=== PATIENT | male | born 1995 | race Two or more races ===

== ENCOUNTER 2021-12-17 07:56 | Inpatient (IN) | payer OTHER, SELFPAY ==
[2021-12-17] VITALS (9 sets, daily range): BP systolic 93–124; BP diastolic 50–70; PULSE 79–95; RESP 14–18; TEMP 35.9–37.2; O2SAT 94–99; BMI 35.4
--- NOTE | ~2021-12-17 | US_ITS ---
EXAMINATION: US ABDOMEN COMPLETE CLINICAL INFORMATION: Nausea and vomiting. Transaminitis.. COMPARISON: None TECHNIQUE: Real-time imaging of the abdominal viscera. FINDINGS: PANCREAS: Not well visualized due to bowel gas ABDOMINAL AORTA: The proximal, mid, and distal segments are normal in caliber. INFERIOR VENA CAVA: Visualized portions are normal. LIVER: Liver echotexture is increased probably representing fatty infiltration. The liver is upper normal in size. The liver is normal in contour. No focal hepatic lesion. There is no intrahepatic biliary duct dilatation seen. GALLBLADDER: Normal. The gallbladder is physiologically distended without evidence of stones, sludge, polyps, wall thickening or pericholecystic fluid. COMMON BILE DUCT: Normal in caliber measuring 0.2 cm in diameter. RIGHT KIDNEY: Normal. No hydronephrosis. No renal calculi or focal parenchymal lesions. The kidney measures 12.5 cm in maximum dimension. LEFT KIDNEY: There is a 5 mm stone in the midpole. No hydronephrosis. No focal parenchymal lesions. The kidney measures 12.6 cm in maximum dimension. SPLEEN: The spleen is enlarged. The spleen measures 14 cm in maximum dimension. There is a 2 x 3 cm splenule. FREE FLUID: None. US/US abdomen complete IMPRESSION: Echogenic liver probably representing fatty infiltration. Upper normal-size liver and slightly enlarged spleen. Left renal stone. Nonvisualization of the pancreas.
--- NOTE | 2021-12-17 08:39 | ED_ITS ---
HPI - Nausea/Vomiting/Diarrhea General Chief complaint: Nausea/Vomiting/Diarrhea Stated complaint: nausea Time Seen by Provider: 12/17/21 08:31 Source: patient Mode of arrival: ambulatory History of Present Illness HPI Narrative: 26-year-old male with no significant past medical history presenting to the ED complaining of fever T-max 102 degrees x 3-4 days, nausea, vomiting/dry heaving, and inability to tolerate p.o. x5 days. Denies fever today or taking antipyretics. Admits tested negative for COVID-19 on Thursday and Thursday. Den ies ear pain, sore throat, cough, SOB/CP, abdominal pain, dysuria/hematuria, recent travel, suspicious food intake, sick contacts MD elicited complaint: nausea and vomiting Onset (ago): day(s) Related Data Allergies Allergy/AdvReac Type Severity Reaction Status Date / Time No Known Allergies Allergy Verified 12/17/21 08:17 Review of Systems Review of Systems: Constitutional: + Fever, No Chills,No Fatigue, No Malaise, +anorexia ENT/Mouth: No Ear Pain, No Nasal Congestion, No Sinus Pain, No Hoarseness, No sore throat, No Rhinorrhea, No Swallowing Difficulty Eyes: No Eye Pain, No Swelling, No Redness, No Foreign Body, No Discharge, No Vision Changes Cardiovascular: No Chest Pain, No SOB, No Dyspnea on Exertion, No Palpitations Respiratory: No Cough, No Sputum, No Dyspnea Gastrointestinal: + Nausea, + Vomiting, No Diarrhea, No Constipation, No Abdominal pain Genitourinary: No Dysuria, No Urinary Frequency, No Hematuria, No Urinary Incontinence/retention, No Flank Pain Musculoskeletal: No joint pain, No Myalgias, No Joint Swelling Skin: No Skin Lesions, No rash Neuro: No Weakness, No Dizziness, No Headache Yes all other systems are reviewed and are negative [facility] Past Medical History Attestation statement: The following information was validated with the patient. Social History Social History Advance Directives: No Advance Directives Information Provided: No Physical Exam Vital Signs: Vital Signs: Last Vital Signs Temp 98.3 F 12/17/21 12:15 Pulse 90 12/17/21 12:15 Resp 18 12/17/21 12:15 BP 114/65 12/17/21 12:15 Pulse Ox 98 12/17/21 12:15 BMI result Body Mass Index 35.4 Const: General: cooperative, healthy appearing, no acute distress, alert and awake Orientation/consciousness: patient oriented x3 Limitations: no limitations HEENT: Head: Yes normal to inspection and Yes atraumatic Ears: hearing grossly normal bilaterally General nose exam: Normal external nose present Face and sinus: Yes normal facial exam Mouth: moist mucous membranes abnormal (Dry mucous membranes) Throat: Yes posterior oropharynx normal, Yes uvula midline and No peritonsillar mass Eyes: General: appearance normal, both eyes and all related structures EOM: EOMs intact bilaterally Neck: Neck: Yes normal visual inspection and Yes no meningeal signs Resp: Effort & Inspection: normal respiratory effort and no respiratory distress Auscultation: clear to auscultation bilaterally, no rales, no rhonchi and no wheezes Cardio: Rate: regular rate Heart sounds: S1 normal heart sound present and S2 normal heart sound present GI: Inspection: Yes normal to inspection Palpation (GI): Soft to palpation, nontender, no guarding and not rigid : General: Yes no CVA tenderness Back/Spine/Pelvis: Back: no CVA tenderness Skin: Rashes: no rashes Wounds: no wounds Neuro: General: patient oriented x3, tone normal and no meningeal signs Gait exam (Neuro): Normal gait present Extrem: General: Yes normal to inspection Course Course Course Narrative: -no leukocytosis. BUN elevated to 40 > likely from dehydration. -Magnesium elevated, bilirubins elevated and +transaminitis >> acetaminophen, hepatitis panel, and abdominal ultrasound ordered >>denies EtOH use -1040--CPK elevated to 2770 > third L of IVF ordered -1221--US abdomen complete IMPRESSION: Echogenic liver probably representing fatty infiltration. Upper normal-size liver and slightly enlarged spleen. Left renal stone. Nonvisualization of the pancreas. >> will consult GI -Dr. Paez recommended additional labs which were ordered. He will evaluate patient in determine the need for MRI. Patient admitted to hospitalist for further management MDM - Nausea/Vomiting/Diarrhea MDM Narrative Medical decision making narrative: 26-year-old male with no significant past medical history presenting to the ED complaining of fever T-max 102 degrees x 3-4 days, nausea, vomiting/dry heaving, and inability to tolerate p.o. x5 days. On exam vital signs stable, NAD/nontoxic appearing, dry mucous membranes noted, abdomen soft/nontender, lungs CTA. Concern for viral illness including COVID-19/influenza vs gastroent eritis vs dehydration and metabolic abnormalities. Rule out infectious etiology. Low concern for severe sepsis. No concern for appendicitis/diverticulitis or pancreatitis at this time Plan: Labs, UA, IVF, symptomatic treatment, COVID 19/influenza testing, p.o. challenge, re-evaluate Differential Diagnosis Differential diagnosis: Likely traveler's diarrhea, food poisoning, gastroenteritis and dehydration Medical Records Attestation: I reviewed the patient's medical records. Lab Data Attestation: I reviewed the patient's lab results. Result diagrams: 12/17/21 09:10 12/17/21 09:10 Labs: Lab Results 12/17/21 12/17/21 12/17/21 Range/Units 09:10 09:10 09:10 WBC 5.1 (4.8-10.8) X10*3/uL RBC 5.94 H (4.60-5.80) X10*6/uL Hgb 16.4 (14.0-18.0) g/dl Hct 47.7 (42.0-52.0) % MCV 80.3 (80.0-98.0) fL MCH 27.6 (27.0-33.0) pg MCHC 34.4 (31.0-36.0) g/dl RDW 13.4 (11.0-16.0) % Plt Count 186 (160-400) X10*3/uL MPV 12.1 (9.4-12.4) fL Immature Gran % (Auto) Cancelled Neut % (Auto) Cancelled Lymph % (Auto) Cancelled [place] % (Auto) Cancelled Eos % (Auto) Cancelled Baso % (Auto) Cancelled Lymph # (Auto) Cancelled [place] # (Auto) Cancelled Eos # (Auto) Cancelled Baso # (Auto) Cancelled Abs Immat Gran (auto) Cancelled Absolute Neuts (auto) Cancelled Absolute Nucleated RBC 0.000 (0.0-0.012) X10*3/uL Nucleated RBC % (auto) 0.0 (0.0-0.2) /100WBC Neutrophils % (Manual) 63 (45-73) % Band Neutrophils % 0 L (3-5) % Lymphocytes % (Manual) 26 (20-40) % Atypical Lymphs % (Man) 6 (0-6) % Monocytes % (Manual) 5 (2-11) % Abs Neuts (Manual) 3.2 (2.0-8.3) X10*3/uL Lymphocytes # (Manual) 1.3 (1.2-4.9) X10*3/uL Atyp Lymphs # (Manual) 0.3 x10*3/uL Monocytes # (Manual) 0.3 (0.1-1.2) X10*3/uL Platelet Estimate NORMAL (NORMAL) Plt Morphology Comment NORMAL RBC Morphology NORMAL Sodium 146 H (135-145) mmol/L Potassium 4.5 (3.3-5.1) mmol/L Chloride 109 H (96-108) mmol/L Carbon Dioxide 23 (22-29) mmol/L Anion Gap 19 (12-20) BUN 40 H (9-16) mg/dL Creatinine 1.36 (0.5-1.4) mg/dL Estim Creat Clear Calc 96.2 Estimated GFR > 60 Random Glucose 153 H (60-115) mg/dL Calcium 9.4 (8.4-10.2) mg/dL Magnesium 3.3 H (1.6-2.6) mg/dL Total Bilirubin 4.0 H (0.0-1.0) mg/dL Direct Bilirubin 2.5 H (0.0-0.5) mg/dL AST 186 H (5-37) U/L ALT 153 H (0-40) U/L Alkaline Phosphatase 104 (39-117) U/L Total Creatine Kinase 2770 H (38-174) U/L Total Protein 8.3 H (6.5-8.0) g/dL Albumin 4.2 (3.5-5.0) g/dL Lipase 90 H (8-78) U/L Acetaminophen < 1 (<30) mcg/mL COVID-19 (ZAC) Negative (Negative) COVID-19 Clin Com See Note Hep Bs Antigen (Negative) Hep Bs Antibody (Nonreactive) Hep B Core Total Ab (Nonreactive) Hepatitis C Ab (EIA) (Nonreactive) Influenza Type A (PHIL) (Negative) Influenza Type B (PHIL) (Negative) Influenza A & B Note 12/17/21 12/17/21 Range/Units 09:10 09:10 WBC (4.8-10.8) X10*3/uL RBC (4.60-5.80) X10*6/uL Hgb (14.0-18.0) g/dl Hct (42.0-52.0) % MCV (80.0-98.0) fL MCH (27.0-33.0) pg MCHC (31.0-36.0) g/dl RDW (11.0-16.0) % Plt Count (160-400) X10*3/uL MPV (9.4-12.4) fL Immature Gran % (Auto) Neut % (Auto) Lymph % (Auto) [place] % (Auto) Eos % (Auto) Baso % (Auto) Lymph # (Auto) [place] # (Auto) Eos # (Auto) Baso # (Auto) Abs Immat Gran (auto) Absolute Neuts (auto) Absolute Nucleated RBC (0.0-0.012) X10*3/uL Nucleated RBC % (auto) (0.0-0.2) /100WBC Neutrophils % (Manual) (45-73) % Band Neutrophils % (3-5) % Lymphocytes % (Manual) (20-40) % Atypical Lymphs % (Man) (0-6) % Monocytes % (Manual) (2-11) % Abs Neuts (Manual) (2.0-8.3) X10*3/uL Lymphocytes # (Manual) (1.2-4.9) X10*3/uL Atyp Lymphs # (Manual) x10*3/uL Monocytes # (Manual) (0.1-1.2) X10*3/uL Platelet Estimate (NORMAL) Plt Morphology Comment RBC Morphology Sodium (135-145) mmol/L Potassium (3.3-5.1) mmol/L Chloride (96-108) mmol/L Carbon Dioxide (22-29) mmol/L Anion Gap (12-20) BUN (9-16) mg/dL Creatinine (0.5-1.4) mg/dL Estim Creat Clear Calc Estimated GFR Random Glucose (60-115) mg/dL Calcium (8.4-10.2) mg/dL Magnesium (1.6-2.6) mg/dL Total Bilirubin (0.0-1.0) mg/dL Direct Bilirubin (0.0-0.5) mg/dL AST (5-37) U/L ALT (0-40) U/L Alkaline Phosphatase (39-117) U/L Total Creatine Kinase (38-174) U/L Total Protein (6.5-8.0) g/dL Albumin (3.5-5.0) g/dL Lipase (8-78) U/L Acetaminophen (<30) mcg/mL COVID-19 (ZAC) (Negative) COVID-19 Clin Com Hep Bs Antigen Negative (Negative) Hep Bs Antibody NONREACTIVE (Nonreactive) Hep B Core Total Ab Nonreactive (Nonreactive) Hepatitis C Ab (EIA) Nonreactive (Nonreactive) Influenza Type A (PHIL) Negative (Negative) Influenza Type B (PHIL) Negative (Negative) Influenza A & B Note See Note Discharge Plan Discharge Clinical Impression: Transaminitis, Elevated BUN, Rhabdomyolysis Patient Disposition: Admitted As Inpatient
[2021-12-17] MEDS: Magnesium Hydrox/Alum Hydrox 30 ML ORAL.SUSP PO (09:11)
[2021-12-17] MEDS: 0.9 % Sodium Chloride 1,000 ML 999 ML IV ×3 (09:11→12:18)
[2021-12-17] MEDS: Famotidine/PF 20 MG/2 ML VIAL IVPUSH (09:11)
[2021-12-17] MEDS: ondansetron HCL 4 MG/2 ML VIAL IVPUSH (09:11)
[2021-12-17 09:23] LABS: Hematocrit 47.7 % (42.0-52.0); Hemoglobin 16.4 g/dl (14.0-18.0); Mean Corpuscular HGB Conc 34.4 g/dl (31.0-36.0); Mean Corpuscular Hemoglobin 27.6 pg (27.0-33.0); Mean Corpuscular Volume 80.3 fL (80.0-98.0); Mean Platelet Volume 12.1 fL (9.4-12.4); Platelet Count 186 X10*3/uL (160-400); Red Blood Count 5.94 X10*6/uL (4.60-5.80); Red Cell Distribution Width 13.4 % (11.0-16.0); White Blood Count 5.1 X10*3/uL (4.8-10.8)
[2021-12-17 09:40] LABS: COVID-19 Test Negative (Negative); IDNOW Serial# 55D5AD1C; IDNOW Serial# 9DB6401D; Influenza A Negative (Negative); Influenza B2 Negative (Negative)
[2021-12-17 09:43] LABS: Alanine Aminotransferase 153 U/L (0-40); Albumin Level 4.2 g/dL (3.5-5.0); Alkaline Phosphatase 104 U/L (39-117); Anion Gap 19 (12-20); Aspartate Amino Transferase 186 U/L (5-37); Bilirubin Direct 2.5 mg/dL (0.0-0.5); Blood Urea Nitrogen 40 mg/dL (9-16); Calcium 9.4 mg/dL (8.4-10.2); Carbon Dioxide 23 mmol/L (22-29); Chloride 109 mmol/L (96-108); Creatinine Clr Calc Pharmacy 96.2; Estimated Glomerular Filt Rate > 60; Glucose Random 153 mg/dL (60-115); Lipase 90 U/L (8-78); Magnesium 3.3 mg/dL (1.6-2.6); Potassium 4.5 mmol/L (3.3-5.1); Sodium 146 mmol/L (135-145); Total Protein 8.3 g/dL (6.5-8.0)
[2021-12-17 09:58] LABS: Atypical Lymph Absolute Manual 0.3 x10*3/uL; Atypical Lymphs Percent Manual 6 % (0-6); Band Neutrophils Percent 0 % (3-5); Lymphocytes Absolute Manual 1.3 X10*3/uL (1.2-4.9); Lymphocytes Percent Manual 26 % (20-40); Monocytes Absolute Manual 0.3 X10*3/uL (0.1-1.2); Monocytes Percent Manual 5 % (2-11); Neutrophils Absolute Manual 3.2 X10*3/uL (2.0-8.3); Neutrophils Percent Manual 63 % (45-73)
[2021-12-17 10:00] LABS: Platelet Estimate NORMAL (NORMAL); Platelet Morphology Comment NORMAL; RBC Morphology NORMAL
[2021-12-17 10:34] LABS: Acetaminophen LAB < 1 mcg/mL (<30)
[2021-12-17 10:58] LABS: HBS Num1 3.92 mIU/mL (0-7.99); Hepatitis B Core Antibody Nonreactive (Nonreactive); Hepatitis B Surface Antigen Negative (Negative); ~HepC Num1 0.14 S/CO (0.00-0.79); ~Hepatitis B Surface Antibody NONREACTIVE (Nonreactive); ~Hepatitis C Antibody Nonreactive (Nonreactive)
--- NOTE | 2021-12-17 11:50 | PHA.MEDREC ---
Pharmacy Consult ? Medication Reconciliation Pharmacy has completed the medication reconciliation. Patient reports no medications at home. Constance Hsu, RafiD
--- NOTE | 2021-12-17 13:21 | PM.GICN ---
History of Present Illness Data of Consult Service Date: 12/17/21 Requesting physician: Idris Frazier Primary Care Provider: None Physician HPI Reason for consult: abn LFT 26 yr old m previously healthy, who I am seeing for abn LFT Patient was feverish with poor appetite for last 4 days with dry heaves but no emesis. He denies abdominal pain, no diarrhea or constipation and no melena or rectal bleeding. He also noted non itchy rash on arms. No sore throat. No headches or meningism. He denies foreign travel, no sick contacts, and no use of OTC. No IVDA, denies alcohol use. On coming to ED labs with raised BUN, high CK, AST< ALT and Bili 4. WCC neg. US with fatty liver and mild splenomegaly. Review of Systems Review of Systems: Constitutional: + Fever, No Chills,No Fatigue, No Malaise, +anorexia ENT/Mouth: No Ear Pain, No Nasal Congestion, No Sinus Pain, No Hoarseness, No sore throat, No Rhinorrhea, No Swallowing Difficulty Eyes: No Eye Pain, No Swelling, No Redness, No Foreign Body, No Discharge, No Vision Changes Cardiovascular: No Chest Pain, No SOB, No Dyspnea on Exertion, No Palpitations Respiratory: No Cough, No Sputum, No Dyspnea Gastrointestinal: + Nausea, -vomiting, No Diarrhea, No Constipation, No Abdominal pain Genitourinary: No Dysuria, No Urinary Frequency, No Hematuria, No Urinary Incontinence/retention, No Flank Pain Musculoskeletal: No joint pain, No Myalgias, No Joint Swelling Skin: No Skin Lesions, No rash Neuro: No Weakness, No Dizziness, No Headache PMFSH Past Medical History Cognitive capacity: none Functional capacity: independent ambulation Family History Pertinent family history: No FH of liver disease Social History Social History Alcohol intake: current Alcohol intake frequency: holidays/special occasions only Patient Tobacco Use Status: Never used Tobacco Use of substances other than those prescribed or required for medical reasons: No Advance Directives: No Advance Directives Information Provided: No Travel History History of recent travel: No Meds Allergies Allergy/AdvReac Type Severity Reaction Status Date / Time No Known Allergies Allergy Verified 12/17/21 08:17 Active Medications: Current Medications Pharmacy Consult (Consult Rx Perform Med Rec) 1 each MISCELLANE ONCE PRN PRN Reason: Consult order Physical Exam Vital Signs: Vital Signs: Last Vital Signs Temp 98.3 F 12/17/21 12:15 Pulse 90 12/17/21 12:15 Resp 18 12/17/21 12:15 BP 114/65 12/17/21 12:15 Pulse Ox 98 12/17/21 12:15 BMI result Body Mass Index 35.4 EXAM: GENERAL: The patient is obese, relaxed VITAL SIGNS:see workflow HEENT: Mildly icteric sclerae, PERRLA, EOMI. Oropharynx clear. Moist mucous membranes. Conjunctivae appear well perfused. No thyroid mass. Enlarged and inflammed tonsils without exudate. CHEST: Chest wall is nontender. HEART: Regular rate and rhythm without murmurs. LUNGS: Clear to auscultation bilaterally. ABDOMEN: Soft, positive bowel sounds, nontender, no organomegaly.no flank tenderness SKIN: dry skin, macular rash on arm, NEUROLOGIC: Cranial nerves II-XII intact without motor/sensory deficit. MS; normal Const: General: cooperative, healthy appearing, no acute distress, alert and awake Orientation/consciousness: patient oriented x3 Limitations: no limitations HEENT: Head: Yes normal to inspection and Yes atraumatic Ears: hearing grossly normal bilaterally General nose exam: Normal external nose present Face and sinus: Yes normal facial exam Mouth: moist mucous membranes abnormal (Dry mucous membranes) Throat: Yes posterior oropharynx normal, Yes uvula midline and No peritonsillar mass Eyes: General: appearance normal, both eyes and all related structures EOM: EOMs intact bilaterally Neck: Neck: Yes normal visual inspection and Yes no meningeal signs Resp: Effort & Inspection: normal respiratory effort and no respiratory distress Auscultation: clear to auscultation bilaterally, no rales, no rhonchi and no wheezes Cardio: Rate: regular rate Heart sounds: S1 normal heart sound present and S2 normal heart sound present GI: Inspection: Yes normal to inspection Palpation (GI): Soft to palpation, nontender, no guarding and not rigid : General: Yes no CVA tenderness Back/Spine/Pelvis: Back: no CVA tenderness Skin: Rashes: no rashes Wounds: no wounds Neuro: General: patient oriented x3, tone normal and no meningeal signs Gait exam (Neuro): Normal gait present Extrem: General: Yes normal to inspection Psych: Appearance: grossly normal Results Labs CBC & Chem 7: 12/17/21 09:10 12/17/21 09:10 Labs: Short CBC 12/17/21 Range/Units 09:10 WBC 5.1 (4.8-10.8) X10*3/uL Hgb 16.4 (14.0-18.0) g/dl Hct 47.7 (42.0-52.0) % Plt Count 186 (160-400) X10*3/uL BMP 12/17/21 09:10 Sodium 146 H Potassium 4.5 Chloride 109 H Carbon Dioxide 23 BUN 40 H Creatinine 1.36 Calcium 9.4 Cardiac Enzymes 12/17/21 Range/Units 09:10 Total Creatine Kinase 2770 H (38-174) U/L Liver Function 12/17/21 Range/Units 09:10 Total Bilirubin 4.0 H (0.0-1.0) mg/dL Direct Bilirubin 2.5 H (0.0-0.5) mg/dL AST 186 H (5-37) U/L ALT 153 H (0-40) U/L Alkaline Phosphatase 104 (39-117) U/L Albumin 4.2 (3.5-5.0) g/dL Assessment and Plan (1) Mononucleosis, infectious, with hepatitis: Status: Acute Plan 1/ Fever, malaise with abn LFT, and splenomegaly with pos monospot test. Most consistent with infectious mononucleosis. ddx; acute autoimmune hepatitis, wilsons disease, budd chiari, other acute infectious hepatitis, toxins PLAN: 1/ Supportive care, with fluids, and analgesics if needed 2/ Trend LFT, avoid hepatotoxins, check EBV antbodies 3/ Awaiting other tests incl viral hep serologies, acetaminophen level, ceruloplasmin, and strep test. Procedures Date of Service Date of Service: 12/17/21
[2021-12-17 14:13] LABS: INTERNATIONAL NORM RATIO 1.1 (0.9-1.1); Prothrombin Time 12.1 SEC (9.9-13.0)
--- NOTE | 2021-12-17 14:14 | PM.IMHP ---
History of Present Illness Date of Service: 12/17/21 Chief Complaint: Fever 26-year-old man presenting to the ER with complaints of fever, fatigue, nausea, pruritic rash and poor appetite. He reports this has been ongoing for about 3-4 days. He denied chest pain, shortness breath, diarrhea, recent travel, recent illness. Apparently he was tested for COVID-19 which was negative because he thought he may have had this. [place] screen in the ER was positive, total bilirubin 4.0, AST 186, ALT 153, total creatinine kinase 2770, lipase 90. Hepatitis screen negative, acetaminophen level less than 1. Hemodynamically stable. He received 2 L of IV fluids in the ER as well as Zofran, Pepcid and Maalox. Will be admitted for further management and treatment of acute mononucleosis. Review of Systems Review of Systems: Denies any recent fever chills or decrease in appetite respiratory denies any shortness of breath coverage production cardiovascular Denies chest pain gastrointestinal see HPI genitourinary denies any dysuria frequency or hematuria musculoskeletal denies any joint pain or swelling neuropsych denies any weakness or seizures all other systems reviewed are negative [facility] Social History Alcohol intake: current Alcohol intake frequency: holidays/special occasions only Patient Tobacco Use Status: Never used Tobacco Use of substances other than those prescribed or required for medical reasons: No Advance Directives: No Advance Directives Information Provided: No Meds Allergies Allergy/AdvReac Type Severity Reaction Status Date / Time No Known Allergies Allergy Verified 12/17/21 08:17 Active Medications: Current Medications Pharmacy Consult (Consult Rx Perform Med Rec) 1 each MISCELLANE ONCE PRN PRN Reason: Consult order Physical Exam Vital Signs and Narrative: Vital Signs: Last Vital Signs Temp 98.3 F 12/17/21 12:15 Pulse 90 12/17/21 12:15 Resp 18 12/17/21 12:15 BP 114/65 12/17/21 12:15 Pulse Ox 98 12/17/21 12:15 BMI result Body Mass Index 35.4 Appearing in no acute distress head is normocephalic atraumatic eyes pupils are PERRLA sclera is anicteric mouth throat mucous membranes are intact and moist neck is supple, noted lymphadenopathy lung sounds are clear to auscultation heart regular rate rhythm, clear S1, S2 positive bowel sounds, abdomen is soft, nontender neuro patient is alert x3, no focal deficits No visible rash Results Labs CBC and Chem 7: 12/17/21 09:10 12/17/21 09:10 Labs: Laboratory Results - last 24 hr 12/17/21 12/17/21 12/17/21 09:10 09:10 09:10 MCV 80.3 MCH 27.6 MCHC 34.4 RDW 13.4 Plt Count 186 MPV 12.1 Immature Gran % (Auto) Cancelled Neut % (Auto) Cancelled Lymph % (Auto) Cancelled [place] % (Auto) Cancelled Eos % (Auto) Cancelled Baso % (Auto) Cancelled Lymph # (Auto) Cancelled [place] # (Auto) Cancelled Eos # (Auto) Cancelled Baso # (Auto) Cancelled Abs Immat Gran (auto) Cancelled Absolute Neuts (auto) Cancelled Absolute Nucleated RBC 0.000 Nucleated RBC % (auto) 0.0 Neutrophils % (Manual) 63 Band Neutrophils % 0 L Lymphocytes % (Manual) 26 Atypical Lymphs % (Man) 6 Monocytes % (Manual) 5 Abs Neuts (Manual) 3.2 Lymphocytes # (Manual) 1.3 Atyp Lymphs # (Manual) 0.3 Monocytes # (Manual) 0.3 Platelet Estimate NORMAL Plt Morphology Comment NORMAL RBC Morphology NORMAL PT INR Anion Gap 19 Estim Creat Clear Calc 96.2 Estimated GFR > 60 Random Glucose 153 H Calcium 9.4 Magnesium 3.3 H Total Bilirubin 4.0 H Direct Bilirubin 2.5 H AST 186 H ALT 153 H Alkaline Phosphatase 104 Total Creatine Kinase 2770 H Total Protein 8.3 H Albumin 4.2 Lipase 90 H Acetaminophen < 1 COVID-19 (ZAC) Negative COVID-19 Clin Com See Note Hep Bs Antigen Hep Bs Antibody Hep B Core Total Ab Hepatitis C Ab (EIA) Influenza Type A (PHIL) Influenza Type B (PHIL) Influenza A & B Note 12/17/21 12/17/21 12/17/21 09:10 09:10 13:59 MCV MCH MCHC RDW Plt Count MPV Immature Gran % (Auto) Neut % (Auto) Lymph % (Auto) [place] % (Auto) Eos % (Auto) Baso % (Auto) Lymph # (Auto) [place] # (Auto) Eos # (Auto) Baso # (Auto) Abs Immat Gran (auto) Absolute Neuts (auto) Absolute Nucleated RBC Nucleated RBC % (auto) Neutrophils % (Manual) Band Neutrophils % Lymphocytes % (Manual) Atypical Lymphs % (Man) Monocytes % (Manual) Abs Neuts (Manual) Lymphocytes # (Manual) Atyp Lymphs # (Manual) Monocytes # (Manual) Platelet Estimate Plt Morphology Comment RBC Morphology PT 12.1 INR 1.1 Anion Gap Estim Creat Clear Calc Estimated GFR Random Glucose Calcium Magnesium Total Bilirubin Direct Bilirubin AST ALT Alkaline Phosphatase Total Creatine Kinase Total Protein Albumin Lipase Acetaminophen COVID-19 (ZAC) COVID-19 Clin Com Hep Bs Antigen Negative Hep Bs Antibody NONREACTIVE Hep B Core Total Ab Nonreactive Hepatitis C Ab (EIA) Nonreactive Influenza Type A (PHIL) Negative Influenza Type B (PHIL) Negative Influenza A & B Note See Note Imaging Radiologist's Impressions: Impressions Abdomen Ultrasound 12/17/21 11:30 IMPRESSION: Echogenic liver probably representing fatty infiltration. Upper normal-size liver and slightly enlarged spleen. Left renal stone. Nonvisualization of the pancreas. Assessment and Plan (1) Mononucleosis, infectious, with hepatitis: Status: Acute Plan 26 year old man admitted with likely Mononucleosis with symptoms of fever, lymphadenopathy, splenomegaly Mononucleosis classic symptoms fever, rash, splenomegaly mono screen positive/EBV pending GI following More supportive care at this point including treating the fever and any nausea or vomiting Follow LFTs IV fluids Hypernatremia, mild Likely related to dehydration from nausea and vomiting Mild rhabdomyolysis Continue IV fluids DVT prophylaxis with early ambulation Attending Dr. cMgrath Full code Quality Stroke Does the patient have a stroke diagnosis?: No VTE Prior VTE?: No VTE Risk Level:: Medical - moderate - high VTE Device Contraindication: Treatment Not Indicated VTE Drug Contraindication: Treatment Not Indicated
[2021-12-17 15:46] LABS: Monotest Positive (Negative)
[2021-12-17 17:19] LABS: Strep A Nucleic Acid Negative (Negative)
[2021-12-17] MEDS: 0.9 % Sodium Chloride 1,000 ML 150 ML IVCONT (17:46)
[2021-12-17 18:36] LABS: Appearance Urine CLEAR; Color Urine YELLOW; Glucose Urine UA NEG (NEG); Leukocyte Esterase Urine NEG (NEG); Nitrite Urine NEG (NEG); UACC Culture Trigger NO; Urine Blood NEG (NEG); Urine Ketones 40 MG/DL (NEG); Urine Protein 1+ MG/DL (NEG-TRACE)
[2021-12-17 18:52] LABS: Amphetamine Screen Urine Not Detected (Not Detect); Barbiturates, Urine Not Detected (Not Detect); Benzodiazepines Screen Urine Not Detected (Not Detect); Cannabinoid Screen Urine Not Detected (Not Detect); Cocaine Screen Urine Not Detected (Not Detect); Fentanyl, urine Not Detected (Not Detect); Opiate Screen Urine Not Detected (Not Detect); Phencyclidine Screen Urine Not Detected (Not Detect)
[2021-12-17 19:55] LABS: Bacteria Urine TRACE /LPF; Squamous Epithelial Cell Urine TRACE /LPF
--- NOTE | 2021-12-17 20:56 | MHC.CM.PN ---
CM met with admitted with bed assignment 372. Acute Mononucleosis. A&Ox4. No PCP. Declines HCP. 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 Lives with parents and siblings. No DMR/services. Vax/boosted/[employer].(12/15/20, 01/05/21 & 08/16/21). D/C plan is home without services. Family to provide transportation. CM to follow for d/c needs.
[2021-12-18] MEDS: 0.9 % Sodium Chloride 1,000 ML 150 ML IVCONT ×3 (06:29→21:37)
[2021-12-18 07:46] VITALS: BP 110/65; PULSE 80; RESP 17; TEMP 37.3; O2SAT 100
[2021-12-18 08:02] LABS: Hepatitis A Antibody IgM 0.13 Index (0-0.79); ~Hepatitis A Antibody IgM Nonreactive (Nonreactive)
--- NOTE | 2021-12-18 09:16 | HO.PM.IMPN ---
Subjective Subjective Date of Service: 12/18/21 Review of Systems Follow up [place] feeling better no nausea or vomiting Physical Exam Vital Signs: Vital Signs: Last Vital Signs Temp 99.1 F 12/18/21 07:46 Pulse 80 12/18/21 07:46 Resp 17 12/18/21 07:46 BP 110/65 12/18/21 07:46 Pulse Ox 100 12/18/21 07:46 BMI result Body Mass Index 35.4 Appearing in no acute distress lung sounds are clear to auscultation heart regular rate rhythm, clear S1, S2 positive bowel sounds, abdomen is soft, nontender neuro patient is alert x3, no focal deficits Objective Data Active Medications Acetaminophen (Acetaminophen 325 Mg Tablet) 650 mg PO Q6H PRN PRN Reason: Pain, Mild (Pain Scale 1-3) Sodium Chloride (Ns) 1,000 mls @ 150 mls/hr IVCONT .[id number] [facility] Last Admin: 12/18/21 06:29 Dose: 150 mls/hr Documented by: CARA Ondansetron HCl (Ondansetron Hcl 4 Mg/2 Ml Vial) 4 mg IVPUSH Q8H PRN PRN Reason: Nausea and Vomiting Pharmacy Consult (Consult Rx Perform Med Rec) 1 each MISCELLANE ONCE PRN PRN Reason: Consult order Sodium Chloride (0.9 % Sodium Chloride Flush 3 Ml Syringe) 3 ml IVFLUSH QSHIFT [facility] Last Admin: 12/18/21 07:50 Dose: Not Given Documented by: ISA Non-Admin Reason: IV Running Labs CBC & Chem 7: 12/18/21 11:26 12/18/21 11:26 Labs: Laboratory Results - last 24 hr 12/17/21 12/17/21 12/17/21 09:10 09:10 09:10 MCV 80.3 MCH 27.6 MCHC 34.4 RDW 13.4 Plt Count 186 MPV 12.1 Immature Gran % (Auto) Cancelled Neut % (Auto) Cancelled Lymph % (Auto) Cancelled [place] % (Auto) Cancelled Eos % (Auto) Cancelled Baso % (Auto) Cancelled Lymph # (Auto) Cancelled [place] # (Auto) Cancelled Eos # (Auto) Cancelled Baso # (Auto) Cancelled Abs Immat Gran (auto) Cancelled Absolute Neuts (auto) Cancelled Absolute Nucleated RBC 0.000 Nucleated RBC % (auto) 0.0 Neutrophils % (Manual) 63 Band Neutrophils % 0 L Lymphocytes % (Manual) 26 Atypical Lymphs % (Man) 6 Monocytes % (Manual) 5 Abs Neuts (Manual) 3.2 Lymphocytes # (Manual) 1.3 Atyp Lymphs # (Manual) 0.3 Monocytes # (Manual) 0.3 Platelet Estimate NORMAL Plt Morphology Comment NORMAL RBC Morphology NORMAL PT INR Anion Gap 19 Estim Creat Clear Calc 96.2 Estimated GFR > 60 Random Glucose 153 H Calcium 9.4 Magnesium 3.3 H Total Bilirubin 4.0 H Direct Bilirubin 2.5 H AST 186 H ALT 153 H Alkaline Phosphatase 104 Total Creatine Kinase 2770 H Total Protein 8.3 H Albumin 4.2 Lipase 90 H Urine Color Urine Appearance Urine pH Ur Specific [place] Urine Protein Urine Glucose (UA) Urine Ketones Urine Blood Urine Nitrite Ur Leukocyte Esterase Urine RBC Urine WBC Ur Squamous Epith Cells Urine Bacteria Urine Opiates Screen Urine Fentanyl Screen Acetaminophen < 1 Ur Barbiturates Screen Ur Phencyclidine Scrn Ur Amphetamines Screen U Benzodiazepines Scrn Urine Cocaine Screen U Marijuana (THC) Screen COVID-19 (ZAC) Negative COVID-19 Clin Com See Note Hepatitis A IgM Ab Hep Bs Antigen Hep Bs Antibody Hep B Core Total Ab Hepatitis C Ab (EIA) Monoscreen Influenza Type A (PHIL) Influenza Type B (PHIL) Influenza A & B Note S. pyogenes GrpA PHIL 12/17/21 12/17/21 12/17/21 09:10 09:10 13:59 MCV MCH MCHC RDW Plt Count MPV Immature Gran % (Auto) Neut % (Auto) Lymph % (Auto) [place] % (Auto) Eos % (Auto) Baso % (Auto) Lymph # (Auto) [place] # (Auto) Eos # (Auto) Baso # (Auto) Abs Immat Gran (auto) Absolute Neuts (auto) Absolute Nucleated RBC Nucleated RBC % (auto) Neutrophils % (Manual) Band Neutrophils % Lymphocytes % (Manual) Atypical Lymphs % (Man) Monocytes % (Manual) Abs Neuts (Manual) Lymphocytes # (Manual) Atyp Lymphs # (Manual) Monocytes # (Manual) Platelet Estimate Plt Morphology Comment RBC Morphology PT 12.1 INR 1.1 Anion Gap Estim Creat Clear Calc Estimated GFR Random Glucose Calcium Magnesium Total Bilirubin Direct Bilirubin AST ALT Alkaline Phosphatase Total Creatine Kinase Total Protein Albumin Lipase Urine Color Urine Appearance Urine pH Ur Specific [place] Urine Protein Urine Glucose (UA) Urine Ketones Urine Blood Urine Nitrite Ur Leukocyte Esterase Urine RBC Urine WBC Ur Squamous Epith Cells Urine Bacteria Urine Opiates Screen Urine Fentanyl Screen Acetaminophen Ur Barbiturates Screen Ur Phencyclidine Scrn Ur Amphetamines Screen U Benzodiazepines Scrn Urine Cocaine Screen U Marijuana (THC) Screen COVID-19 (ZAC) COVID-19 Clin Com Hepatitis A IgM Ab Nonreactive Hep Bs Antigen Negative Hep Bs Antibody NONREACTIVE Hep B Core Total Ab Nonreactive Hepatitis C Ab (EIA) Nonreactive Monoscreen Influenza Type A (PHIL) Negative Influenza Type B (PHIL) Negative Influenza A & B Note See Note S. pyogenes GrpA PHIL 12/17/21 12/17/21 12/17/21 13:59 13:59 16:58 MCV MCH MCHC RDW Plt Count MPV Immature Gran % (Auto) Neut % (Auto) Lymph % (Auto) [place] % (Auto) Eos % (Auto) Baso % (Auto) Lymph # (Auto) [place] # (Auto) Eos # (Auto) Baso # (Auto) Abs Immat Gran (auto) Absolute Neuts (auto) Absolute Nucleated RBC Nucleated RBC % (auto) Neutrophils % (Manual) Band Neutrophils % Lymphocytes % (Manual) Atypical Lymphs % (Man) Monocytes % (Manual) Abs Neuts (Manual) Lymphocytes # (Manual) Atyp Lymphs # (Manual) Monocytes # (Manual) Platelet Estimate Plt Morphology Comment RBC Morphology PT INR Anion Gap Estim Creat Clear Calc Estimated GFR Random Glucose Calcium Magnesium Total Bilirubin Direct Bilirubin AST ALT Alkaline Phosphatase Total Creatine Kinase Total Protein Albumin Lipase Urine Color Urine Appearance Urine pH Ur Specific [place] Urine Protein Urine Glucose (UA) Urine Ketones Urine Blood Urine Nitrite Ur Leukocyte Esterase Urine RBC Urine WBC Ur Squamous Epith Cells Urine Bacteria Urine Opiates Screen Urine Fentanyl Screen Acetaminophen Ur Barbiturates Screen Ur Phencyclidine Scrn Ur Amphetamines Screen U Benzodiazepines Scrn Urine Cocaine Screen U Marijuana (THC) Screen COVID-19 (ZAC) COVID-19 Clin Com Hepatitis A IgM Ab Hep Bs Antigen Hep Bs Antibody Hep B Core Total Ab Hepatitis C Ab (EIA) Monoscreen Cancelled Positive A Influenza Type A (PHIL) Influenza Type B (PHIL) Influenza A & B Note S. pyogenes GrpA PHIL Negative 12/17/21 12/17/21 18:21 18:21 MCV MCH MCHC RDW Plt Count MPV Immature Gran % (Auto) Neut % (Auto) Lymph % (Auto) [place] % (Auto) Eos % (Auto) Baso % (Auto) Lymph # (Auto) [place] # (Auto) Eos # (Auto) Baso # (Auto) Abs Immat Gran (auto) Absolute Neuts (auto) Absolute Nucleated RBC Nucleated RBC % (auto) Neutrophils % (Manual) Band Neutrophils % Lymphocytes % (Manual) Atypical Lymphs % (Man) Monocytes % (Manual) Abs Neuts (Manual) Lymphocytes # (Manual) Atyp Lymphs # (Manual) Monocytes # (Manual) Platelet Estimate Plt Morphology Comment RBC Morphology PT INR Anion Gap Estim Creat Clear Calc Estimated GFR Random Glucose Calcium Magnesium Total Bilirubin Direct Bilirubin AST ALT Alkaline Phosphatase Total Creatine Kinase Total Protein Albumin Lipase Urine Color YELLOW Urine Appearance CLEAR Urine pH 6.0 Ur Specific [place] 1.020 Urine Protein 1+ H Urine Glucose (UA) NEG Urine Ketones 40 Urine Blood NEG Urine Nitrite NEG Ur Leukocyte Esterase NEG Urine RBC 1-4 Urine WBC 1-4 Ur Squamous Epith Cells TRACE Urine Bacteria TRACE Urine Opiates Screen Not Detected Urine Fentanyl Screen Not Detected Acetaminophen Ur Barbiturates Screen Not Detected Ur Phencyclidine Scrn Not Detected Ur Amphetamines Screen Not Detected U Benzodiazepines Scrn Not Detected Urine Cocaine Screen Not Detected U Marijuana (THC) Screen Not Detected COVID-19 (ZAC) COVID-19 Clin Com Hepatitis A IgM Ab Hep Bs Antigen Hep Bs Antibody Hep B Core Total Ab Hepatitis C Ab (EIA) Monoscreen Influenza Type A (PHIL) Influenza Type B (PHIL) Influenza A & B Note S. pyogenes GrpA PHIL Assessment and Plan (1) Mononucleosis, infectious, with hepatitis: Status: Acute Plan 26 year old man admitted with likely Mononucleosis with symptoms of fever,? lymphadenopathy, splenomegaly Mononucleosis classic symptoms fever, rash, splenomegaly mono screen positive/EBV pending More supportive care at this point including treating the fever and any nausea or vomiting LFTS trending down IV fluids Hypernatremia. Resolved Likely related to dehydration from nausea and vomiting Mild rhabdomyolysis trending down Continue IV fluids DVT prophylaxis with early ambulation Attending Dr. French Full code Quality Stroke Does the patient have a stroke diagnosis?: No VTE Prior VTE?: No VTE Risk Level:: Medical - moderate - high VTE Device Contraindication: Treatment Not Indicated VTE Drug Contraindication: Treatment Not Indicated
[2021-12-18 11:36] LABS: Basophils Percent Auto 0.3 % (0-2); Eosinophils Absolute Auto 0.1 X10*3/uL (0.0-0.4); Eosinophils Percent Auto 3.1 % (0-4); Hemoglobin 11.9 g/dl (14.0-18.0); Imm Gran Abs Auto 0.01 X10*3/uL (0.00-0.03); Imm Gran Pct Auto 0.3 % (0.0-0.4); Lymphocytes Absolute Auto 1.6 X10*3/uL (1.2-4.9); Lymphocytes Percent Auto 40.9 % (20-40); MANUAL DIFF FLAG SCAN; Mean Corpuscular Hemoglobin 27.8 pg (27.0-33.0); Mean Corpuscular Volume 81.8 fL (80.0-98.0); Mean Platelet Volume 11.9 fL (9.4-12.4); Monocytes Absolute Auto 0.4 X10*3/uL (0.1-1.2); Monocytes Percent Auto 10.5 % (2-11); Neutrophils Absolute Auto 1.8 x10*3/uL (2.0-8.3); Neutrophils Percent Auto 44.9 % (45-73); Platelet Count 154 X10*3/uL (160-400); Red Blood Count 4.28 X10*6/uL (4.60-5.80); Red Cell Distribution Width 13.6 % (11.0-16.0); SCAN SMEAR FLAG 1; White Blood Count 3.9 X10*3/uL (4.8-10.8)
[2021-12-18 11:54] LABS: SLIDE REVIEW VERIFIED
[2021-12-18 12:04] LABS: Alanine Aminotransferase 126 U/L (0-40); Albumin Level 3.2 g/dL (3.5-5.0); Alkaline Phosphatase 84 U/L (39-117); Anion Gap 8 (12-20); Aspartate Amino Transferase 117 U/L (5-37); Bilirubin Total 1.7 mg/dL (0.0-1.0); Blood Urea Nitrogen 15 mg/dL (9-16); Carbon Dioxide 24 mmol/L (22-29); Chloride 114 mmol/L (96-108); Creatinine Clr Calc Pharmacy 157.7; Estimated Glomerular Filt Rate > 60; Glucose Random 111 mg/dL (60-115); Magnesium 2.6 mg/dL (1.6-2.6); Potassium 4.2 mmol/L (3.3-5.1); Sodium 142 mmol/L (135-145); Total Protein 5.8 g/dL (6.5-8.0)
[2021-12-18 15:33] VITALS: BP 118/61; PULSE 87; RESP 18; TEMP 36.9; O2SAT 97
[2021-12-18 23:25] VITALS: BP 99/46; PULSE 90; RESP 18; TEMP 37.3; O2SAT 98
[2021-12-19] MEDS: 0.9 % Sodium Chloride 1,000 ML 150 ML IVCONT (03:22)
[2021-12-19 07:50] VITALS: BP 110/59; PULSE 94; RESP 17; TEMP 37.2; O2SAT 97
[2021-12-19 08:52] LABS: Hematocrit 32.1 % (42.0-52.0); Hemoglobin 10.8 g/dl (14.0-18.0); Mean Corpuscular HGB Conc 33.6 g/dl (31.0-36.0); Mean Corpuscular Hemoglobin 27.8 pg (27.0-33.0); Mean Corpuscular Volume 82.5 fL (80.0-98.0); Platelet Count 176 X10*3/uL (160-400); Red Blood Count 3.89 X10*6/uL (4.60-5.80); Red Cell Distribution Width 13.6 % (11.0-16.0); White Blood Count 4.1 X10*3/uL (4.8-10.8)
[2021-12-19 09:16] LABS: Anion Gap 7 (12-20); Blood Urea Nitrogen 8 mg/dL (9-16); Calcium 8.2 mg/dL (8.4-10.2); Carbon Dioxide 25 mmol/L (22-29); Chloride 113 mmol/L (96-108); Creatinine Clr Calc Pharmacy 176.8; Estimated Glomerular Filt Rate > 60; Glucose Random 87 mg/dL (60-115); Potassium 3.9 mmol/L (3.3-5.1); Sodium 141 mmol/L (135-145)
--- NOTE | 2021-12-19 10:02 | P.DS_ITS ---
DS: Providers Provider Date of Service: 12/19/21 Date of admission: 12/17/21 16:45 Date of discharge: 12/19/21 Primary care physician: None Physician Consults: 12/18/21 15:33 Consult to Gastroenterology Routine Consulting Provider: Suzy Paez Reason for consultation: mono. transaminitis Has provider been notified: No Attending physician on discharge: Carlos French Discharging clinician: Karen Romero DS: Diagnosis Discharge Diagnosis (1) Mononucleosis, infectious, with hepatitis: Status: Acute (2) Transaminitis: Status: Acute (3) Rhabdomyolysis: Status: Acute (4) ARELI (acute kidney injury): Status: Acute DS: Summary Hospital Course Hospital Course: From H&P on day of admission ?26-year-old man presenting to the ER with complaints of fever, fatigue, nausea, pruritic rash and poor appetite.? He reports this has been ongoing for about 3-4 days.? He denied chest pain, shortness breath, diarrhea, recent travel, recent illness.? Apparently he was tested for COVID-19 which was negative because he thought he may have had this.? [place] screen in the ER was positive, total bilirubin 4.0, AST 186, ALT 153, total creatinine kinase 2770, lipase 90.? Hepatitis screen negative, acetaminophen level less than 1.? Hemodynamically stable.? He received 2 L of IV fluids in the ER as well as Zofran, Pepcid and Maalox.? Will be admitted for further management and treatment of acute mononucleosis. Discharge diagnoses: Infectious mononucleosis ARELI Rhabdomyolysis Transaminitis Anemia Hospital course by problem: Infectious Mononucleosis. classic symptoms fever, rash, splenomegaly. mono screen positive/EBV Ab pending at the time of discharge. Treated symptomatically. Transaminitis: Likely secondary to mononucleosis. Abdominal ultrasound revealed echogenic liver probably representing fatty infiltration. Hepatitis screen for Hepatitis A, B and C were obtained and were negative. The patient was seen in consultation by Gastroenterology who found that the transaminitis was likely secondary to mono. Recommend outpatient follow-up with PCP, repeat liver function profile in 1 week. RAELI. Likely prerenal secondary to dehydration from vomiting. Treated with IV fluids and renal function improved. Creatinine improved from 1.36 on the day of admission .74 on the day of discharge. Mild rhabdomyolysis. Initial CPK was 2770, was treated with IVF and trended down to 1060. Anemia: H/H trended down from admission, likely in part related to hemoconcentration from dehydration on admission. No evidence of overt bleeding. Would recommend outpatient follow-up and repeat CBC in 1 week. Patient has new pcp arranged by CM, DR. Perez. Will be seen in office January. Will CC CBC/LFT results to office. Time Spent with Patient Time attestation: Total time spent providing and/or coordinating discharge services: Discharge coordination time: Greater than 30 minutes Quality: Safe Use of Opioids Does Pt have an Active Cancer Diagnosis on the Problem List?: No Quality: Stroke Does the patient have a stroke diagnosis?: No Physical Exam Vital Signs: Vital Signs: Last Vital Signs Temp 99.0 F 12/19/21 07:50 Pulse 94 12/19/21 07:50 Resp 17 12/19/21 07:50 BP 110/59 L 12/19/21 07:50 Pulse Ox 97 12/19/21 07:50 BMI result Body Mass Index 35.4 Const: General: cooperative, comfortable, no acute distress, alert and awake Nutritional Appearance: overweight Orientation/consciousness: patient oriented x3 Eyes: Pupils: Equal, round and reactive pupils present EOM: EOMs intact bilaterally Resp: Effort & Inspection: normal respiratory effort and able to speak in complete sentences Cardio: Rate: regular rate Heart sounds: S1 normal heart sound present and S2 normal heart sound present Neuro: General: patient oriented x3 Cranial nerves: Yes Equal, round and reactive pupils present Extrem: General: Yes no pedal edema DS: Data Data Completed and Pending Labs on day of discharge: Laboratory Results - last 24 hr 12/18/21 12/18/21 12/18/21 11:26 11:26 11:26 WBC 3.9 L RBC 4.28 L D Hgb 11.9 L D Hct 35.0 L D MCV 81.8 MCH 27.8 MCHC 34.0 RDW 13.6 Plt Count 154 L MPV 11.9 Immature Gran % (Auto) 0.3 Neut % (Auto) 44.9 L Lymph % (Auto) 40.9 H [place] % (Auto) 10.5 Eos % (Auto) 3.1 Baso % (Auto) 0.3 Lymph # (Auto) 1.6 [place] # (Auto) 0.4 Eos # (Auto) 0.1 Baso # (Auto) 0.0 Abs Immat Gran (auto) 0.01 Absolute Neuts (auto) 1.8 L Absolute Nucleated RBC 0.000 Nucleated RBC % (auto) 0.0 Smear Tech's Comments VERIFIED Sodium 142 Potassium 4.2 Chloride 114 H Carbon Dioxide 24 Anion Gap 8 L BUN 15 D Creatinine 0.83 Estim Creat Clear Calc 157.7 Estimated GFR > 60 Random Glucose 111 Calcium 8.0 L D Magnesium 2.6 Total Bilirubin 1.7 H Direct Bilirubin 1.0 H AST 117 H ALT 126 H Alkaline Phosphatase 84 Total Creatine Kinase 1060 H D Total Protein 5.8 L D Albumin 3.2 L D 12/19/21 12/19/21 08:31 08:31 WBC 4.1 L RBC 3.89 L Hgb 10.8 L Hct 32.1 L MCV 82.5 MCH 27.8 MCHC 33.6 RDW 13.6 Plt Count 176 MPV 12.0 Immature Gran % (Auto) Neut % (Auto) Lymph % (Auto) [place] % (Auto) Eos % (Auto) Baso % (Auto) Lymph # (Auto) [place] # (Auto) Eos # (Auto) Baso # (Auto) Abs Immat Gran (auto) Absolute Neuts (auto) Absolute Nucleated RBC 0.000 Nucleated RBC % (auto) 0.0 Smear Tech's Comments Sodium 141 Potassium 3.9 Chloride 113 H Carbon Dioxide 25 Anion Gap 7 L BUN 8 L Creatinine 0.74 Estim Creat Clear Calc 176.8 Estimated GFR > 60 Random Glucose 87 Calcium 8.2 L Magnesium Total Bilirubin Direct Bilirubin AST ALT Alkaline Phosphatase Total Creatine Kinase Total Protein Albumin Discharge Plan Discharge Patient Disposition: Home, Self-Care Discharge Diagnosis: Mononucleosis ARELI rhabdo transaminitis Anemia Referrals: Alex Perez MD [Physician] - 1 Week Discharge Orders: Discharge Order (Routine); Ordered 12/19/21 Ordered By: Karen Romero Activity on Discharge: As tolerated Stand Alone Forms: Patient Portal Discharge page Other Ambulatory Orders: Complete Blood Count no Diff (Routine) Timeframe: 1 Week Facility: [facility] - Location: Laboratory Ordered By: Karen Romero Liver Panel (Routine) Timeframe: 1 Week Facility: [facility] - Location: Laboratory Ordered By: Karen Romero Care Plan Goals: see below Health Concerns: Infectious mononucleosis Acute kidney injury Mild rhabdomyolysis Transaminitis Anemia Plan of Treatment: Call to schedule follow-up appointment with your primary care provider Repeat liver profile and CBC in 1 week Do not share food or drinks. The virus may be in your saliva for several months after you feel better. Wash your hands often with soap and water. Avoid contact sports for the next 3-4 weeks or sooner if cleared by PCP. Assessment: See discharge summary Patient Instructions: Mononucleosis (GEN)
--- NOTE | 2021-12-19 12:21 | MHC.CM.PN ---
PATIENT IS DC TODAY HE HAS A FOLLOW UP VISIT WITH NEW PROVIDER DR VALADEZ ON January @ 1430 HE WILL SEE CLARISSA Jameson PATIENT IS AWARE TO HAVE LABS DRAWN HERE ON CAMPUS IN ONE WEEK. PATIENT'S MOTHER WILL BE HERE AT 1400 TODAY TO PROVIDE TRANSPORT HOME. RN AWARE
[2021-12-20 01:06] LABS: EBV-NA IgG Index >600.00 U/mL; EBV-VCA IgM Ab <36.00 U/mL
[2021-12-20 21:17] LABS: Ceruloplasmin 38 mg/dL (18-36)
[2021-12-20 23:47] LABS: EBV Source Whole Blood
== END 2021-12-19 14:00 | disposition home or self-care (01) | DRG 723 ==
LOC: HO.ED 13:11 → HO.EDOVER 18:03 → HO.S3 20:37
PROVIDERS: Internal Medicine; Internal Medicine Gastroenterology; Physician Assistant; Admitting Provider Nurse Practitioner Acute Care; Emergency Provider Emergency Medicine; Visit Provider Physician Assistant Medical
DX: B27.89 Other infectious mononucleosis with other complication (principal); E87.0 Hyperosmolality and hypernatremia; N17.9 Acute kidney failure, unspecified; M62.82 Rhabdomyolysis; K77 Liver disorders in diseases classified elsewhere; E86.0 Dehydration; D64.9 Anemia, unspecified; Z20.822 Contact with and (suspected) exposure to COVID-19
CPT/HCPCS: 36415; 76700; 80048; 80076; 80143; 80307; 81001; 82390; 82550; 83690; 83735; 85007; 85025; 85027; 85610; 86308; 86664; 86665; 86704; 86706; 86709; 86803; 87340; 87502; 87635; 87651; 87798; 96361; 96374; 99285; J2405

== ENCOUNTER 2021-12-26 09:37 | Outpatient (REF) | payer OTHER, SELFPAY ==
[2021-12-26 10:18] LABS: Hematocrit 33.9 % (42.0-52.0); Hemoglobin 11.3 g/dl (14.0-18.0); Mean Corpuscular HGB Conc 33.3 g/dl (31.0-36.0); Mean Corpuscular Hemoglobin 27.6 pg (27.0-33.0); Mean Corpuscular Volume 82.9 fL (80.0-98.0); Mean Platelet Volume 10.7 fL (9.4-12.4); Platelet Count 209 X10*3/uL (160-400); Red Blood Count 4.09 X10*6/uL (4.60-5.80); Red Cell Distribution Width 13.6 % (11.0-16.0); White Blood Count 5.7 X10*3/uL (4.8-10.8)
[2021-12-26 10:44] LABS: Alanine Aminotransferase 46 U/L (0-40); Albumin Level 3.4 g/dL (3.5-5.0); Alkaline Phosphatase 119 U/L (39-117); Aspartate Amino Transferase 37 U/L (5-37); Bilirubin Direct 0.5 mg/dL (0.0-0.5); Bilirubin Total 0.8 mg/dL (0.0-1.0); Total Protein 7.1 g/dL (6.5-8.0)
== END 2021-12-26 09:38 | disposition home or self-care (01) ==
LOC: HO.LAB 09:37
PROVIDERS: Visit Provider Physician Assistant Medical
DX: D64.9 Anemia, unspecified (principal); B17.8 Other specified acute viral hepatitis; B27.99 Infectious mononucleosis, unspecified with other complication
CPT/HCPCS: 36415; 80076; 85027

== ENCOUNTER 2022-02-11 08:58 | Outpatient (REF) | payer OTHER, SELFPAY ==
[2022-02-11 09:13] LABS: MANUAL DIFF FLAG NO
[2022-02-11 09:32] LABS: Basophils Percent Auto 0.3 % (0-2); Eosinophils Absolute Auto 0.1 X10*3/uL (0.0-0.4); Eosinophils Percent Auto 1.5 % (0-4); Hematocrit 42.3 % (42.0-52.0); Hemoglobin 14.1 g/dl (14.0-18.0); Imm Gran Abs Auto 0.01 X10*3/uL (0.00-0.03); Imm Gran Pct Auto 0.2 % (0.0-0.4); Lymphocytes Absolute Auto 3.3 X10*3/uL (1.2-4.9); Lymphocytes Percent Auto 56.2 % (20-40); Mean Corpuscular HGB Conc 33.3 g/dl (31.0-36.0); Mean Corpuscular Hemoglobin 26.6 pg (27.0-33.0); Mean Corpuscular Volume 79.7 fL (80.0-98.0); Mean Platelet Volume 9.6 fL (9.4-12.4); Monocytes Absolute Auto 0.4 X10*3/uL (0.1-1.2); Monocytes Percent Auto 7.4 % (2-11); Neutrophils Percent Auto 34.4 % (45-73); Platelet Count 259 X10*3/uL (160-400); Red Blood Count 5.31 X10*6/uL (4.60-5.80); Red Cell Distribution Width 13.5 % (11.0-16.0); White Blood Count 5.9 X10*3/uL (4.8-10.8)
[2022-02-11 10:08] LABS: Alanine Aminotransferase 27 U/L (0-40); Albumin Level 4.2 g/dL (3.5-5.0); Alkaline Phosphatase 133 U/L (39-117); Anion Gap 12 (12-20); Aspartate Amino Transferase 19 U/L (5-37); Bilirubin Total 0.8 mg/dL (0.0-1.0); Blood Urea Nitrogen 11 mg/dL (9-16); Calcium 9.2 mg/dL (8.4-10.2); Carbon Dioxide 27 mmol/L (22-29); Chloride 106 mmol/L (96-108); Estimated Glomerular Filt Rate > 60; Glucose Random 104 mg/dL (60-115); Lipase 27 U/L (8-78); Potassium 4.7 mmol/L (3.3-5.1); Sodium 140 mmol/L (135-145); Total Protein 7.6 g/dL (6.5-8.0)
[2022-02-11 10:16] LABS: TSH reflex Free T4 1.02 uIU/mL (0.32-4.0); Vitamin D 25-OH Total 14.4 ng/mL (>30)
[2022-02-11 10:40] LABS: Folate 8.4 ng/mL (> or = 4.0); Vitamin B12 302 pg/mL (200-900)
== END 2022-02-11 08:59 | disposition home or self-care (01) ==
LOC: HO.LAB 08:58
PROVIDERS: PCP Nurse Practitioner Family; Visit Provider Nurse Practitioner Family
DX: M62.82 Rhabdomyolysis (principal); R74.01 Elevation of levels of liver transaminase levels; N17.9 Acute kidney failure, unspecified; Z13.29 Encounter for screening for other suspected endocrine disorder; Z76.89 Persons encountering health services in other specified circumstances
CPT/HCPCS: 36415; 80053; 82306; 82550; 82607; 82746; 83690; 84443; 85025

== ENCOUNTER 2022-04-01 10:29 | Outpatient (REF) | payer OTHER, SELFPAY ==
--- NOTE | ~2022-04-01 | US_ITS ---
EXAMINATION: US SOFT TISSUE NECK CLINICAL INFORMATION: Posterior right neck lump. COMPARISON: None TECHNIQUE: Ultrasound of the neck soft tissues is performed with high- frequency shearer-scale imaging and color Doppler. FINDINGS: Targeted ultrasound images were obtained by the retail parts pro of the area of concern as indicated by the patient in the posterior right neck and demonstrated reniform masses characteristic of lymph nodes measuring 1.2 x 0.7 x 1.4 cm, 1.4 x 0.8 x 1.2 cm, and 1.1 x 0.6 x 0.9 cm. Radiologist was not in attendance. Images were later provided for interpretation. US/US soft tiss head and/or neck IMPRESSION: Three (3) lymph nodes in the area of concern as indicated by the patient in the right posterior lateral neck. Decisions regarding further management and follow-up should be based on the clinical assessment.
== END 2022-04-01 10:30 | disposition home or self-care (01) ==
LOC: HO.HMGCX 10:29
PROVIDERS: Visit Provider Nurse Practitioner Family
DX: R22.1 Localized swelling, mass and lump, neck (principal)
CPT/HCPCS: 76536

== ENCOUNTER 2023-09-21 22:49 | Emergency (ER) | payer BC, SELFPAY ==
[2023-09-21 23:24] VITALS: BP 140/80; PULSE 84; RESP 14; TEMP 36.5; O2SAT 96; BMI 35.0
--- NOTE | 2023-09-22 01:40 | ED.SKABFB ---
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 No fever, no chills, no discharge. Related Data Previous Rx's Medication Instructions Recorded amoxicillin 500 mg-potassium 1 tab PO BID 7 days #14 tabs 10/29/22 clavulanate 125 mg tablet fluticasone propionate 50 1 spray intranasal BID #16 grams 10/29/22 mcg/actuation nasal spray,suspension doxycycline hyclate 100 mg capsule 100 mg PO BID #14 caps 09/22/23 prednisone 10 mg tablet 10 mg PO BID #10 tabs 09/22/23 Allergies Allergy/AdvReac Type Severity Reaction Status Date / Time No Known Allergies Allergy Verified 09/21/23 23:24 Review of Systems Review of Systems: All other systems are reviewed and are negative Constitutional: Reports as per HPI and Reports no additional constitutional complaints Eyes: Reports as per HPI and Reports no additional eye complaints Reports system reviewed and no additional complaints, except as documented Cardiovascular: Reports as per HPI and Reports no additional cardiovascular complaints Respiratory: Reports as per HPI and Reports no additional respiratory complaints Gastrointestinal: Reports as per HPI and Reports no additional gastrointestinal complaints Genitourinary: Reports no additional female genitourinary complaints Musculoskeletal: Reports no additional musculoskeletal complaints Skin/Breast: Reports system reviewed and no additional complaints, except as docu Psychiatric: Reports no additional psychiatric complaints Endocrine: Reports no additional endocrine complaints Hematologic/Lymphatic: Reports no additional hematologic/lymphatic complaints Allergic/Immunologic: Reports no additional allergic/immunologic complaints Reports system reviewed and no additional complaints, except as documented and Reports Abnormal speech present PMFSH Past Medical History Medical History Encounter to establish care Surgical History No pertinent past surgical history Family History Family History Father No problems noted. Mother No problems noted. Social History Social History Household Members: Family Housing: House Do you presently have visiting nurse or other home services: No Alcohol intake: current Alcohol intake frequency: holidays/special occasions only Patient Tobacco Use Status: Never used Tobacco e-Cigarette/Vaping Use: Never Used Second Hand Smoke Exposure: No Advance Directives: No Advance Directives Information Provided: Yes service: No Current occupational status: employed Current occupational exposures/hazards: No Cognitive needs: No Hearing needs: No Vision needs: No Physical Exam Vital Signs: Vital Signs: Last Vital Signs Temp 98.4 F 09/22/23 01:52 Pulse 87 09/22/23 01:52 Resp 18 09/22/23 01:52 BP 120/67 09/22/23 01:52 Pulse Ox 99 09/22/23 01:52 O2 Del Method Room Air 09/22/23 01:52 BMI result Body Mass Index 35.0 Vital signs have been reviewed and appear to be correct. Blood pressure elevated. Heart rate normal. Respiratory rate normal. Temperature normal. Oxygen saturation normal. Appearance: Alert. Oriented X3. No acute distress. Head: Normal external exam. Normocephalic. Atraumatic. No Gonzalez signs noted. No raccoon eyes noted Eyes: PERRLA. EOMI. Conjunctiva and sclera normal. Eyelids normal. ENT: TM's Normal. Pharynx normal. Uvula midline. Moist mucous membranes. No trismus noted. No drooling noted. No muffled voice noted. Neck: Normal inspection. Neck supple. FROM. No adenopathy. Thyroid Normal. No meningeal signs. No neck mass noted. CVS: Normal heart rate and rhythm. Heart sound normal. No murmurs noted. Pulses normal throughout. Respiratory: No respiratory distress. Painless inspiration. Breath sounds normal. No wheezes/rales/rhonchi noted. Chest nontender. No accessory muscle usage noted or decreased air movement noted. Abdomen: Soft and nontender. Bowel sounds normal in all 4 quadrants. No distention noted. No organomegaly noted. No visible injury noted. Back: No CVA tenderness. Full range of motion noted. Skin: Area of dry skin to both palms of the hands with cracks on the skin, area of inactive eczema on the right side at the base of the neck. No vesicular lesions, no fluctuation, no discharge. Extremities: No lower extremity edema. Extremities exhibit normal range of motion. Extremities nontender. Neuro: Oriented X 3. Cranial nerve exam: II-XII are grossly intact No motor deficit. No sensory deficit. Reflexes normal. Course Reevaluation(s) Reevaluation #1: Eczema with infection will cover with doxycycline and short course of prednisone and patient to follow-up with a wiener packer as an outpatient. Time: 02:07 Medical Decision Making Differential Diagnosis Differential Diagnoses: The differential diagnosis associated with the presentation includes (Eczema, atopic dermatitis, superimposed infection.) Admission/Observation Consideration of admission/observation: Escalation of care including admission/observation considered Discharge Plan Discharge Clinical Impression: Eczema Patient Disposition: Home, Self-Care Instructions: Eczema (ED) Prescriptions: New prednisone 10 mg tablet 10 mg PO BID Qty: 10 0RF doxycycline hyclate 100 mg capsule 100 mg PO BID Qty: 14 0RF No Action fluticasone propionate 50 mcg/actuation spray,suspension 1 spray intranasal BID Qty: 16 0RF Rx Instructions: administer into each nostril amoxicillin-pot clavulanate 500-125 mg tablet 1 tab PO BID 7 Days Qty: 14 0RF Referrals: [facility] [Primary Care Provider] -
[2023-09-22 01:52] VITALS: BP 120/67; PULSE 87; RESP 18; TEMP 36.9; O2SAT 99
== END 2023-09-22 02:15 | disposition home or self-care (01) ==
PROVIDERS: Emergency Provider Emergency Medicine
DX: L30.9 Dermatitis, unspecified (principal)
CPT/HCPCS: 99283; 99284

== ENCOUNTER 2024-04-16 22:57 | Emergency (ER) | payer BC, SELFPAY ==
--- NOTE | ~2024-04-16 | XR_ITS ---
EXAMINATION: XR CHEST CLINICAL INFORMATION: Cough, pneumonia COMPARISON: None available. TECHNIQUE: 2 views of the chest were obtained. FINDINGS: Lung volumes are symmetric. No focal consolidation is seen. No evidence of pneumothorax, pleural effusion, or pulmonary edema. Central peribronchial thickening is noted. The cardiomediastinal contour is unremarkable. No acute osseous findings are seen. XR/XR chest 2V IMPRESSION: No focal consolidation. Central peribronchial thickening suggesting airways disease/viral pneumonia. Electronically signed by: Spencer Waldrop MD 04/17/2024 04:09 AM EDT RP
[2024-04-16 23:09] VITALS: BP 100/65; PULSE 103; RESP 16; TEMP 37.3; O2SAT 98; BMI 29.3
[2024-04-17 00:45] LABS: IDNOW Serial# 08D9AD1C; Influenza A Negative (Negative); Influenza B2 Negative (Negative)
[2024-04-17 00:46] LABS: COVID-19 Test Negative (Negative); IDNOW Serial# 152EDE1D
--- NOTE | 2024-04-17 01:34 | ED.URI ---
HPI - URI/Sore Throat General Chief Complaint: Fever Stated Complaint: cough,fatigue Time Seen by Provider: 04/17/24 01:06 Source: patient Mode of arrival: ambulatory Limitations: no limitations History of Present Illness ED Provider: toni DONNELLY Narrative: Patient otherwise healthy been having cough for last 2 weeks was seen at urgent care last week and prescribed amoxicillin for otitis media comes here as patient still having low-grade fever with cough with mucopurulent phlegm no wheezing no other family member sick Related Data Previous Rx's ?Medication ?Instructions ?Recorded amoxicillin 500 mg-potassium 1 tab PO BID 7 days #14 tabs 10/29/22 clavulanate 125 mg tablet fluticasone propionate 50 1 spray intranasal BID #16 grams 10/29/22 mcg/actuation nasal spray,suspension doxycycline hyclate 100 mg capsule 100 mg PO BID #14 caps 09/22/23 prednisone 10 mg tablet 10 mg PO BID #10 tabs 09/22/23 benzonatate 200 mg capsule 200 mg PO TID PRN cough #20 caps 04/17/24 cefuroxime axetil 500 mg tablet 500 mg PO BID 7 days #14 tabs 04/17/24 Allergies Allergy/AdvReac Type Severity Reaction Status Date / Time No Known Allergies Allergy Verified 04/16/24 23:12 Review of Systems Review of Systems: Yes all other systems are reviewed and are negative PMFSH Past Medical History Medical History Encounter to establish care Surgical History No pertinent past surgical history Family History Family History Father No problems noted. Mother No problems noted. Social History Social History Household Members: Family Housing: House Do you presently have visiting nurse or other home services: No Alcohol intake: current Alcohol intake frequency: holidays/special occasions only Patient Tobacco Use Status: Never used Tobacco e-Cigarette/Vaping Use: Never Used Second Hand Smoke Exposure: No Advance Directives: No Advance Directives Information Provided: No Do you have a plan to hurt others: No Plan service: No Current occupational status: employed Current occupational exposures/hazards: No Cognitive needs: No Hearing needs: No Vision needs: No Physical Exam Vital Signs: Vital Signs: Last Vital Signs Temp 98.6 F 04/17/24 03:54 Pulse 83 04/17/24 03:54 Resp 16 04/17/24 03:54 BP 111/63 04/17/24 03:54 Pulse Ox 98 04/17/24 03:54 O2 Del Method Room Air 04/17/24 03:54 BMI result Body Mass Index 29.3 Appearance: Alert. Oriented X3. No acute distress. ENT: Pharynx normal. Oral Mucosa moist tympanic membrane intact no erythema Neck: Normal inspection. Neck supple. CVS: Normal heart rate and rhythm. Pulses normal. Respiratory: No respiratory distress. Equal air entry bilateral, no wheezing/rales/rhonchi Abdomen: Soft and nontender. Bowel sounds are present, no mass palpable, no CVA tenderness Skin: Skin warm and dry. Normal skin color. Normal skin turgor. Extremities: No lower extremity edema. Neuro: Oriented X 3. Medications Administered Discontinued Medications Generic Name Dose Route Start Last Admin Trade Name Freq PRN Reason Stop Dose Admin Cefuroxime Axetil 500 mg 04/17/24 03:40 04/17/24 03:51 Cefuroxime Axetil 500 Mg Tablet PO 04/17/24 03:41 500 mg ONCE ONE Administration Medical Decision Making Medical Decision Making [facility] Narrative: Chest x-ray without any significant infiltrate patient with chronic anemia advised to follow with PCP Differential Diagnosis Differential Diagnoses: The differential diagnosis associated with the presentation includes Pneumonia/bronchitis Lab Data [facility] Lab Attestation statement: I reviewed the patient's lab results. 04/17/24 02:19 04/17/24 02:19 Labs: Lab Results 04/16/24 04/17/24 Range/Units 23:42 02:19 WBC 3.3 L (4.8-10.8) X10*3/uL RBC 3.96 L D (4.60-5.80) X10*6/uL Hgb 10.9 L D (14.0-18.0) g/dl Hct 31.1 L D (42.0-52.0) % MCV 78.5 L (80.0-98.0) fL MCH 27.5 (27.0-33.0) pg MCHC 35.0 (31.0-36.0) g/dl RDW 13.1 (11.0-16.0) % Plt Count 263 (160-400) X10*3/uL MPV 11.0 (9.4-12.4) fL Immature Gran % (Auto) 0.6 H (0.0-0.4) % Neut % (Auto) 62.1 (45-73) % Lymph % (Auto) 24.7 (20-40) % [place] % (Auto) 10.2 (2-11) % Eos % (Auto) 2.4 (0-4) % Baso % (Auto) 0.0 (0-2) % Lymph # (Auto) 0.8 L (1.2-4.9) X10*3/uL [place] # (Auto) 0.3 (0.1-1.2) X10*3/uL Eos # (Auto) 0.1 (0.0-0.4) X10*3/uL Baso # (Auto) 0.0 (0.0-0.2) X10*3/uL Abs Immat Gran (auto) 0.02 (0.00-0.03) X10*3/uL Absolute Neuts (auto) 2.1 (2.0-8.3) x10*3/uL Absolute Nucleated RBC 0.000 (0.0-0.012) X10*3/uL Nucleated RBC % (auto) 0.0 (0.0-0.2) /100WBC Sodium 143 (135-145) mmol/L Potassium 3.8 (3.3-5.1) mmol/L Chloride 110 H (96-108) mmol/L Carbon Dioxide 22 (22-29) mmol/L Anion Gap 15 (12-20) BUN 18 H (9-16) mg/dL Creatinine 0.97 (0.5-1.4) mg/dL Estim Creat Clear Calc 120.7 Estimated GFR > 60 Random Glucose 87 (60-115) mg/dL Calcium 9.2 (8.4-10.2) mg/dL Total Bilirubin 0.9 (0.0-1.0) mg/dL AST 22 (5-37) U/L ALT 11 (0-40) U/L Alkaline Phosphatase 78 (39-117) U/L Total Protein 8.6 H (6.5-8.0) g/dL Albumin 3.9 (3.5-5.0) g/dL COVID-19 (ZAC) Negative (Negative) COVID-19 Clin Com See Note Influenza Type A (PHIL) Negative (Negative) Influenza Type B (PHIL) Negative (Negative) Influenza A & B Note See Note Independent Interpretation I performed an independent interpretation of an: Plain X-Ray Radiology Impression Discussion of test interpretation with radiology: I have reviewed the radiologist's reading. Radiologist Impression: [address] [address] XRay Report Signed Patient: Dylan Hill MR#: [id number] : 1995 Acct:[id number] Age/Sex: 28 / M ADM Date: 04/17/24 Loc: .ED Attending Dr: Ordering Physician: Derek Hope MD Date of Service: 04/17/24 Procedure(s): XR chest 2V Accession Number(s): [id number] cc: [facility]; Derek Hope MD~ EXAMINATION: XR CHEST CLINICAL INFORMATION: Cough, pneumonia COMPARISON: None available. TECHNIQUE: 2 views of the chest were obtained. FINDINGS: Lung volumes are symmetric. No focal consolidation is seen. No evidence of pneumothorax, pleural effusion, or pulmonary edema. Central peribronchial thickening is noted. The cardiomediastinal contour is unremarkable. No acute osseous findings are seen. XR/XR chest 2V IMPRESSION: No focal consolidation. Central peribronchial thickening suggesting airways disease/viral pneumonia. Electronically signed by: Spencer Waldrop MD 04/17/2024 04:09 AM EDT Discharge Plan Discharge Clinical Impression: Acute bronchitis due to infection Patient Disposition: Home, Self-Care Instructions: Acute Bronchitis (ED) Additional Instructions: Take antibiotic as prescribed Cough drops as prescribed Follow up with your PCP Prescriptions: New benzonatate 200 mg capsule 200 mg PO TID PRN (Reason: cough) Qty: 20 0RF cefuroxime axetil 500 mg tablet 500 mg PO BID 7 Days Qty: 14 0RF No Action prednisone 10 mg tablet 10 mg PO BID Qty: 10 0RF doxycycline hyclate 100 mg capsule 100 mg PO BID Qty: 14 0RF fluticasone propionate 50 mcg/actuation spray,suspension 1 spray intranasal BID Qty: 16 0RF Rx Instructions: administer into each nostril amoxicillin-pot clavulanate 500-125 mg tablet 1 tab PO BID 7 Days Qty: 14 0RF Interventions: ED Discharge Assessment Last Done: 04/17/24 03:54 Discharge Date/Time: 04/17/24 03:54 Print Language: Welsh
[2024-04-17 02:08] VITALS: BP 99/58; PULSE 88; RESP 18; TEMP 37; O2SAT 97
[2024-04-17 02:23] LABS: MANUAL DIFF FLAG NO
[2024-04-17 02:24] LABS: Eosinophils Absolute Auto 0.1 X10*3/uL (0.0-0.4); Eosinophils Percent Auto 2.4 % (0-4); Hematocrit 31.1 % (42.0-52.0); Hemoglobin 10.9 g/dl (14.0-18.0); Imm Gran Abs Auto 0.02 X10*3/uL (0.00-0.03); Imm Gran Pct Auto 0.6 % (0.0-0.4); Lymphocytes Absolute Auto 0.8 X10*3/uL (1.2-4.9); Lymphocytes Percent Auto 24.7 % (20-40); Mean Corpuscular Hemoglobin 27.5 pg (27.0-33.0); Mean Corpuscular Volume 78.5 fL (80.0-98.0); Monocytes Absolute Auto 0.3 X10*3/uL (0.1-1.2); Monocytes Percent Auto 10.2 % (2-11); Neutrophils Absolute Auto 2.1 x10*3/uL (2.0-8.3); Neutrophils Percent Auto 62.1 % (45-73); Platelet Count 263 X10*3/uL (160-400); Red Blood Count 3.96 X10*6/uL (4.60-5.80); Red Cell Distribution Width 13.1 % (11.0-16.0); White Blood Count 3.3 X10*3/uL (4.8-10.8)
[2024-04-17 02:43] LABS: Alanine Aminotransferase 11 U/L (0-40); Albumin Level 3.9 g/dL (3.5-5.0); Alkaline Phosphatase 78 U/L (39-117); Anion Gap 15 (12-20); Aspartate Amino Transferase 22 U/L (5-37); Bilirubin Total 0.9 mg/dL (0.0-1.0); Blood Urea Nitrogen 18 mg/dL (9-16); Calcium 9.2 mg/dL (8.4-10.2); Carbon Dioxide 22 mmol/L (22-29); Chloride 110 mmol/L (96-108); Creatinine Clr Calc Pharmacy 120.7; Estimated Glomerular Filt Rate > 60; Glucose Random 87 mg/dL (60-115); Potassium 3.8 mmol/L (3.3-5.1); Sodium 143 mmol/L (135-145); Total Protein 8.6 g/dL (6.5-8.0)
[2024-04-17] MEDS: cefuroxime axetiL 500 MG TABLET PO (03:51)
[2024-04-17 03:53] VITALS: BP 111/63; PULSE 83; RESP 16; TEMP 37; O2SAT 97
[2024-04-17 03:54] VITALS: BP 111/63; PULSE 83; RESP 16; TEMP 37; O2SAT 98
== END 2024-04-17 03:54 | disposition home or self-care (01) ==
PROVIDERS: Emergency Provider Internal Medicine
DX: J20.8 Acute bronchitis due to other specified organisms (principal); R50.9 Fever, unspecified; R05.9 Cough, unspecified; R53.83 Other fatigue; Z11.52 Encounter for screening for COVID-19; Z79.899 Other long term (current) drug therapy
CPT/HCPCS: 36415; 71046; 80053; 85025; 87502; 87635; 99283

== ENCOUNTER 2024-04-26 13:50 | Outpatient (AMB) | payer BC, SELFPAY ==
--- NOTE | 2024-04-26 13:51 | MHC.PC.OV ---
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 He was admitted at [facility] on 04/17/24 for Bronchitis and was discharged home the same day on Antibiotics. Today reports feeling much better and continues to take Abx as prescribed. Denies fevers, chills, nausea or vomiting. Reports good appetite and hydrates well with plenty of fluids. [facility] Medical History Encounter to establish care Surgical History No pertinent past surgical history Family History Father No problems noted. Mother No problems noted. Social History Household Members: Family Housing: House Do you presently have visiting nurse or other home services: No Alcohol intake: current Alcohol intake frequency: holidays/special occasions only Patient Tobacco Use Status: Never used Tobacco e-Cigarette/Vaping Use: Never Used Second Hand Smoke Exposure: No service: No Current occupational status: employed Current occupational exposures/hazards: No Cognitive needs: No Hearing needs: No Vision needs: No Questionnaire PHQ-9 Over the last 2 weeks, how often have you been bothered by any of the following problems? 1. Little interest or pleasure in doing things: not at all 2. Feeling down, depressed, or hopeless: not at all 3. Trouble falling or staying asleep, or sleeping too much: not at all 4. Feeling tired or having little energy: not at all 5. Poor appetite or overeating: not at all 6. Feeling bad about yourself - or that you are a failure or have let yourself or your family down: not at all 7. Trouble concentrating on things, such as reading the newspaper or watching television: not at all 8. Moving or speaking so slowly that other people could have noticed. Or the opposite - being so fidgety or restless that you have been moving around a lot more than usual: not at all 9. Thoughts that you would be better off or of hurting yourself in some way: not at all Total score: 0 Depression Screening Interpretation: Negative Depression Screening Done: Yes Source: Developed by Drs. Otis Reddy, Ny Saldaña, Fernando Hoover and colleagues, with an educational estefany from [employer]. Thrive Questionnaire Date Thrive assessed: 04/26/24 I am a: Patient What is your living situation today?: I have a steady place to live Within the past 12 months, did the food you bought not last and you didn't have the money to get more?: Never true Within the past 12 months, did you worry whether your food would run out before you got money to buy more?: Never true Do you have trouble paying for medicines?: No Do you have trouble getting transportation to medical appointments?: No Do you have trouble paying your heating and electricity bill?: No Do you have trouble taking care of your child, family member or friend?: No Do you have trouble with day-to-day activities such as bathing, preparing meals, shopping, managing finances, etc.?: No Are you currently unemployed and looking for a job?: No Are you interested in more education?: No Currently or been in a relationship where the following occur: No concerns reported THRIVE Score: 0 AUDIT C Alcohol Use Questionnaire (AUDIT-C) 1. How often do you have a drink containing alcohol?: Never Total Score: 0 PRAFUL-7 AMB Questionnaire PRAFUL-7 Date PRAFUL - 7 assessed: 04/26/24 Feeling nervous, anxious, or on edge: 0 = Not at all Not being able to stop or control worryin = Not at all Worrying too much about different things: 0 = Not at all Trouble relaxin = Not at all Being so restless that it is hard to sit still: 0 = Not at all Becoming easily annoyed or irritable: 0 = Not at all Feeling afraid as if something awful might happen: 0 = Not at all Total PRAFUL-7 score (0-4 normal; 5-9 mild; 10-14 moderate; 15-21 severe): 0 Source: Developed by Drs. Otis Reddy, Ny Saldaña, Fernando Hoover and colleagues, with an educational estefany from [employer]. Review of Systems Const All systems reviewed & are unremarkable except as noted in HPI and below Physical exam (Primary Care) Vital Signs: Last Vital Signs Pulse 81 04/26/24 13:52 BP 136/62 04/26/24 13:52 Pulse Ox 97 04/26/24 13:52 Oxygen Delivery Method Room Air 04/26/24 13:52 BMI result Body Mass Index 29.4 Tobacco/Smoking Status: Tobacco use Status Tobacco use date assessed 04/26/24 04/26/24 14:00 Patient Tobacco Use Status Never used Tobacco 04/26/24 14:00 e-Cigarette/Vaping Use Never Used 04/26/24 14:00 PHQ-9: PHQ-9 Score PHQ-9: Total score 0 04/26/24 14:00 Depression Screening Interpretation: Negative Thrive Assessment: Date of Thrive Assessment Date Thrive assessed 04/26/24 04/26/24 14:00 Currently or been in a relationship where the following occur: No concerns reported Const General: cooperative and no acute distress Nutritional Appearance: obese Orientation/consciousness: patient oriented x3 HENMT Head: Yes normocephalic Ears: external ears normal and TM's normal bilaterally Face and sinus: Yes sinuses nontender Mouth: moist mucous membranes Throat: Yes posterior oropharynx normal Eyes Pupils: Equal, round and reactive pupils present Neck Neck: Yes no lymphadenopathy Resp Effort & Inspection: normal respiratory effort and able to speak in complete sentences Auscultation: clear to auscultation bilaterally, no crackles, no rales, no rhonchi and no wheezes Cardio Heart sounds: S1 normal heart sound present and S2 normal heart sound present Neuro General: patient oriented x3 Cranial nerves: Yes Equal, round and reactive pupils present Assessment and Plan Assessment & Plan (1) Bronchitis: Code(s): J40 - Bronchitis, not specified as acute or chronic Plan: Stable, continue taking Abx as prescribed. Rest and hydrate well. RTC if not better. Coding Level of Care Code Est Pt Level 4 (02923) Diagnoses Bronchitis J40 Time Spent (min) 20 Comment Spent reviewing hospital notes and patient education.
[2024-04-26 13:52] VITALS: BP 136/62; PULSE 81; O2SAT 97; BMI 29.4
== END 2024-04-26 14:15 | disposition home or self-care (01) ==
PROVIDERS: Visit Provider Nurse Practitioner Family
DX: J40 Bronchitis, not specified as acute or chronic (principal)

== ENCOUNTER → 2024-04-26 13:50 | Outpatient (BNVA) | payer BC, SELFPAY | PROVIDERS: Visit Provider Nurse Practitioner Family | DX: J40 Bronchitis, not specified as acute or chronic (principal) | CPT/HCPCS: 96127 ==

== ENCOUNTER 2024-04-28 20:32 | Inpatient (IN) | payer BC, SELFPAY ==
[2024-04-28] VITALS (14 sets, daily range): BP systolic 73–115; BP diastolic 32–69; PULSE 107–130; RESP 15–24; TEMP 37.4–39.2; O2SAT 97–100; BMI 28.8
--- NOTE | ~2024-04-28 | CT_ITS ---
EXAMINATION: CT CHEST, ABDOMEN AND PELVIS WITH CONTRAST CLINICAL INFORMATION: Cough. Recurrent fevers. COMPARISON: None available. TECHNIQUE: Multidetector volumetric CT imaging of the chest, abdomen and pelvis was obtained after the administration of 80 mL of Omnipaque 350 intravenous contrast without immediate adverse reactions. Axial MIP volume rendering provided. Sagittal and coronal reformatted images were obtained. This CT examination was performed using dose optimization techniques as appropriate, variously including the following: *Automated exposure control *Adjustment of mA and/or kV according to patient size (this includes techniques or standardized protocols for targeted exams where dose is matched to indication/reason for exam; i.e. extremities or head) *Use of iterative reconstruction technique DLP: 1007 mGy-cm FINDINGS: HEALTH CARE SANITARY TECHNICIAN: Unremarkable. LUNGS: There are small areas of nodular infiltrative change right upper lobe as well as bilateral superior segment lower lobes. The lungs are otherwise clear. MEDIASTINUM: The heart is normal in size. There are multiple nonspecific mediastinal and hilar lymph nodes measuring up to 1.3 cm. PLEURA: There is no pleural effusion. No pleural mass or thickening. AXILLA: There are enlarged axillary lymph nodes measuring up to 2.8 cm on the left. LIVER, GALLBLADDER, AND BILIARY TREE: The liver is normal in size, shape, and attenuation. No focal hepatic lesion or biliary ductal dilatation is present. The gallbladder is unremarkable with no evidence of radiopaque gallstones, gallbladder wall thickening, or obvious pericholecystic inflammatory changes. PANCREAS: Unremarkable SPLEEN: Unremarkable ADRENAL GLANDS: Unremarkable KIDNEYS AND URETERS: The kidneys are normal in size, shape, and attenuation. No hydronephrosis, hydroureter, or calculi seen. No perinephric stranding. BLADDER: Unremarkable GASTROINTESTINAL TRACT: There are prominent fluid-filled small bowel segments and scattered large bowel. The appendix is borderline in size measuring up to 7 mm. There is no significant periappendiceal infiltration. ABDOMINAL WALL: There are enlarged groin lymph nodes measuring up to 3.4 cm. LYMPH NODES: There is nonspecific retroperitoneal lymph nodes measuring up to 2.2 cm. VASCULAR: Unremarkable PELVIC VISCERA: Unremarkable. OSSEOUS STRUCTURES: Unremarkable CT/CT abdomen pelvis w IV con IMPRESSION: 1. Small areas of nodular infiltrative change in the right upper lobe as well as bilateral superior segment lower lobes. This could be postinfectious versus early infectious. Correlation needed. 2. Nonspecific mediastinal, hilar, axillary, retroperitoneal, and groin lymphadenopathy. 3. Prominent fluid-filled segments of small bowel and scattered large bowel. 4. The appendix is borderline in size measuring up to 7 mm. There is no significant periappendiceal infiltration. Fleischner guidelines were followed. Electronically signed by: Michel Dawkins MD 04/29/2024 12:32 AM EDT
--- NOTE | ~2024-04-28 | CT_ITS ---
EXAMINATION: CT CHEST, ABDOMEN AND PELVIS WITH CONTRAST CLINICAL INFORMATION: Cough. Recurrent fevers. COMPARISON: None available. TECHNIQUE: Multidetector volumetric CT imaging of the chest, abdomen and pelvis was obtained after the administration of 80 mL of Omnipaque 350 intravenous contrast without immediate adverse reactions. Axial MIP volume rendering provided. Sagittal and coronal reformatted images were obtained. This CT examination was performed using dose optimization techniques as appropriate, variously including the following: *Automated exposure control *Adjustment of mA and/or kV according to patient size (this includes techniques or standardized protocols for targeted exams where dose is matched to indication/reason for exam; i.e. extremities or head) *Use of iterative reconstruction technique DLP: 1007 mGy-cm FINDINGS: RAIL TRACK MAINTAINER: Unremarkable. LUNGS: There are small areas of nodular infiltrative change right upper lobe as well as bilateral superior segment lower lobes. The lungs are otherwise clear. MEDIASTINUM: The heart is normal in size. There are multiple nonspecific mediastinal and hilar lymph nodes measuring up to 1.3 cm. PLEURA: There is no pleural effusion. No pleural mass or thickening. AXILLA: There are enlarged axillary lymph nodes measuring up to 2.8 cm on the left. LIVER, GALLBLADDER, AND BILIARY TREE: The liver is normal in size, shape, and attenuation. No focal hepatic lesion or biliary ductal dilatation is present. The gallbladder is unremarkable with no evidence of radiopaque gallstones, gallbladder wall thickening, or obvious pericholecystic inflammatory changes. PANCREAS: Unremarkable SPLEEN: Unremarkable ADRENAL GLANDS: Unremarkable KIDNEYS AND URETERS: The kidneys are normal in size, shape, and attenuation. No hydronephrosis, hydroureter, or calculi seen. No perinephric stranding. BLADDER: Unremarkable GASTROINTESTINAL TRACT: There are prominent fluid-filled small bowel segments and scattered large bowel. The appendix is borderline in size measuring up to 7 mm. There is no significant periappendiceal infiltration. ABDOMINAL WALL: There are enlarged groin lymph nodes measuring up to 3.4 cm. LYMPH NODES: There is nonspecific retroperitoneal lymph nodes measuring up to 2.2 cm. VASCULAR: Unremarkable PELVIC VISCERA: Unremarkable. OSSEOUS STRUCTURES: Unremarkable CT/CT chest w IV con IMPRESSION: 1. Small areas of nodular infiltrative change in the right upper lobe as well as bilateral superior segment lower lobes. This could be postinfectious versus early infectious. Correlation needed. 2. Nonspecific mediastinal, hilar, axillary, retroperitoneal, and groin lymphadenopathy. 3. Prominent fluid-filled segments of small bowel and scattered large bowel. 4. The appendix is borderline in size measuring up to 7 mm. There is no significant periappendiceal infiltration. Fleischner guidelines were followed. Electronically signed by: Michel Dawkins MD 04/29/2024 12:32 AM EDT
--- NOTE | ~2024-04-28 | XR_ITS ---
EXAMINATION: XR CHEST CLINICAL INFORMATION: Cough. COMPARISON: None available. TECHNIQUE: Frontal view of the chest was obtained. FINDINGS: No significant abnormality is noted involving the heart, lungs, mediastinum, bony thorax or soft tissues. XR/XR chest 1V IMPRESSION: Unremarkable examination. Electronically signed by: Michel Dawkins MD 04/28/2024 11:34 PM EDT RP
--- NOTE | 2024-04-28 20:38 | ED_ITS ---
HPI - General Adult General Chief complaint: Fever Stated complaint: flu like symptoms/feels like he has mono Time Seen by Provider: 04/28/24 20:58 Source: patient, family and old records reviewed Mode of arrival: ambulatory Limitations: no limitations History of Present Illness ED Provider: NISHANT DONNELLY narrative: 28 yo male with PMH of eczema who has 1 month of intermittent fatigue fevers has been on amoxicillin and now is on ceftin as of 04/17 for bronchitis but he is not feeling much better. He denies any hx of known immunocompromised but he does have sex with men. He uses condoms has never had HIV test before. He has no indwelling hardware and does not have IVDA. He denies night sweats but has lost weight. He notes he just isn't feeling better. He isn't drinking much fluids, has loose stools, he has body aches and a cough that will not go away. He came back as he still feels terrible. No known tick bites, denies issues or rectal pain/discomfort. Denies lesions anywhere or rash other than typical eczema. MD complaint: fevers, fatigue Onset (ago): month(s) (1) Radiation: non-radiation Severity: moderate Quality: aching Pain Consistency: constant Relieving factors: none Exacerbating factors: movement Associated symptoms: cough, fever/chills, headaches, loss of appetite, malaise, nausea/vomiting and weakness Treatments prior to arrival: other (tylenol) Related Data Previous Rx's ?Medication ?Instructions ?Recorded cefuroxime axetil 500 mg tablet 500 mg PO BID 7 days #14 tabs 04/17/24 Allergies Allergy/AdvReac Type Severity Reaction Status Date / Time No Known Allergies Allergy Verified 04/28/24 20:38 Review of Systems 2 Review of Systems: Constitutional : pos Fever, pos Chills, pos Fatigue ENT/Mouth : No sore throat, No Rhinorrhea Eyes: No Eye Pain, No Swelling, No Redness Cardiovascular : No Chest Pain, No SOB, No Dyspnea on Exertion Respiratory : pos Cough, No Sputum Gastrointestinal : pos Nausea, No Vomiting, pos Diarrhea, No abdominal Pain Genitourinary : No Dysuria, No Urinary Frequency, No Hematuria, Musculoskeletal : No joint pain, pos Myalgias, No Joint Swelling Skin : No Skin Lesions, No rash Neuro : pos Weakness, No Numbness, No Dizziness, positive Headache Psych : No Anxiety/Panic, No Depression All other systems reviewed and are negative [facility] Past Medical History Attestation statement: The following information was validated with the patient. Source: old records reviewed Medical History Encounter to establish care Surgical History No pertinent past surgical history Family History Family History Father No problems noted. Mother No problems noted. Social History Social History Household Members: Family Household Members Other:: Mother, brother Housing: House Do you presently have visiting nurse or other home services: No Alcohol intake: never Patient Tobacco Use Status: Never used Tobacco Smoked in Last 30 Days: No e-Cigarette/Vaping Use: Never Used Second Hand Smoke Exposure: No Use of substances other than those prescribed or required for medical reasons: No Currently Displaying Signs/Symptoms of Drug Intoxication Withdrawal: No Have you been hit, kicked, punched, or otherwise hurt by someone within the past year? If so, by whom?: No Do you feel safe in your current relationship?: No Current Relationship Is there a partner from a previous relationship who is making you feel unsafe now?: No Are you made to feel afraid or neglected: No [facility] Practices: None per pt Advance Directives: No Advance Directives Information Provided: No Do you have a plan to hurt others: No Plan Recently lost weight without trying: Yes How much weight loss: Unsure Eating poorly because of decreased appetite: Yes Nutrition screen score: 5 Nutrition Risks: Poor intake 0-25% >4 days Poor oral hygiene: No service: No Current occupational status: employed Current occupational exposures/hazards: No Cognitive needs: No Hearing needs: No Vision needs: No Physical Exam ED Vital Signs: Vital Signs - 24 hr 04/28/24 20:35 04/28/24 20:45 04/28/24 21:04 Temperature 100.9 F H 99.3 F Pulse Rate 130 H 111 H Pulse Rate [Monitor] 110 H Respiratory Rate 24 H 15 Blood Pressure 85/57 L 100/58 L Pulse Oximetry 97 98 Oxygen Delivery Method Room Air Room Air 04/28/24 21:32 04/28/24 21:35 04/28/24 21:48 Temperature Pulse Rate 110 H 107 H 110 H Pulse Rate [Monitor] Respiratory Rate 15 16 Blood Pressure 110/62 115/56 L 109/62 Pulse Oximetry 100 100 Oxygen Delivery Method Room Air Room Air 04/28/24 22:15 04/28/24 22:19 04/28/24 22:57 Temperature 102.2 F H Pulse Rate 115 H 111 H Pulse Rate [Monitor] Respiratory Rate 16 Blood Pressure 108/69 73/34 L Pulse Oximetry 100 98 Oxygen Delivery Method Room Air Room Air 04/28/24 23:03 04/28/24 23:10 04/28/24 23:18 Temperature 102 F H Pulse Rate 114 H 115 H 111 H Pulse Rate [Monitor] Respiratory Rate 18 19 18 Blood Pressure 108/57 L 100/54 L 89/53 L Pulse Oximetry 100 99 100 Oxygen Delivery Method Room Air Room Air Room Air 04/28/24 23:19 04/28/24 23:51 04/29/24 00:00 Temperature 102.5 F H Pulse Rate 111 H 114 H Pulse Rate [Monitor] Respiratory Rate 18 18 Blood Pressure 94/50 L 81/32 L 87/30 L Pulse Oximetry 100 100 Oxygen Delivery Method Room Air Room Air 04/29/24 00:00 04/29/24 00:02 04/29/24 00:13 Temperature Pulse Rate 109 H Pulse Rate [Monitor] Respiratory Rate 16 Blood Pressure 87/30 L 89/37 L 84/36 L Pulse Oximetry Oxygen Delivery Method 04/29/24 00:17 04/29/24 00:22 04/29/24 00:27 Temperature Pulse Rate 113 H 114 H 119 H Pulse Rate [Monitor] Respiratory Rate 20 19 19 Blood Pressure 89/43 L 89/44 L 94/42 L Pulse Oximetry Oxygen Delivery Method 04/29/24 00:32 04/29/24 00:37 04/29/24 00:37 Temperature Pulse Rate 110 H 107 H 109 H Pulse Rate [Monitor] Respiratory Rate 20 19 Blood Pressure 83/40 L 88/42 L 89/35 L Pulse Oximetry Oxygen Delivery Method 04/29/24 00:38 04/29/24 00:42 04/29/24 00:42 Temperature Pulse Rate 108 H 102 H 104 H Pulse Rate [Monitor] Respiratory Rate 20 20 Blood Pressure 88/42 L 95/39 L 95/39 L Pulse Oximetry Oxygen Delivery Method 04/29/24 00:47 04/29/24 00:52 04/29/24 00:57 Temperature Pulse Rate 101 H 101 H 106 H Pulse Rate [Monitor] Respiratory Rate 24 H 22 H Blood Pressure 107/53 L 102/48 L 111/53 L Pulse Oximetry Oxygen Delivery Method 04/29/24 01:02 04/29/24 01:07 Temperature Pulse Rate 135 H 102 H Pulse Rate [Monitor] Respiratory Rate 20 18 Blood Pressure 126/66 108/46 L Pulse Oximetry 96 96 Oxygen Delivery Method Room Air Room Air BMI result Body Mass Index 28.8 Appearance: Alert. Oriented X3. Mild acute distress. Eyes: Pupils equal, round and reactive to light. ENT: Pharynx dry MM , dry lips Neck: Normal inspection. Neck supple. CVS: Normal heart rate and rhythm. Pulses normal. Respiratory: No respiratory distress. Breath sounds normal. Abdomen: Soft and nontender. Skin: Skin warm and dry. pale skin color. poor skin turgor. has diffuse dry scaling rash Extremities: No lower extremity edema. No calf ttp Neuro: Oriented X 3. No motor deficit. No sensory deficit. Course Course Course Narrative: RME: DOne by SINDY Ricks. 28 yold male presents to the ED for URI SYmptoms with cough, fever, chills, and bodyaches. lungs clear. SARS, Strep, and chest xray ordered. Patient is febrile tachycardic and hypotensive. Patient to be brought to the ED for sepsis protocol Reevaluation(s) Reevaluation #1: no response to IVF x 3.5 L at this time albumin ordered will start on peripheral pressors at this time EJ 18g through neck Medications Administered Generic Name Dose Route Start Last Admin Trade Name Freq PRN Reason Stop Dose Admin Heparin Sodium (Porcine) 5,000 unit 04/29/24 01:15 04/29/24 08:36 Heparin Sodium,Porcine 5,000 Unit/Ml Vial SUBCUT 5,000 unit Q8H NATHALIA Administration Norepinephrine Bitartrate 8 mg in 250 mls @ 0 mls/hr 04/29/24 00:15 04/29/24 09:49 Levophed IVCONT 0 mcg/kg/min .Q0M NATHALIA 0 mls/hr Titration Protocol Per Protocol Cefepime HCl 1 gm/ Sodium 50 mls @ 100 mls/hr 04/29/24 05:00 04/29/24 05:07 Chloride IV Infused Q8H NATHALIA Infusion Trimethoprim/Sulfamethoxazole 1 tab 04/29/24 09:00 04/29/24 10:24 Sulfamethox/Trimeth 800/160 Tablet PO 1 tab DAILY NATHALIA Administration Discontinued Medications Generic Name Dose Route Start Last Admin Trade Name Claudio PRN Reason Stop Dose Admin Acetaminophen 975 mg 04/28/24 20:37 04/28/24 21:20 Acetaminophen 325 Mg Tablet PO 04/28/24 20:38 Not Given ONCE ONE Acetaminophen 650 mg 04/28/24 23:52 04/29/24 00:01 Acetaminophen 325 Mg Tablet PO 04/28/24 23:53 650 mg ONCE ONE Administration Lactated Ringer's 2,574 mls @ 2,574 mls/hr 04/28/24 21:00 04/28/24 23:00 Lr 30 ml/kg infuse over 1 hr (2574 ml) 04/28/24 21:59 Infused IV Infusion .Q1H ONE Ceftriaxone Sodium 1 gm/ 50 mls @ 100 mls/hr 04/28/24 21:00 04/28/24 21:55 Sodium Chloride IV 04/28/24 21:29 Infused ONCE ONE Infusion Vancomycin HCl 2,000 mg in 500 mls @ 250 mls/hr 04/28/24 22:01 04/29/24 00:50 Vancomycin/Ns IV 04/29/24 00:00 Infused ONCE ONE Infusion Lactated Ringer's 1,000 mls @ 100 mls/hr 04/28/24 23:00 04/29/24 04:39 Lr IVCONT Infused .Q10H NATHALIA Infusion Lactated Ringer's 1,000 mls @ 999 mls/hr 04/28/24 23:21 04/29/24 00:30 Lr IV 04/29/24 00:21 Infused .Q1H1M ONE Infusion Albumin Human 100 mls @ 133.333 mls/hr 04/28/24 23:45 04/29/24 03:25 Kedbumin 25 % IV 04/29/24 01:29 Infused Q1H NATHALIA Infusion Levofloxacin 750 mg in 150 mls @ 100 mls/hr 04/29/24 00:10 04/29/24 02:32 Levaquin IV 04/29/24 01:39 Infused ONCE ONE Infusion Vancomycin HCl 1,000 mg/ 270 mls @ 270 mls/hr 04/29/24 10:00 04/29/24 09:38 Sodium Chloride IV 04/29/24 10:01 Infused Q12H NATHALIA Infusion Calcium Gluconate 1 gm in 50 mls @ 50 mls/hr 04/29/24 07:48 04/29/24 09:38 Calcium Gluconate IV 04/29/24 08:47 Infused ONCE ONE Infusion Ibuprofen 600 mg 04/28/24 22:19 04/28/24 22:42 Ibuprofen 600 Mg Tablet PO 04/28/24 22:20 600 mg ONCE ONE Administration Iohexol 100 ml 04/28/24 22:52 04/28/24 22:52 Iohexol 350 Mg/Ml 100 Ml Infus..Btl IV 04/28/24 22:53 100 ml ONCE ONE Administration Procedures EJ/Peripheral Line Neck L: Time Out Performed: Yes Skin Cleansed in Sterile Fashion: Yes Size (gauge): 18 IV Secured and Dressing Applied: Yes Patient Tolerated Procedure: well and no complications Medical Decision Making Medical Decision Making MDM Narrative: 28 yo male with no sig PMH here with 1 month of worsening symptoms of fatigue, fevers, weakness, poor PO intake and cough at this time will obtain labs, cultures, lactic acid, HIV testing, tick borne and start on empiric antibiotics as well as jones CT scan given 1 month duration. He will get admitted given his bandemia. Very concerning story for underlying immunosuppression now with secondary infection. On arrival to his room sepsis alert was called. Differential Diagnosis Differential Diagnoses: The differential diagnosis associated with the presentation includes viral syndrome, HIV, bacterial infection, lymphoma Admission/Observation Consideration of admission/observation: Escalation of care including admission/observation considered admit given bandemia, hypotension, no response to IVF 3.5L needs pressors will start peripheral for now as he is mentating well and I am hoping it will be short lived Consult Healthcare Provider Management of the patient was discussed with: Tobacco Sample Puller spoke to both Dr. Mixon and Jose J CHAMPION aware of work up and agree to take to ICU Lab Data [facility] Lab Attestation statement: I reviewed the patient's lab results. 04/29/24 05:51 04/29/24 05:51 Labs: Lab Results 04/28/24 04/28/24 04/29/24 Range/Units 20:58 21:17 01:06 WBC 4.7 L (4.8-10.8) X10*3/uL RBC 4.30 L (4.60-5.80) X10*6/uL Hgb 11.6 L (14.0-18.0) g/dl Hct 33.3 L (42.0-52.0) % MCV 77.4 L (80.0-98.0) fL MCH 27.0 (27.0-33.0) pg MCHC 34.8 (31.0-36.0) g/dl RDW 13.8 (11.0-16.0) % Plt Count 165 D (160-400) X10*3/uL MPV 11.8 (9.4-12.4) fL Immature Gran % (Auto) Cancelled Neut % (Auto) Cancelled Lymph % (Auto) Cancelled [place]yer % (Auto) Cancelled Eos % (Auto) Cancelled Baso % (Auto) Cancelled Lymph # (Auto) Cancelled [place]yer # (Auto) Cancelled Eos # (Auto) Cancelled Baso # (Auto) Cancelled Abs Immat Gran (auto) Cancelled Absolute Neuts (auto) Cancelled Absolute Nucleated RBC 0.000 (0.0-0.012) X10*3/uL Nucleated RBC % (auto) 0.0 (0.0-0.2) /100WBC Neutrophils % (Manual) 73 (45-73) % Band Neutrophils % 20 H (3-5) % Lymphocytes % (Manual) 5 L (20-40) % Monocytes % (Manual) 1 L (2-11) % Eosinophils % (Manual) 1 (0-4) % Abs Neuts (Manual) 4.4 (2.0-8.3) X10*3/uL Lymphocytes # (Manual) 0.2 L (1.2-4.9) X10*3/uL Platelet Estimate NORMAL (NORMAL) Plt Morphology Comment NORMAL RBC Morphology NORMAL Smear Tech's Comments VERIFIED Sodium 140 (135-145) mmol/L Potassium 4.0 (3.3-5.1) mmol/L Chloride 108 (96-108) mmol/L Carbon Dioxide 22 (22-29) mmol/L Anion Gap 14 (12-20) BUN 16 (9-16) mg/dL Creatinine 1.15 (0.5-1.4) mg/dL Estim Creat Clear Calc 101.0 Estimated GFR > 60 Random Glucose 119 H (60-115) mg/dL Lactic Acid 1.8 (0.5-2.0) mmol/L Calcium 9.3 (8.4-10.2) mg/dL Total Bilirubin 1.3 H (0.0-1.0) mg/dL AST 54 H (5-37) U/L ALT 25 (0-40) U/L Alkaline Phosphatase 83 (39-117) U/L Lactate Dehydrogenase 480 H (118-273) U/L Total Creatine Kinase 72 (38-174) U/L Total Protein 8.6 H (6.5-8.0) g/dL Albumin 4.0 (3.5-5.0) g/dL Procalcitonin 4.93 ng/mL Urine Color Yellow Urine Appearance Clear Urine pH 8.0 (5.0-9.0) Ur Specific [place] >= 1.030 H (1.005-1.025) Urine Protein Negative (Neg-Trace) mg/dL Urine Glucose (UA) Negative (Negative) mg/dL Urine Ketones Negative (Negative) mg/dL Urine Blood Negative (Negative) Urine Nitrite Negative (Negative) Ur Leukocyte Esterase Negative (Negative) Urine Opiates Screen Not Detected (Not Detect) Ur Buprenorphine Scrn Not Detected (Not Detect) ng/mL Ur Oxycodone Screen Not Detected (Not Detect) ng/mL Urine Methadone Screen Not Detected (Not Detect) ng/mL Urine Fentanyl Screen Not Detected (Not Detect) Ur Barbiturates Screen Not Detected (Not Detect) Ur Phencyclidine Scrn Not Detected (Not Detect) Ur Amphetamines Screen Not Detected (Not Detect) U Benzodiazepines Scrn Not Detected (Not Detect) Urine Cocaine Screen Not Detected (Not Detect) U Marijuana (THC) Screen Not Detected (Not Detect) Chlam trachomat DNA PCR NOT DETECTED (Not Detect.) Hepatitis A IgM Ab Nonreactive (Nonreactive) Hep Bs Antigen Negative (Negative) Hep Bs Antibody NONREACTIVE (Nonreactive) Hep B Core Total Ab Nonreactive (Nonreactive) Hepatitis C Ab (EIA) Nonreactive (Nonreactive) Monoscreen Negative (Negative) HIV 1&2 Ab/P24 Ag 4thGn Reactive H (Nonreactive) Influenza Type A (PCR) NEGATIVE (Negative) Influenza Type B (PCR) NEGATIVE (Negative) N.gonorrhoeae DNA (PCR) NOT DETECTED (Not Detect.) RSV RNA Qual (PCR) NEGATIVE (Negative) SARS-CoV-2 RNA (RT-PCR) NEGATIVE (Negative) S. pyogenes GrpA PHIL Negative (Negative) Independent Interpretation I performed an independent interpretation of an: EKG, Plain X-Ray (no pneumonia) and CT Scan (nodules in lungs, lymphadenopathy) Interpretation: Rate: 102 Rhythm: sinus tachycardia [place]: left Normal P waves. Normal STEPHEN. Normal QRS complex. ST T wave : normal no KENRICK qTC: 437 prior studies: no acute ischemia The study has been interpreted contemporaneously by me. . Radiology Impression Discussion of test interpretation with radiology: I have reviewed the radiologist's reading. Independent Historian Clinical information obtained from an independent historian. History obtained from or confirmed by: Parent External Record Review External record reviewed: Inpatient record Critical Care Time Critical Care Time Critical Care Time: Yes Total Critical Care Time: 60 Attestation: IVF x 3L, review of records, practice management consultant, admission I attest to this time spent taking care of the patient Discharge Plan Discharge Clinical Impression: Bandemia, Malaise, Acute hypotension Fever Qualifiers: Fever type: unspecified Qualified Code(s): R50.9 - Fever, unspecified Patient Disposition: Admitted As Inpatient Interventions: Admission Worksheet (ED) Last Done: 04/29/24 04:19 Discharge Date/Time: 04/29/24 04:20
[2024-04-28] MEDS: LACTATED RINGERS 2574 ML IV (21:03)
[2024-04-28 21:06] LABS: Hematocrit 33.3 % (42.0-52.0); Hemoglobin 11.6 g/dl (14.0-18.0); Mean Corpuscular HGB Conc 34.8 g/dl (31.0-36.0); Mean Corpuscular Volume 77.4 fL (80.0-98.0); Mean Platelet Volume 11.8 fL (9.4-12.4); Platelet Count 165 X10*3/uL (160-400); Red Cell Distribution Width 13.8 % (11.0-16.0); White Blood Count 4.7 X10*3/uL (4.8-10.8)
[2024-04-28] MEDS: cefTRIAXone sodium 1 GM in 0.9 % Sodium Chloride 50 ML IV (21:20)
[2024-04-28 21:22] LABS: Lactic Acid 1.8 mmol/L (0.5-2.0)
[2024-04-28 21:34] LABS: SLIDE REVIEW VERIFIED
[2024-04-28 21:45] LABS: Neutrophils Percent Manual 73 % (45-73)
[2024-04-28 21:46] LABS: Band Neutrophils Percent 20 % (3-5); Eosinophils Percent Manual 1 % (0-4); Lymphocytes Absolute Manual 0.2 X10*3/uL (1.2-4.9); Lymphocytes Percent Manual 5 % (20-40); Monocytes Percent Manual 1 % (2-11); Neutrophils Absolute Manual 4.4 X10*3/uL (2.0-8.3)
[2024-04-28 21:49] LABS: RBC Morphology NORMAL
[2024-04-28 21:51] LABS: Influenza A PCR NEGATIVE (Negative); Influenza B PCR NEGATIVE (Negative); Monotest Negative (Negative); Resp Syncy Virus RNA Qual PCR NEGATIVE (Negative); SARS COV2 PCR INHOUSE NEGATIVE (Negative)
[2024-04-28 21:53] LABS: Platelet Estimate NORMAL (NORMAL); Platelet Morphology Comment NORMAL
[2024-04-28 21:59] LABS: IDNOW Serial# 6674DD1D; Strep A Nucleic Acid Negative (Negative)
[2024-04-28 22:02] LABS: Procalcitonin 4.93 ng/mL
[2024-04-28 22:12] LABS: Alanine Aminotransferase 25 U/L (0-40); Alkaline Phosphatase 83 U/L (39-117); Anion Gap 14 (12-20); Aspartate Amino Transferase 54 U/L (5-37); Bilirubin Total 1.3 mg/dL (0.0-1.0); Blood Urea Nitrogen 16 mg/dL (9-16); Calcium 9.3 mg/dL (8.4-10.2); Carbon Dioxide 22 mmol/L (22-29); Chloride 108 mmol/L (96-108); Estimated Glomerular Filt Rate > 60; Glucose Random 119 mg/dL (60-115); Sodium 140 mmol/L (135-145); Total Protein 8.6 g/dL (6.5-8.0)
[2024-04-28] MEDS: vancomycin/NS 2,000 MG/500 ML PLAST..BAG 250 MG IV (22:14)
--- NOTE | 2024-04-28 22:18 | PC.NURSE ---
edgard reported to
--- NOTE | 2024-04-28 22:19 | PC.NURSE ---
aware of temp
[2024-04-28] MEDS: Ibuprofen 600 MG TABLET PO (22:42)
[2024-04-28] MEDS: iohexoL 350 MG/ML 100 ML INFUS..BTL IV (22:52)
[2024-04-28] MEDS: Lactated Ringers 1,000 ML 100 ML IVCONT (23:23)
[2024-04-28] MEDS: Lactated Ringers 1,000 ML 999 ML IV (23:27)
--- NOTE | 2024-04-28 23:44 | PC.NURSE ---
LATE ENTRY ambulatory with steady gait from wr to ed19 with meeting sepsis criteria. iv established and labs drawn. ivf hung per mar. 2nd iv established as documented as abx incompatible with ivf. iv abx hung per oct. pt reports had taken tylenol correctional captain, tylenol held at this time. pt is axox4 speaking full clear sentences, denies cp/sob/n/v/d, some episodes of feeling dizzy. pt changed into hospital attire and placed on continuous cardiac, o2 and bp monitoring. lung sounds cta. at time of MD assessment pt reports risks for hiv. labs drawn per MD order. approx 0 R. forearm iv infiltrated. new iv established to R. AC.
--- NOTE | 2024-04-28 23:51 | PC.NURSE ---
MD made aware of BP as pt received approx 500mL of LR bolus. new order for albumin per MD.
[2024-04-29] VITALS (42 sets, daily range): BP systolic 83–131; BP diastolic 30–97; PULSE 72–135; RESP 13–27; TEMP 36.2–38.8; O2SAT 95–100; BMI 29.8
[2024-04-29] MEDS: Acetaminophen 325 MG TABLET 650 MG PO (00:01)
[2024-04-29] MEDS: Albumin Human 25 % 100 ML 133.33 ML IV ×2 (00:09→01:40)
--- NOTE | 2024-04-29 00:17 | PC.NURSE ---
at bedside to obtain new IV via u/s.
[2024-04-29] MEDS: Norepinephrine Bitartrate/D5W 8 MG/250 ML PLAST..BAG 8.04 MG IVCONT (00:37)
--- NOTE | 2024-04-29 00:46 | ECG_ITS ---
Test Reason : TACHY Blood Pressure : / mmHG Vent. Rate : 102 BPM Atrial Rate : 102 BPM P-R Int : 172 ms QRS Dur : 092 ms QT Int : 336 ms P-R-T Axes : 049 003 017 degrees QTc Int : 437 ms Sinus tachycardia Otherwise normal ECG No previous ECGs available Referred By: Sofy Pitts Electronically Signed By:KASIE GUZMAN
[2024-04-29] MEDS: levoFLOXacin/D5W 750 MG/150 ML PIGGYBACK 100 MG IV (00:54)
[2024-04-29 01:16] LABS: Appearance Urine Clear; Color Urine Yellow; Glucose Urine UA Negative (Negative); Leukocyte Esterase Urine Negative (Negative); Nitrite Urine Negative (Negative); Specific Gravity - Urine >= 1.030 (1.005-1.025); Urine Blood Negative (Negative); Urine Ketones Negative (Negative); Urine Protein Negative (Neg-Trace)
--- NOTE | 2024-04-29 01:26 | PC.NURSE ---
0030 - EJ placed by MD durham L. neck. pt tolerated well.
--- NOTE | 2024-04-29 01:29 | PC.NURSE ---
0037 - Levophed started per oct via L. neck EJ.
--- NOTE | 2024-04-29 01:29 | PC.NURSE ---
pt had not voided urine since arrival. bladder scan showed 414mL urine. assisted pt to bedside to use urinal. able to urinate 520mL urine. urine sent to lab as ordered. pt denied dizziness upon standing.
[2024-04-29 01:30] LABS: Amphetamine Screen Urine Not Detected (Not Detect); Barbiturates, Urine Not Detected (Not Detect); Benzodiazepines Screen Urine Not Detected (Not Detect); Buprenorphine Scr Not Detected (Not Detect); Cannabinoid Screen Urine Not Detected (Not Detect); Cocaine Screen Urine Not Detected (Not Detect); Fentanyl, urine Not Detected (Not Detect); Methadone Screen, Urine Not Detected (Not Detect); Opiate Screen Urine Not Detected (Not Detect); Oxycodone Screen Urine Not Detected (Not Detect); Phencyclidine Screen Urine Not Detected (Not Detect)
--- NOTE | 2024-04-29 01:33 | PC.NURSE ---
ICU DATABASE DESIGN ANALYST aware of temp.
[2024-04-29] MEDS: Heparin Sodium,Porcine 5,000 UNIT/ML VIAL 5000 UNIT SUBCUT ×2 (02:33→08:36)
[2024-04-29 03:06] LABS: Lactate Dehydrogenase 480 U/L (118-273)
[2024-04-29 03:19] LABS: CT PCR NOT DETECTED (Not Detect.); NG PCR NOT DETECTED (Not Detect.)
--- NOTE | 2024-04-29 04:15 | P.HPCC_ITS ---
History of Present Illness Date of Service: 04/29/24 <Soledad Lux NP - Last Filed: 04/29/24 04:33> Attending physician on admission: Talia Mixon <Soledad Lux NP - Last Filed: 04/29/24 04:33> Chief Complaint: Fever <Soledad Lux NP - Last Filed: 04/29/24 04:33> Mr. Hill is a 28 yo male with PMH of eczema who presented to the emergency room with? cough, fever, chills, and body aches that began approximately 1 month ago. He was treated with? a course of amoxicillin and then Ceftin for both acute otitis media and acute bronchitis? with no change in condition. He denies any hx of known immunocompromise. He denies IVDA.? He reports having sex with men but uses condoms. He has never had an HIV test. He has no indwelling hardware. He denies night sweats but has lost weight. He reports decreased fluid intake and has had loose stools. No known tick bites, no issues or rectal pain/discomfort. He denies lesions anywhere or rash other than typical eczema.? His appetite is poor and he has lost a significant amount of weight without trying over the last 6 months, however he is not sure exactly how much. On arrival to the ER, his BP was 85/57, heart rate 130, respiratory rate 24, O2 sat 97% on room air.? He was febrile with temp 100.9 F. Laboratory data significant for WBC 4.7 with? 20% bands, platelet 165 (263 ten days ago) T bili 1.3, AST 54, total protein 8.6, lactic acid 1.8, procalcitonin 4.93, UA negative, influenza A&B, RSV, COVID, group a strep all negative. Monoscreen negative. Imaging: ? Chest x-ray unremarkable. CT showed small areas of nodular infiltrative changes in the right upper lobe as well as bilateral superior segment lower lobes. Nonspecific mediastinal, hilar, axillary, retroperitoneal, and groin lymphadenopathy.? Prominent fluid-filled segments? of small and large bowel.? Borderline appendix with no significant periappendiceal infiltration. ED course:? The patient received a total of 3574 mL crystalloids, 200 mL colloid, a total of 1625 mg? acetaminophen, ibuprofen 600 mg, ceftriaxone 1 g, vancomycin 2 g, levofloxacin 750 mg.? He became hypotensive and was started on a Norepinephrine drip. <Soledad Lux NP - Last Filed: 04/29/24 04:33> Review of Systems 2 Review of Systems: Yes all other systems are reviewed and are negative < AKIRA Sebastian Last Filed: 04/29/24 04:33> Constitutional: Constitutional: Reports body ache(s), Reports chills, Reports fatigue, Reports fever(s), Denies headache(s), Reports lethargy, Reports poor appetite and Reports weight loss <AKIRA Sebastian Last Filed: 04/29/24 04:33> Eyes: Eyes: Denies irritation and Denies eye pain <AKIRA Sebastian Last Filed: 04/29/24 04:33> ENT: Reports Normal hearing present, Denies dizziness, Denies headache(s) and Denies nasal congestion <AKIRA Sebastian Last Filed: 04/29/24 04:33> Cardiovascular: Cardiovascular: Denies chest pain, Denies epigastric discomfort and Denies dyspnea <AKIRA Sebastian Last Filed: 04/29/24 04:33> Respiratory: Respiratory: Reports cough (dry, non-productive), Denies dyspnea and Denies wheezing <AKIRA Sebastian Last Filed: 04/29/24 04:33> Gastrointestinal: Gastrointestinal: Denies abdominal pain, Reports diarrhea, Denies nausea and Denies vomiting <AKIRA Sebastian Last Filed: 04/29/24 04:33> Genitourinary: Genitourinary: Denies difficulty urinating, Denies urinary frequency and Denies urinary urgency <AKIRA Sebastian Last Filed: 04/29/24 04:33> Musculoskeletal: Musculoskeletal: Reports myalgias, Denies arthralgias, Denies joint swelling and Reports muscle weakness <AKIRA Sebastian Last Filed: 04/29/24 04:33> Integumentary/Breasts: Skin/Breast: Denies lesions, Denies rash, Denies sores and Denies jaundice <AKIRA Sebastian Last Filed: 04/29/24 04:33> Neurologic: Reports Normal hearing present, Denies dizziness and Denies headache(s) <Soledad Lux NP - Last Filed: 04/29/24 04:33> Psychiatric: Psychiatric: Reports change in appetite <Soledad Lux NP - Last Filed: 04/29/24 04:33> Endocrine: Endocrine: Reports no additional endocrine complaints and Reports fatigue <Soledad Lux NP - Last Filed: 04/29/24 04:33> Allergic/Immunologic: Allergic/Immunologic: Denies wheezing <Soledad Lux NP - Last Filed: 04/29/24 04:33> PMFSH Past Medical History Medical History: Medical History Encounter to establish care <Soledad Lux NP - Last Filed: 04/29/24 04:33> Family History Family History: Family History Father No problems noted. Mother No problems noted. <Soledad Lux NP - Last Filed: 04/29/24 04:33> Surgical History Surgical History: Surgical History No pertinent past surgical history <Soledad Lux NP - Last Filed: 04/29/24 04:33> Social History Social History: Social History Household Members: Family Household Members Other:: Mother, brother Housing: House Do you presently have visiting nurse or other home services: No Alcohol intake: never Patient Tobacco Use Status: Never used Tobacco Smoked in Last 30 Days: No e-Cigarette/Vaping Use: Never Used Second Hand Smoke Exposure: No Use of substances other than those prescribed or required for medical reasons: No Currently Displaying Signs/Symptoms of Drug Intoxication Withdrawal: No Have you been hit, kicked, punched, or otherwise hurt by someone within the past year? If so, by whom?: No Do you feel safe in your current relationship?: No Current Relationship Is there a partner from a previous relationship who is making you feel unsafe now?: No Are you made to feel afraid or neglected: No [employer] Healthcare Practices: None per pt Advance Directives: No Advance Directives Information Provided: No Do you have a plan to hurt others: No Plan Recently lost weight without trying: Yes How much weight loss: Unsure Eating poorly because of decreased appetite: Yes Nutrition screen score: 5 Nutrition Risks: Poor intake 0-25% >4 days Poor oral hygiene: No service: No Current occupational status: employed Current occupational exposures/hazards: No Cognitive needs: No Hearing needs: No Vision needs: No <Soledad Lux NP - Last Filed: 04/29/24 04:33> Meds Allergies/Adverse reactions: Allergies Allergy/AdvReac Type Severity Reaction Status Date / Time No Known Allergies Allergy Verified 04/28/24 20:38 <Soledad Lux NP - Last Filed: 04/29/24 04:33> Active Medications: Current Medications Heparin Sodium (Porcine) (Heparin Sodium,Porcine 5,000 Unit/Ml Vial) 5,000 unit SUBCUT Q8H [facility] Last Admin: 04/29/24 02:33 Dose: 5,000 unit Lactated Ringer's (Lr) 1,000 mls @ 100 mls/hr IVCONT .Q10H [facility] Last Admin: 04/28/24 23:23 Dose: 100 mls/hr Norepinephrine Bitartrate (Levophed) 8 mg in 250 mls @ 0 mls/hr IVCONT .Q0M [facility]; Protocol Last Titration: 04/29/24 00:47 Dose: 0.07 mcg/kg/min, 11.26 mls/hr Levofloxacin (Levaquin) 750 mg in 150 mls @ 100 mls/hr IV Q24H [facility] Cefepime HCl 1 gm/ Sodium (Chloride) 50 mls @ 100 mls/hr IV Q8H [facility] Pharmacy Consult (Consult Rx Vancomycin Dosing) 1 each MISCELLANE DAILY PRN PRN Reason: Consult order <Soledad Lux NP - Last Filed: 04/29/24 04:33> Physical Exam 2 Vital Signs: Vital Signs: Last Vital Signs Temp 98.1 F 04/29/24 04:00 Pulse 93 04/29/24 04:00 Resp 27 H 04/29/24 04:00 BP 119/70 04/29/24 04:00 Pulse Ox 99 04/29/24 04:00 O2 Del Method Room Air 04/29/24 04:00 BMI result Body Mass Index 28.8 <AKIRA Sebastian Last Filed: 04/29/24 04:33> Const: General: cooperative, no acute distress and alert <AKIRA Sebastian Last Filed: 04/29/24 04:33> Orientation/consciousness: patient oriented x3 <AKIRA Sebastian Last Filed: 04/29/24 04:33> Limitations: no limitations <AKIRA Sebastian Last Filed: 04/29/24 04:33> HEENT: Head: Yes normocephalic and Yes atraumatic <AKIRA Sebastian Last Filed: 04/29/24 04:33> General nose exam: Normal external nose present (Nares patent, septum midline, sinuses nontender bilaterally.) <AKIRA Sebastian Last Filed: 04/29/24 04:33> Mouth: mucous membranes dry (Dry mucous membranes, no thrush, tongue in midline) <AKIRA Sebastian Last Filed: 04/29/24 04:33> Teeth and gingiva: dentition normal <AKIRA Sebastian Last Filed: 04/29/24 04:33> Throat: Yes other (No erythema, no exudate.) <AKIRA Sebastian Last Filed: 04/29/24 04:33> Neck: Neck: Yes supple (no thyromegaly, trachea midline.) and No lymphadenopathy <AKIRA Sebastian Last Filed: 04/29/24 04:33> Carotids: normal carotid upstroke <AKIRA Sebastian Last Filed: 04/29/24 04:33> Resp: Effort & Inspection: normal respiratory effort, able to speak in complete sentences and no respiratory distress <AKIRA Sebastian Last Filed: 04/29/24 04:33> Auscultation: clear to auscultation bilaterally (normal work of breathing, no accessory muscle use) <AKIRA Sebastian Last Filed: 04/29/24 04:33> Cardio: Jugular venous distension: no JVD <AKIRA Sebastian Last Filed: 04/29/24 04:33> Rate: regular rate <AKIRA Sebastian Last Filed: 04/29/24 04:33> Rhythm: regular rhythm <AKIRA Sebastian Last Filed: 04/29/24 04:33> Heart sounds: no gallops, no murmurs and no rubs <AKIRA Sebastian Last Filed: 04/29/24 04:33> Peripheral pulses: Peripheral pulses 2+ throughout <Soledad Lux NP - Last Filed: 04/29/24 04:33> GI: Palpation (GI): Soft to palpation (nondistended.) and nontender < Soledad Lux NP - Last Filed: 04/29/24 04:33> Auscultation: normal bowel sounds <AKIRA Sebastian Last Filed: 04/29/24 04:33> Skin: General skin exam: dry skin and no jaundice <AKIRA Sebastian Last Filed: 04/29/24 04:33> Rashes: rashes noted (eczema) <AKIRA Sebastian Last Filed: 04/29/24 04:33> Trauma: no lacerations or abrasions <AKIRA Sebastian Last Filed: 04/29/24 04:33> Wounds: no wounds <AKIRA Sebastian Last Filed: 04/29/24 04:33> Neuro: General: patient oriented x3 <AKIRA Sebastian Last Filed: 04/29/24 04:33> Cranial nerves: Yes CN's II-XII intact bilaterally and Yes Normal hearing present <AKIRA Sebastian Last Filed: 04/29/24 04:33> Cognition (Neuro): normal cognition <AKIRA Sebastian Last Filed: 04/29/24 04:33> Extrem: General: Yes full ROM, Yes capillary refill normal and Yes no clubbing, cyanosis or edema <Soledad Lux NP - Last Filed: 04/29/24 04:33> Psych: Appearance: grossly normal and well kempt <AKIRA Sebastian Last Filed: 04/29/24 04:33> Speech and movement: Normal speech and movement present <AKIRA Sebastian Last Filed: 04/29/24 04:33> Affect: normal affect <Soledad Lux NP - Last Filed: 04/29/24 04:33> Attitude: cooperative <Soledad Lux COSTUME SHOP MANAGER - Last Filed: 04/29/24 04:33> Results Labs CBC and Chem 7: 04/29/24 05:51 04/29/24 05:51 <Soledad Lux [employer]STU[employer] SHOP MANAGER - Last Filed: 04/29/24 04:33> Labs: Laboratory Results - last 24 hr 04/28/24 04/28/24 04/29/24 20:58 21:17 01:06 MCV 77.4 L MCH 27.0 MCHC 34.8 RDW 13.8 Plt Count 165 D MPV 11.8 Immature Gran % (Auto) Cancelled Neut % (Auto) Cancelled Lymph % (Auto) Cancelled [place] % (Auto) Cancelled Eos % (Auto) Cancelled Baso % (Auto) Cancelled Lymph # (Auto) Cancelled [place] # (Auto) Cancelled Eos # (Auto) Cancelled Baso # (Auto) Cancelled Abs Immat Gran (auto) Cancelled Absolute Neuts (auto) Cancelled Absolute Nucleated RBC 0.000 Nucleated RBC % (auto) 0.0 Neutrophils % (Manual) 73 Band Neutrophils % 20 H Lymphocytes % (Manual) 5 L Monocytes % (Manual) 1 L Eosinophils % (Manual) 1 Abs Neuts (Manual) 4.4 Lymphocytes # (Manual) 0.2 L Platelet Estimate NORMAL Plt Morphology Comment NORMAL RBC Morphology NORMAL Smear Tech's Comments VERIFIED Anion Gap 14 Estim Creat Clear Calc 101.0 Estimated GFR > 60 Random Glucose 119 H Lactic Acid 1.8 Calcium 9.3 Total Bilirubin 1.3 H AST 54 H ALT 25 Alkaline Phosphatase 83 Lactate Dehydrogenase 480 H Total Creatine Kinase 72 Total Protein 8.6 H Albumin 4.0 Procalcitonin 4.93 Urine Color Yellow Urine Appearance Clear Urine pH 8.0 Ur Specific [place] >= 1.030 H Urine Protein Negative Urine Glucose (UA) Negative Urine Ketones Negative Urine Blood Negative Urine Nitrite Negative Ur Leukocyte Esterase Negative Urine Opiates Screen Not Detected Ur Buprenorphine Scrn Not Detected Ur Oxycodone Screen Not Detected Urine Methadone Screen Not Detected Urine Fentanyl Screen Not Detected Ur Barbiturates Screen Not Detected Ur Phencyclidine Scrn Not Detected Ur Amphetamines Screen Not Detected U Benzodiazepines Scrn Not Detected Urine Cocaine Screen Not Detected U Marijuana (THC) Screen Not Detected Chlam trachomat DNA PCR NOT DETECTED Monoscreen Negative Influenza Type A (PCR) NEGATIVE Influenza Type B (PCR) NEGATIVE N.gonorrhoeae DNA (PCR) NOT DETECTED RSV RNA Qual (PCR) NEGATIVE SARS-CoV-2 RNA (RT-PCR) NEGATIVE S. pyogenes GrpA PHIL Negative <Soledad Lux NP - Last Filed: 04/29/24 04:33> Imaging Radiologist's Impressions: Impressions Chest X-Ray 04/28/24 20:37 IMPRESSION: Unremarkable examination. Electronically signed by: Michel Dawkins MD 04/28/2024 11:34 PM EDT RP Abdomen/Pelvis CT 04/28/24 22:48 IMPRESSION: 1. Small areas of nodular infiltrative change in the right upper lobe as well as bilateral superior segment lower lobes. This could be postinfectious versus early infectious. Correlation needed. 2. Nonspecific mediastinal, hilar, axillary, retroperitoneal, and groin lymphadenopathy. 3. Prominent fluid-filled segments of small bowel and scattered large bowel. 4. The appendix is borderline in size measuring up to 7 mm. There is no significant periappendiceal infiltration. Fleischner guidelines were followed. Electronically signed by: Michel Dawkins MD 04/29/2024 12:32 AM EDT RP Chest CT 04/28/24 22:48 IMPRESSION: 1. Small areas of nodular infiltrative change in the right upper lobe as well as bilateral superior segment lower lobes. This could be postinfectious versus early infectious. Correlation needed. 2. Nonspecific mediastinal, hilar, axillary, retroperitoneal, and groin lymphadenopathy. 3. Prominent fluid-filled segments of small bowel and scattered large bowel. 4. The appendix is borderline in size measuring up to 7 mm. There is no significant periappendiceal infiltration. Fleischner guidelines were followed. Electronically signed by: Michel Dwakins MD 04/29/2024 12:32 AM EDT RP <Soledad Lux [employer] SHOP MANAGER - Last Filed: 04/29/24 04:33> Assessment and Plan (1) Acute hypotension: Status: Acute <Soledad Lux NP - Last Filed: 04/29/24 04:33> (2) Malaise: Status: Acute <Soledad Lux [employer] SH[employer] MANAGER - Last Filed: 04/29/24 04:33> (3) Fever: Qualifiers: Fever type: unspecified Qualified Code(s): R50.9 - Fever, unspecified <Soledad Lux, CO[employer] SHOP MANAGER - Last Filed: 04/29/24 04:33> Status: Acute <Soledad Lux [employer]STUME SHOP MANAGER - Last Filed: 04/29/24 04:33> (4) Bandemia: Status: Acute <Soledad Lux [employer] SHOP MANAGER - Last Filed: 04/29/24 04:33> (5) Anemia: Qualifiers: Anemia type: unspecified type Qualified Code(s): D64.9 - Anemia, unspecified <Soledad Lux [employer]UME SHOP MANAGER - Last Filed: 04/29/24 04:33> Status: Acute <Soledad Lux [employer]STUME SHOP MANAGER - Last Filed: 04/29/24 04:33> 28-year-old male with history of eczema, obesity, infectious mononucleosis with hepatitis? admitted to the ICU for management of distributive shock. Neuro: ? ? No acute issues Cardiac: ?Distributive shock, leukopenia with left shift, hypotension, no lactic acidosis. Fluid resuscitated with 3.5 L in ED. Norepinephrine.? Pulmonary: No acute issues.? Renal:? No acute issues.? Endo: ???No acute issues. GI: No acute issues. ID: Significant lymphadenopathy noted on imaging. History of infectious mononucleosis with hepatitis.? Received? ceftriaxone, vancomycin, levofloxacin. Blood cultures pending. Lyme panel, hepatitis panel, HIV, GC / chlamydia pending. Will add extended respiratory panel, sputum, QuantiFERON. Continue antibiotics. Heme/Onc: ?Microcytic anemia, leukopenia with left shift.? Trend CBC.? Await serology results.? Psych? No acute issues. Prophylaxis: Heparin Diet:? Regular Case discussed with attending Dr. Mixon. <Soledad uLx, CO[employer] SH[employer] MANAGER - Last Filed: 04/29/24 04:33> 28-year-old male with history of eczema, obesity, infectious mononucleosis with hepatitis? admitted to the ICU for management of distributive shock. Neuro: ? ? No acute issues Cardiac: ?Distributive shock, leukopenia with left shift, though no lactic acidosis. Fluid resuscitated with 3.5 L in ED. Norepinephrine.gtt; wean as tolerated Pulmonary: No acute issues.? Renal:? No acute issues.? Endo: ???No acute issues. GI: No acute issues. ID: Significant lymphadenopathy noted on imaging. History of infectious mononucleosis with hepatitis.? Received? ceftriaxone, vancomycin, levofloxacin. Blood cultures pending. Lyme panel, hepatitis panel, HIV, GC / chlamydia pending. Will add extended respiratory panel, sputum, QuantiFERON. Continue antibiotics. Heme/Onc: ?Microcytic anemia, leukopenia with left shift.? Trend CBC.? Await serology results.? Psych? No acute issues. Prophylaxis: Heparin Diet:? Regular Case discussed with attending Dr. Mixon. <Talia Mixon MD - Last Filed: 04/29/24 07:47>
--- NOTE | 2024-04-29 04:18 | PC.NURSE ---
pt transported to icu on cardiac/bp monitor. TREVER Reilly verbal report given. nad at time of transport afebrile vss. levophed drip and LR infusing per mar at time of transport.
[2024-04-29 04:20] LABS: HBS Num1 1.25 mIU/mL (0-7.99); HBc Num1 0.18 S/CO (0.00-0.79); HBsAGNum1 0.54 S/CO (0.00-0.99); Hepatitis B Core Antibody Nonreactive (Nonreactive); Hepatitis B Surface Antigen Negative (Negative); ~HepC Num1 0.29 S/CO (0.00-0.79); ~Hepatitis A Antibody IgM Nonreactive (Nonreactive); ~Hepatitis B Surface Antibody NONREACTIVE (Nonreactive); ~Hepatitis C Antibody Nonreactive (Nonreactive)
[2024-04-29] MEDS: cefEPime HCl 1 GM in 0.9 % Sodium Chloride 50 ML IV ×3 (04:37→21:27)
[2024-04-29 05:24] LABS: HIV AB/AG Reactive (Nonreactive); HIV Num 3 751.17 S/CO
--- NOTE | 2024-04-29 05:31 | ECG_ITS ---
Test Reason : rhythm check Blood Pressure : / mmHG Vent. Rate : 077 BPM Atrial Rate : 077 BPM P-R Int : 186 ms QRS Dur : 094 ms QT Int : 400 ms P-R-T Axes : 049 014 021 degrees QTc Int : 452 ms Sinus rhythm with marked sinus arrhythmia Otherwise normal ECG When compared with ECG of 29-APR-2024 00:43, Heart rate has decreased Referred By: Soledad Lux Electronically Signed By:KASIE GUZMAN
[2024-04-29 06:22] LABS: Anion Gap 13 (12-20); Blood Urea Nitrogen 15 mg/dL (9-16); Calcium 8.3 mg/dL (8.4-10.2); Carbon Dioxide 22 mmol/L (22-29); Chloride 110 mmol/L (96-108); Creatinine Clr Calc Pharmacy 137.2; Estimated Glomerular Filt Rate > 60; Glucose Random 117 mg/dL (60-115); Magnesium 1.7 mg/dL (1.6-2.6); Phosphorus 3.7 mg/dL (2.7-4.5); Potassium 3.7 mmol/L (3.3-5.1); Sodium 141 mmol/L (135-145)
[2024-04-29 06:26] LABS: Basophils Percent Auto 0.4 % (0-2); Eosinophils Absolute Auto 0.1 X10*3/uL (0.0-0.4); Eosinophils Percent Auto 2.5 % (0-4); Hematocrit 24.9 % (42.0-52.0); Hemoglobin 8.7 g/dl (14.0-18.0); Imm Gran Abs Auto 0.02 X10*3/uL (0.00-0.03); Imm Gran Pct Auto 0.8 % (0.0-0.4); Lymphocytes Absolute Auto 0.4 X10*3/uL (1.2-4.9); Lymphocytes Percent Auto 16.2 % (20-40); MANUAL DIFF FLAG SCAN; Mean Corpuscular HGB Conc 34.9 g/dl (31.0-36.0); Mean Corpuscular Hemoglobin 27.6 pg (27.0-33.0); Monocytes Absolute Auto 0.1 X10*3/uL (0.1-1.2); Monocytes Percent Auto 4.1 % (2-11); Neutrophils Absolute Auto 1.8 x10*3/uL (2.0-8.3); Platelet Count 119 X10*3/uL (160-400); Red Blood Count 3.15 X10*6/uL (4.60-5.80); Red Cell Distribution Width 13.8 % (11.0-16.0); SCAN SMEAR FLAG 1; White Blood Count 2.4 X10*3/uL (4.8-10.8)
[2024-04-29 06:31] LABS: SLIDE REVIEW VERIFIED
--- NOTE | 2024-04-29 08:13 | PHA.MEDREC ---
Pharmacy Consult ? Medication Reconciliation Pharmacy has completed the medication reconciliation. Spoke with patient at bedside. He confirmed he is not on any medications.
[2024-04-29] MEDS: Calcium Gluconate/NaCl,Iso-Osm 1 GM/50 ML PLAST..BAG IV (08:35)
[2024-04-29] MEDS: vancomycin HCL 1,000 MG in 0.9 % Sodium Chloride 250 ML 270 MG IV (08:35)
--- NOTE | 2024-04-29 09:08 | HE.PHANOTE ---
RE: vanco Patient's creatinine improved and 1000mg Q12H predicted a subtherapeutic AUC; 1000mg dose was given early (0835 vs 1000) so I changed the next 2200 dose to 1250mg Q12H with predicted AUC of 468mg/L and trough of 13.6mg/L. Level to be drawn remains the same 04/30 @0800
[2024-04-29 09:20] LABS: Adenovirus PCR Not Detected (Not Detect.); Bordetella parapertussis PCR Not Detected (Not Detect.); Bordetella pertussis PCR Not Detected (Not Detect.); Chlamydia pneumoniae PCR Not Detected (Not Detect.); Coronavirus 229E PCR Not Detected (Not Detect.); Coronavirus HKU1 PCR Not Detected (Not Detect.); Coronavirus NL63 PCR Not Detected (Not Detect.); Coronavirus OC43 PCR Not Detected (Not Detect.); Human metapneumovirus PCR Not Detected (Not Detect.); Influenza A PCR Not Detected (Not Detect.); Influenza B PCR Not Detected (Not Detect.); Mycoplasma pneumoniae PCR Not Detected (Not Detect.); Parainfluenza 1 PCR Not Detected (Not Detect.); Parainfluenza 2 PCR Not Detected (Not Detect.); Parainfluenza 3 PCR Not Detected (Not Detect.); Parainfluenza 4 PCR Not Detected (Not Detect.); RSV PCR Not Detected (Not Detect.); Rhino/Enterovirus PCR Not Detected (Not Detect.)
[2024-04-29 09:25] LABS: Cortisol Random 14.8 ug/dL
[2024-04-29 09:41] LABS: SARS-CoV-2 PCR Not Detected (Not Detect.)
--- NOTE | 2024-04-29 10:05 | MHC.CLN ---
PT WITH 15% SIGNIFICANT WT LOSS R/T ACUTE ILLNESS WITH CHRONIC POOR PO INTAKE PT WITH ACUTE ILLNESS X 1 MONTH OF UNKNOWN ORIGIN AND FAILED OUT PATIENT TX PT'S WT REMAINS OBESE FOR HT-NO S/S MALNUTRITION AT THIS TIME LABS PENDING IE LYME, HEPATITIS, HIV ETC.. DIET RX: REGULAR-APPROPRIATE PLAN MONITOR PO INTAKE IF PO INTAKE<25% X 3 DAYS; RECOMMEND ADDING NUTRITION SUPPLEMENT TO INCREASE KCALS SEE ALSO FULL CLINICAL NUTRITION ASSESSMENT
[2024-04-29] MEDS: Sulfamethox/Trimeth 800/160 TABLET 1 TAB PO (10:24)
[2024-04-29] MEDS: Lactated Ringers 500 ML IVCONT (12:20)
--- NOTE | 2024-04-29 14:07 | MHC.CM.PN ---
MALE 28 DX SEPSIS He is independent with all activity. He lives with his Mother+Brother. He declined the offer to document a HCP. He will speak with his family regarding his diagnosis (per RN). DP home self care. He will arrange for a family member to provide transportation home. His primary care is @ [address]
[2024-04-29] MEDS: vancomycin HCL 1,250 MG in 0.9 % Sodium Chloride 250 ML 166.67 MG IV (21:27)
--- NOTE | 2024-04-29 22:10 | P.CNID_ITS ---
History of Present Illness Data of Consult Service Date: 04/29/24 Requesting physician: Soledad Lux Primary Care Provider: Unknown Physician HPI Reason for consult: positive HIV screening test He presents with one month of fever,chills and body aches. He has been COVID negative. He has had anal receptive relations with men,no oral concerns. He has not been on Prep He has not had HIV testing recently. He has not had partners last several months. He denies STIs. His partners used protection,condoms. He has no tuberculosis or travel history.. He has screening initial HIV test positive,antibodies and viral load pending. Review of Systems 2 Constitutional: Constitutional: Reports chills, Reports fatigue and Reports fever(s) Endocrine: Endocrine: Reports fatigue PMFSH Past Medical History Medical History Encounter to establish care Family History Family History Father No problems noted. Mother No problems noted. Family history: reviewed and not pertinent Surgical History Surgical History No pertinent past surgical history Social History Social History Household Members: Family Household Members Other:: Mother, brother Housing: House Do you presently have visiting nurse or other home services: No Alcohol intake: never Patient Tobacco Use Status: Never used Tobacco Smoked in Last 30 Days: No e-Cigarette/Vaping Use: Never Used Second Hand Smoke Exposure: No Use of substances other than those prescribed or required for medical reasons: No Currently Displaying Signs/Symptoms of Drug Intoxication Withdrawal: No Have you been hit, kicked, punched, or otherwise hurt by someone within the past year? If so, by whom?: No Do you feel safe in your current relationship?: No Current Relationship Is there a partner from a previous relationship who is making you feel unsafe now?: No Are you made to feel afraid or neglected: No Scientologist Healthcare Practices: None per pt Advance Directives: No Advance Directives Information Provided: No Do you have a plan to hurt others: No Plan Recently lost weight without trying: Yes How much weight loss: Unsure Eating poorly because of decreased appetite: Yes Nutrition screen score: 5 Nutrition Risks: Poor intake 0-25% >4 days Poor oral hygiene: No service: No Current occupational status: employed Current occupational exposures/hazards: No Cognitive needs: No Hearing needs: No Vision needs: No Meds Allergies Allergy/AdvReac Type Severity Reaction Status Date / Time No Known Allergies Allergy Verified 04/28/24 20:38 Active Medications: Current Medications Acetaminophen (Acetaminophen 325 Mg Tablet) 975 mg PO Q6H PRN PRN Reason: Fever Enoxaparin Sodium (Enoxaparin Sodium 40 Mg/0.4 Ml Syringe) 40 mg SUBCUT Q24H [facility]IA Norepinephrine Bitartrate (Levophed) 8 mg in 250 mls @ 0 mls/hr IVCONT .Q0M NATHALIA; Protocol Last Titration: 04/29/24 09:49 Dose: 0 mcg/kg/min, 0 mls/hr Levofloxacin (Levaquin) 750 mg in 150 mls @ 100 mls/hr IV Q24H [facility] Cefepime HCl 1 gm/ Sodium (Chloride) 50 mls @ 100 mls/hr IV Q8H [facility] Last Admin: 04/29/24 21:27 Dose: 100 mls/hr Vancomycin HCl 1,250 mg/ (Sodium Chloride) 250 mls @ 166.667 mls/hr IV Q12H [facility] Last Admin: 04/29/24 21:27 Dose: 166.67 mls/hr Pharmacy Consult (Consult Rx Vancomycin Dosing) 1 each MISCELLANE DAILY PRN PRN Reason: Consult order Trimethoprim/Sulfamethoxazole (Sulfamethox/Trimeth 800/160 Tablet) 1 tab PO DAILY [facility]ATH[facility] Last Admin: 04/29/24 10:24 Dose: 1 tab Physical Exam 2 Vital Signs: Vital Signs: Last Vital Signs Temp 99.9 F 04/29/24 21:52 Pulse 98 04/29/24 21:52 Resp 18 04/29/24 21:52 BP 109/63 04/29/24 21:52 Pulse Ox 100 04/29/24 21:52 O2 Del Method Room Air 04/29/24 21:52 BMI result Body Mass Index 29.8 Const: Other: slight mobile cervical lymphadenopathy eczematous areas hand slight General: cooperative HEENT: Head: Yes normal to inspection Face and sinus: Yes normal facial exam Mouth: Normal oral and palatal mucosa present Teeth and gingiva: d entition normal Eyes: General: appearance normal, both eyes and all related structures P upils: Equal, round and reactive pupils present Resp: Effort & Inspection: normal respiratory effort Cardio: Rate: regular rate Rhythm: regular rhythm GI: Palpation (GI): Soft to palpation and nontender : General: Yes no CVA tenderness Back/Spine/Pelvis: Back: no CVA tenderness Skin: General skin exam: no rashes or lesions noted Neuro: General: moves all extremities Cranial nerves: Yes Equal, round and reactive pupils present Extrem: General: Yes normal to inspection Psych: Appearance: grossly normal Results Labs 04/29/24 05:51 04/29/24 05:51 Labs: Short CBC 04/29/24 Range/Units 05:51 WBC 2.4 L (4.8-10.8) X10*3/uL Hgb 8.7 L D (14.0-18.0) g/dl Hct 24.9 L D (42.0-52.0) % Plt Count 119 L D (160-400) X10*3/uL BMP 04/28/24 04/29/24 20:58 05:51 Sodium 140 141 Potassium 4.0 3.7 Chloride 108 110 H Carbon Dioxide 22 22 BUN 16 15 Creatinine 1.15 0.86 Calcium 9.3 8.3 L D Cardiac Enzymes 04/28/24 Range/Units 20:58 Total Creatine Kinase 72 (38-174) U/L Liver Function 04/28/24 Range/Units 20:58 Total Bilirubin 1.3 H (0.0-1.0) mg/dL AST 54 H (5-37) U/L ALT 25 (0-40) U/L Alkaline Phosphatase 83 (39-117) U/L Albumin 4.0 (3.5-5.0) g/dL Urine 04/29/24 Range/Units 01:06 Urine Color Yellow Urine Appearance Clear Urine pH 8.0 (5.0-9.0) Ur Specific [place] >= 1.030 H (1.005-1.025) Urine Protein Negative (Neg-Trace) mg/dL Urine Glucose (UA) Negative (Negative) mg/dL Assessment and Plan (1) Acute hypotension: Status: Acute (2) Malaise: Status: Acute (3) Fever: Qualifiers: Fever type: unspecified Qualified Code(s): R50.9 - Fever, unspecified Status: Acute Plan Screening HIV test positive. He may have HIV He may have GREG or atypical pneumonia. There is no h/o TB exposure or risk factors except possible HIV. There is no large lyphadenopathy or lung cavities. PJP or GREG risk if low CD4 count. He received Amoxicillin and Ceftin in early April Would await HIV antibody screen and HIV viral load. Increase Bactrim to 2 DS bid if positive for treatment PJP and Prednisone 30 mg bid for a week,15 bid one week and 7.5 bid third week. Check MRSA nares and stop Vancomycin if no bacteremia and nares MRSA negative. May stop Cefepime tomorrow if blood cultures negative and no Pseudomonas seen. Continue Levaquin 750 mg daily for 10 d cover atypical. Check urine Legionella antigen. There is no TB exposure seen so stop respiratory isolation unless anything changes (he has no hemoptysis)
--- NOTE | 2024-04-29 23:18 | P.EN_ITS ---
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
--- NOTE | 2024-04-29 23:18 | PM.EVENT ---
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
[2024-04-30] VITALS (15 sets, daily range): BP systolic 97–130; BP diastolic 47–78; PULSE 76–112; RESP 12–26; TEMP 36.6–37.4; O2SAT 95–100; BMI 29.4
[2024-04-30] MEDS: Acetaminophen 325 MG TABLET 975 MG PO
[2024-04-30] MEDS: levoFLOXacin/D5W 750 MG/150 ML PIGGYBACK 100 MG IV (00:58)
[2024-04-30] MEDS: cefEPime HCl 1 GM in 0.9 % Sodium Chloride 50 ML IV ×3 (05:16→21:50)
[2024-04-30 05:47] LABS: Hemoglobin 8.3 g/dl (14.0-18.0); Mean Corpuscular HGB Conc 34.6 g/dl (31.0-36.0); Mean Corpuscular Hemoglobin 27.4 pg (27.0-33.0); Mean Corpuscular Volume 79.2 fL (80.0-98.0); Mean Platelet Volume 13.1 fL (9.4-12.4); PLT CLUMP 1; Red Blood Count 3.03 X10*6/uL (4.60-5.80); Red Cell Distribution Width 13.8 % (11.0-16.0)
[2024-04-30 05:48] LABS: White Blood Count 2.7 X10*3/uL (4.8-10.8)
[2024-04-30 06:00] LABS: Vancomycin Random 14.9 mcg/mL (15-20)
[2024-04-30 06:01] LABS: Anion Gap 13 (12-20); Blood Urea Nitrogen 12 mg/dL (9-16); Calcium 8.6 mg/dL (8.4-10.2); Carbon Dioxide 19 mmol/L (22-29); Chloride 111 mmol/L (96-108); Creatinine Clr Calc Pharmacy 177.7; Estimated Glomerular Filt Rate > 60; Glucose Random 76 mg/dL (60-115); Magnesium 1.9 mg/dL (1.6-2.6); Phosphorus 4.1 mg/dL (2.7-4.5); Potassium 4.3 mmol/L (3.3-5.1); Sodium 139 mmol/L (135-145)
--- NOTE | 2024-04-30 06:40 | HE.PHANOTE ---
RE: VANCO DOSING Random came back as 14.9. Continue with dose of 1250 mg q12h. Next random is scheduled for 05/01/24 @0800.
[2024-04-30 07:53] LABS: Atypical Lymph Absolute Manual 0.3 x10*3/uL; Atypical Lymphs Percent Manual 12 % (0-6); Band Neutrophils Percent 4 % (3-5); Eosinophils Absolute Manual 0.1 X10*3/uL (0.0-0.4); Eosinophils Percent Manual 2 % (0-4); Lymphocytes Absolute Manual 0.5 X10*3/uL (1.2-4.9); Lymphocytes Percent Manual 17 % (20-40); Monocytes Absolute Manual 0.2 X10*3/uL (0.1-1.2); Monocytes Percent Manual 8 % (2-11); Neutrophils Absolute Manual 1.6 X10*3/uL (2.0-8.3); Neutrophils Percent Manual 57 % (45-73)
[2024-04-30 07:54] LABS: Microcytosis 1+ (5-14) /OIF; Platelet Estimate SLIGHTLY DECREASED (NORMAL); RBC Morphology NOTED
[2024-04-30 07:55] LABS: Acanthocytes 1+ (0-2) /OIF; Platelet Morphology Comment NORMAL; Target Cells 1+ (5-14) /OIF
[2024-04-30 07:56] LABS: Burr Cells 1+ (0-2) /OIF; Tear Drop Cells 1+ (0-2) /OIF
[2024-04-30 07:57] LABS: Polychromasia 2+ (3-5) /OIF
--- NOTE | 2024-04-30 08:07 | PM.CCPN ---
Subjective Subjective Date of Service: 04/30/24 Interval History: no significant overnight events Critical Care Time (minutes): 0 Physical Exam Vital Signs: Vital Signs: Last Vital Signs Temp 98.0 F 04/30/24 05:37 Pulse 77 04/30/24 07:00 Resp 20 04/30/24 07:00 BP 108/67 04/30/24 07:00 Pulse Ox 98 04/30/24 07:00 O2 Del Method Room Air 04/30/24 07:00 O2 Flow Rate 1 04/30/24 05:00 BMI result Body Mass Index 29.4 Const: General: cooperative, healthy appearing, comfortable, no acute distress, well developed, alert, awake and Physically active Orientation/consciousness: patient oriented x3 HEENT: Head: Yes normal to inspection, Yes normocephalic and Yes atraumatic Eyes: General: appearance normal, both eyes and all related structures Neck: Neck: Yes normal visual inspection, Yes full ROM, Yes no meningeal signs, Yes trachea midline and Yes supple Chest: Chest palpation & inspection: normal inspection of the chest Resp: Other: no appreciable rales, rhonchi, wheezing Effort & Inspection: normal respiratory effort Cardio: Rate: regular rate Rhythm: regular rhythm GI: Inspection: Yes normal to inspection, No Abdominal wall edema and No distended Palpation (GI): Soft to palpation, not firm, nontender, no guarding and not rigid Skin: General skin exam: no rashes or lesions noted Neuro: General: patient oriented x3, tone normal, moves all extremities, no meningeal signs and no focal motor deficits Extrem: General: Yes normal to inspection, Yes full ROM, Yes capillary refill normal and Yes no clubbing, cyanosis or edema Psych: Appearance: grossly normal Objective Data Labs 04/30/24 05:25 04/30/24 05:25 Labs: Laboratory Results - last 24 hr 04/29/24 04/29/24 04/29/24 03:49 05:51 08:27 WBC RBC Hgb Hct MCV MCH MCHC RDW Plt Count MPV Immature Gran % (Auto) Neut % (Auto) Lymph % (Auto) Lawrence % (Auto) Eos % (Auto) Baso % (Auto) Lymph # (Auto) Lawrence # (Auto) Eos # (Auto) Baso # (Auto) Abs Immat Gran (auto) Absolute Neuts (auto) Absolute Nucleated RBC Nucleated RBC % (auto) Neutrophils % (Manual) Band Neutrophils % Lymphocytes % (Manual) Atypical Lymphs % (Man) Monocytes % (Manual) Eosinophils % (Manual) Abs Neuts (Manual) Lymphocytes # (Manual) Atyp Lymphs # (Manual) Monocytes # (Manual) Eosinophils # (Manual) Platelet Estimate Plt Morphology Comment RBC Morphology Polychromasia Microcytosis Target Cells Tear Drop Cells [place] Cells Acanthocytes (Spur) Smear Path Review SEE NOTE Sodium Potassium Chloride Carbon Dioxide Anion Gap BUN Creatinine Estim Creat Clear Calc Estimated GFR Random Glucose Calcium Phosphorus Magnesium TSH 1.90 Random Cortisol 14.8 Random Vancomycin Respiratory Panel Lewis See Note Adenovirus (Rapid PCR) Not Detected B.pert (TEM-PCR) Not Detected B.parapertussis DNA PCR Not Detected C. pneumoniae DNA (PCR) Not Detected Coronavirus OC43 (PCR) Not Detected Coronavirus HKU1 (PCR) Not Detected Coronavirus 229E (PCR) Not Detected Coronavirus NL63 (PCR) Not Detected Human Metapneumovir PCR Not Detected Influenza A (RT-PCR) Not Detected Influenza B (RT-PCR) Not Detected M. pneumoniae (PCR) Not Detected Parainfluenza 1 (PCR) Not Detected Parainfluenza 2 (PCR) Not Detected Parainfluenza 3 (PCR) Not Detected Parainfluenza 4 (PCR) Not Detected RSV (PCR) Not Detected Entero/Rhino (PCR) Not Detected SARS-CoV-2 RNA (RT-PCR) Not Detected 04/30/24 05:25 WBC 2.7 L RBC 3.03 L Hgb 8.3 L Hct 24.0 L MCV 79.2 L MCH 27.4 MCHC 34.6 RDW 13.8 Plt Count Not Reportable MPV 13.1 H Immature Gran % (Auto) Cancelled Neut % (Auto) Cancelled Lymph % (Auto) Cancelled Lawrence % (Auto) Cancelled Eos % (Auto) Cancelled Baso % (Auto) Cancelled Lymph # (Auto) Cancelled Lawrence # (Auto) Cancelled Eos # (Auto) Cancelled Baso # (Auto) Cancelled Abs Immat Gran (auto) Cancelled Absolute Neuts (auto) Cancelled Absolute Nucleated RBC 0.000 Nucleated RBC % (auto) 0.0 Neutrophils % (Manual) 57 Band Neutrophils % 4 Lymphocytes % (Manual) 17 L Atypical Lymphs % (Man) 12 H Monocytes % (Manual) 8 Eosinophils % (Manual) 2 Abs Neuts (Manual) 1.6 L Lymphocytes # (Manual) 0.5 L Atyp Lymphs # (Manual) 0.3 Monocytes # (Manual) 0.2 Eosinophils # (Manual) 0.1 Platelet Estimate SLIGHTLY DECREASED Plt Morphology Comment NORMAL RBC Morphology NOTED Polychromasia 2+ (3-5) Microcytosis 1+ (5-14) Target Cells 1+ (5-14) Tear Drop Cells 1+ (0-2) [place] Cells 1+ (0-2) Acanthocytes (Spur) 1+ (0-2) Smear Path Review Sodium 139 Potassium 4.3 Chloride 111 H Carbon Dioxide 19 L Anion Gap 13 BUN 12 Creatinine 0.66 Estim Creat Clear Calc 177.7 Estimated GFR > 60 Random Glucose 76 Calcium 8.6 Phosphorus 4.1 Magnesium 1.9 TSH Random Cortisol Random Vancomycin 14.9 L Respiratory Panel Lewis Adenovirus (Rapid PCR) B.pert (TEM-PCR) B.parapertussis DNA PCR C. pneumoniae DNA (PCR) Coronavirus OC43 (PCR) Coronavirus HKU1 (PCR) Coronavirus 229E (PCR) Coronavirus NL63 (PCR) Human Metapneumovir PCR Influenza A (RT-PCR) Influenza B (RT-PCR) M. pneumoniae (PCR) Parainfluenza 1 (PCR) Parainfluenza 2 (PCR) Parainfluenza 3 (PCR) Parainfluenza 4 (PCR) RSV (PCR) Entero/Rhino (PCR) SARS-CoV-2 RNA (RT-PCR) Microbiology Microbiology Results: Microbiology 04/28/24 21:06 Blood - Venous Blood Culture - Preliminary No growth after 24 hours. 04/28/24 20:58 Blood - Venous Blood Culture - Preliminary No growth after 24 hours. Progress Note: A&P Assessment and plan (1) Acute hypotension: Status: Acute (2) HIV antibody positive: Status: Acute Plan Patient is a 28 Y M otherwise healthy male, initially presenting to emergency department on 04/28 with subacute unintentional weight loss and general malaise, found to be hypotensive and HIV reactive, though no other overt etiology of infection, admitted to ICU for peripheral vasopressors w/ interval improvement N: no acute issues CV: hypotension, s/p peripheral norepinephrine gtt, resolved R: no acute issues; initially on airborne precautions, though reassured by infectious disease GI: regular diet : no acute issues H: pancytopenia; to closely monitor ID: HIV reactive; to follow-up confirmatory tests, CD4 counts; on empiric vancomycin, cefepime, levofloxacin, and bactrim; appreciate ID recommendations E: no acute issues P: no acute issues Quality Stroke Does the patient have a stroke diagnosis?: No VTE Prior VTE?: No VTE Risk Level:: Medical - moderate - high VTE Device Contraindication: N/A - Device Ordered VTE Drug Contraindication: N/A - Med Ordered
[2024-04-30 08:21] LABS: Platelet Count 108 X10*3/uL (160-400)
[2024-04-30] MEDS: Enoxaparin Sodium 40 MG/0.4 ML SYRINGE SUBCUT (09:55)
[2024-04-30] MEDS: Sulfamethox/Trimeth 800/160 TABLET 1 TAB PO (09:56)
[2024-04-30] MEDS: vancomycin HCL 1,250 MG in 0.9 % Sodium Chloride 250 ML 166.7 MG IV ×2 (09:56→22:34)
[2024-04-30 14:13] LABS: MRSA Nasal PCR NEGATIVE (Negative); SA Nasal PCR POSITIVE (Negative)
[2024-04-30 18:34] LABS: A. Phagocytphilium DNA,RT-PCR NOT DETECTED (NOT DETECTED); Babesia Microti DNA, RT-PCR NOT DETECTED (NOT DETECTED); Borrelia Miyamotoi,DNA RT-PCR NOT DETECTED (NOT DETECTED); E.Chaffeensis DNA RT-PCR NOT DETECTED (NOT DETECTED); Lyme(Borrelia ssp)DNA RT-PCR NOT DETECTED (NOT DETECTED)
[2024-05-01] VITALS: BP 104/58; PULSE 87; RESP 18; TEMP 36.9; O2SAT 100
[2024-05-01] MEDS: levoFLOXacin/D5W 750 MG/150 ML PIGGYBACK 100 MG IV (01:37)
[2024-05-01 04:00] VITALS: BP 115/60; PULSE 79; RESP 18; TEMP 36.5; O2SAT 97
[2024-05-01] MEDS: cefEPime HCl 1 GM in 0.9 % Sodium Chloride 50 ML IV (06:28)
[2024-05-01 08:00] VITALS: BP 111/64; PULSE 78; RESP 18; TEMP 36.6; O2SAT 100
[2024-05-01] MEDS: Enoxaparin Sodium 40 MG/0.4 ML SYRINGE SUBCUT (08:08)
[2024-05-01] MEDS: Sulfamethox/Trimeth 800/160 TABLET 1 TAB PO (08:08)
--- NOTE | 2024-05-01 09:52 | HO.PM.IMPN ---
Subjective Subjective Date of Service: 05/01/24 Interval History: feeling better Physical Exam Vital Signs: Vital Signs: Last Vital Signs Temp 98 F 05/01/24 08:00 Pulse 78 05/01/24 08:00 Resp 18 05/01/24 08:00 BP 111/64 05/01/24 08:00 Pulse Ox 100 05/01/24 08:00 O2 Del Method Room Air 05/01/24 08:00 O2 Flow Rate 1 04/30/24 05:00 BMI result Body Mass Index 29.4 General: AO X 3, no acute distress Resp: CTA bilateral, no accessory muscles used CVS: S1,S2,RRR GI: soft, non tender, non distended Neuro: motor grossly intact, alert Psych: appropriate affect, appropriate insight Objective Data Active Medications Acetaminophen (Acetaminophen 325 Mg Tablet) 975 mg PO Q6H PRN PRN Reason: Fever Last Admin: 04/30/24 00:00 Dose: 975 mg Documented By: JULIANNA Enoxaparin Sodium (Enoxaparin Sodium 40 Mg/0.4 Ml Syringe) 40 mg SUBCUT Q24H [facility] Last Admin: 05/01/24 08:08 Dose: 40 mg Documented By: HESHAM Levofloxacin (Levaquin) 750 mg in 150 mls @ 100 mls/hr IV Q24H [facility] Last Infusion: 05/01/24 03:07 Dose: Infused Documented By: DEIDRA Trimethoprim/Sulfamethoxazole (Sulfamethox/Trimeth 800/160 Tablet) 1 tab PO DAILY [facility] Last Admin: 05/01/24 08:08 Dose: 1 tab Documented By: HESHAM Labs 04/30/24 05:25 04/30/24 05:25 Labs: Laboratory Results - last 24 hr 04/28/24 04/30/24 22:10 12:05 Nasal Screen MRSA (PCR) NEGATIVE Nasal S. aureus Screen POSITIVE A Nasal MRSA/S.aureus Interp SEE NOTE A.phagocytophil DNA PCR NOT DETECTED Babesia microti DNA PCR NOT DETECTED Borrelia sp DNA (PCR) NOT DETECTED Borrelia miyamotoi (PCR) NOT DETECTED E.chaffeensis DNA (PCR) NOT DETECTED Tick-borne Disease PCR SEE NOTE Microbiology Microbiology Results: Microbiology 04/28/24 21:06 Blood Culture - Preliminary Blood - Venous No growth after 48 hours. 04/28/24 20:58 Blood Culture - Preliminary Blood - Venous No growth after 48 hours. Assessment and Plan (1) HIV antibody positive: Status: Acute Plan 28M admitted to ICU 04/29/24 for septic shock in setting of new diagnosis of HIV, treated with broad spectrum antibiotics, weaned off pressors and downgraded 04/30/24 septic shock in immunocompromised patient due to new HIV sepsis resolved, cultures negative, follow up hiv viral load - if positive will double bactrim and start prednisone taper continue bactrim and levaquin will dc vanc and cefepime and monitor ID following dvt prophylaxis - lovenox full code reason for continued hospitalization:monitoring after deescalation of antibiotics Quality Stroke Does the patient have a stroke diagnosis?: No VTE Prior VTE?: No VTE Risk Level:: Medical - moderate - high VTE Device Contraindication: N/A - Device Ordered VTE Drug Contraindication: N/A - Med Ordered
[2024-05-01 12:00] VITALS: BP 118/58; PULSE 76; RESP 18; TEMP 36.6; O2SAT 99
[2024-05-01 15:53] VITALS: BP 119/58; PULSE 72; RESP 18; TEMP 36.6; O2SAT 99
[2024-05-01 19:22] VITALS: BP 123/65; PULSE 82; RESP 20; TEMP 36.8; O2SAT 100
[2024-05-02] VITALS (7 sets, daily range): BP systolic 106–123; BP diastolic 56–67; PULSE 69–77; RESP 18–20; TEMP 36.3–36.9; O2SAT 98–100
[2024-05-02] MEDS: levoFLOXacin/D5W 750 MG/150 ML PIGGYBACK 100 MG IV (00:31)
[2024-05-02 07:07] LABS: Anion Gap 11 (12-20); Blood Urea Nitrogen 12 mg/dL (9-16); Calcium 8.8 mg/dL (8.4-10.2); Carbon Dioxide 22 mmol/L (22-29); Chloride 110 mmol/L (96-108); Creatinine Clr Calc Pharmacy 167.5; Estimated Glomerular Filt Rate > 60; Glucose Fasting 79 mg/dL (60-99); Potassium 3.8 mmol/L (3.3-5.1); Sodium 139 mmol/L (135-145)
[2024-05-02 07:16] LABS: Hematocrit 25.4 % (42.0-52.0); Hemoglobin 8.7 g/dl (14.0-18.0); Mean Corpuscular HGB Conc 34.3 g/dl (31.0-36.0); Mean Corpuscular Hemoglobin 27.4 pg (27.0-33.0); Mean Corpuscular Volume 80.1 fL (80.0-98.0); Mean Platelet Volume 12.2 fL (9.4-12.4); Platelet Count 157 X10*3/uL (160-400); Red Blood Count 3.17 X10*6/uL (4.60-5.80); Red Cell Distribution Width 13.9 % (11.0-16.0); White Blood Count 2.6 X10*3/uL (4.8-10.8)
[2024-05-02] MEDS: Sulfamethox/Trimeth 800/160 TABLET 1 TAB PO (08:31)
[2024-05-02] MEDS: Enoxaparin Sodium 40 MG/0.4 ML SYRINGE SUBCUT (08:31)
--- NOTE | 2024-05-02 08:38 | P.PNIM_ITS ---
Subjective Subjective Date of Service: 05/02/24 Interval History: feeling better Physical Exam 2 Vital Signs: Vital Signs: Last Vital Signs Temp 97.6 F 05/02/24 07:59 Pulse 77 05/02/24 07:59 Resp 20 05/02/24 07:59 BP 114/60 05/02/24 07:59 Pulse Ox 99 05/02/24 07:59 O2 Del Method Room Air 05/02/24 07:59 O2 Flow Rate 1 04/30/24 05:00 BMI result Body Mass Index 29.4 General: AO X 3, no acute distress Resp: CTA bilateral, no accessory muscles used CVS: S1,S2,RRR GI: soft, non tender, non distended Neuro: motor grossly intact, alert Psych: appropriate affect, appropriate insight Objective Data Active Medications Acetaminophen (Acetaminophen 325 Mg Tablet) 975 mg PO Q6H PRN PRN Reason: Fever Last Admin: 04/30/24 00:00 Dose: 975 mg Documented By: JULIANNA Enoxaparin Sodium (Enoxaparin Sodium 40 Mg/0.4 Ml Syringe) 40 mg SUBCUT Q24H [facility] Last Admin: 05/02/24 08:31 Dose: 40 mg Documented By: HESHAM Levofloxacin (Levaquin) 750 mg in 150 mls @ 100 mls/hr IV Q24H [facility] Last Infusion: 05/02/24 02:13 Dose: Infused Documented By: [place] Trimethoprim/Sulfamethoxazole (Sulfamethox/Trimeth 800/160 Tablet) 1 tab PO DAILY [facility] Last Admin: 05/02/24 08:31 Dose: 1 tab Documented By: HESHAM Labs 05/02/24 05:59 05/02/24 05:59 Labs: Laboratory Results - last 24 hr 05/02/24 05:59 MCV 80.1 MCH 27.4 MCHC 34.3 RDW 13.9 Plt Count 157 L D MPV 12.2 Absolute Nucleated RBC 0.000 Nucleated RBC % (auto) 0.0 Anion Gap 11 L Estim Creat Clear Calc 167.5 Estimated GFR > 60 Fasting Glucose 79 Calcium 8.8 Assessment and Plan (1) HIV antibody positive: Status: Acute Plan 28M admitted to ICU 04/29/24 for septic shock in setting of new diagnosis of HIV, treated with broad spectrum antibiotics, weaned off pressors and downgraded 04/30/24 septic shock in immunocompromised patient due to new HIV sepsis resolved, cultures negative, follow up hiv viral load - if positive will double bactrim and start prednisone taper continue bactrim and levaquin dced vanc and cefepime on 05/01/2024, remains afebrile ID following dvt prophylaxis - lovenox full code reason for continued hospitalization:monitoring after deescalation of antibiotics Quality Stroke Does the patient have a stroke diagnosis?: No VTE Prior VTE?: No VTE Risk Level:: Medical - moderate - high VTE Device Contraindication: N/A - Device Ordered VTE Drug Contraindication: N/A - Med Ordered
--- NOTE | 2024-05-02 10:37 | MHC.CLN ---
F/U PO INTAKE FOLLOWS: 25, 0, 75% DIET RX: REGULAR-APPROPRIATE CONTINUE TO MONITOR PO INTAKE
[2024-05-02 10:42] LABS: TS Negative Control Passed; TS Panel A 0; TS Panel B 0; TS Positive Control Passed; TSpotTB Negative (Negative)
--- NOTE | 2024-05-02 14:21 | MHC.CM.PN ---
Patient is not yet medically cleared for dc (IV Levaquin); home is the goal and CM will continue to follow.
[2024-05-02 16:13] LABS: HIV 1 Antibody POSITIVE (NEGATIVE); HIV 2 Antibody NEGATIVE (NEGATIVE)
[2024-05-02 17:33] LABS: Lyme Abs Screen <0.90 index
[2024-05-03] MEDS: levoFLOXacin/D5W 750 MG/150 ML PIGGYBACK 100 MG IV (00:02)
[2024-05-03 02:33] LABS: HIV RNA PCR Qn Copies 386000 copies/mL (NOT DETECTED); HIV RNA PCR Qn Log Copies 5.59 (NOT DETECTED)
[2024-05-03 03:42] VITALS: BP 118/56; PULSE 73; RESP 20; TEMP 36.2; O2SAT 97
[2024-05-03 08:00] VITALS: BP 103/52; PULSE 77; RESP 16; TEMP 36.1; O2SAT 98
[2024-05-03] MEDS: Enoxaparin Sodium 40 MG/0.4 ML SYRINGE SUBCUT (09:11)
[2024-05-03] MEDS: Sulfamethox/Trimeth 800/160 TABLET 1 TAB PO (09:12)
--- NOTE | 2024-05-03 10:12 | PM.DS ---
DS: Providers Provider Date of Service: 05/03/24 Date of admission: 04/29/24 01:13 Date of discharge: 05/03/24 Primary care physician: Unknown Physician Consults: 04/29/24 06:50 Consult to Infectious Diseases Stat Consulting Provider: [facility] Reason for consultation: New HIV Has provider been notified: No DS: Diagnosis Discharge Diagnosis (1) HIV antibody positive: Status: Acute DS: Summary Hospital Course Hospital Course: from initial hpi: 28 yo male with PMH of eczema who presented to the emergency room with? cough, fever, chills, and body aches that began approximately 1 month ago. He was treated with? a course of amoxicillin and then Ceftin for both acute otitis media and acute bronchitis? with no change in condition. He denies any hx of known immunocompromise. He denies IVDA.? He reports having sex with men but uses condoms. He has never had an HIV test. He has no indwelling hardware. He denies night sweats but has lost weight. He reports decreased fluid intake and has had loose stools. No known tick bites, no issues or rectal pain/discomfort. He denies lesions anywhere or rash other than typical eczema.? His appetite is poor and he has lost a significant amount of weight without trying over the last 6 months, however he is not sure exactly how much. On arrival to the ER, his BP was 85/57, heart rate 130, respiratory rate 24, O2 sat 97% on room air.? He was febrile with temp 100.9 F. Laboratory data significant for WBC 4.7 with? 20% bands, platelet 165 (263 ten days ago) T bili 1.3, AST 54, total protein 8.6, lactic acid 1.8, procalcitonin 4.93, UA negative, influenza A&B, RSV, COVID, group a strep all negative. Monoscreen negative. Imaging: ? Chest x-ray unremarkable. CT showed small areas of nodular infiltrative changes in the right upper lobe as well as bilateral superior segment lower lobes. Nonspecific mediastinal, hilar, axillary, retroperitoneal, and groin lymphadenopathy.? Prominent fluid-filled segments? of small and large bowel.? Borderline appendix with no significant periappendiceal infiltration. ED course:? The patient received a total of 3574 mL crystalloids, 200 mL colloid, a total of 1625 mg? acetaminophen, ibuprofen 600 mg, ceftriaxone 1 g, vancomycin 2 g, levofloxacin 750 mg.? He became hypotensive and was started on a Norepinephrine drip. hospital course: Patient was admitted to ICU for septic shock and immunocompromise patient due to new diagnosis of HIV with unclear source of infection. He was treated with broad-spectrum antibiotics (vancomycin, cefepime, Levaquin, Bactrim), sepsis resolved, cultures remained negative, HIV viral load was over 300,000, was seen by infectious disease who recommended 10 days levofloxacin, 21 days of Bactrim double-strength bid, 3 week prednisone taper and close follow up outpatient. Patient is feeling back to baseline and will be discharged home. Time Attestation Discharge Coordination Time (in mins): 34 Quality: Safe Use of Opioids Does Pt have an Active Cancer Diagnosis on the Problem List?: No Quality: Stroke Does the patient have a stroke diagnosis?: No Physical Exam Vital Signs: Vital Signs: Last Vital Signs Temp 97.0 F 05/03/24 08:00 Pulse 77 05/03/24 08:00 Resp 16 05/03/24 08:00 BP 103/52 L 05/03/24 08:00 Pulse Ox 98 05/03/24 08:00 O2 Del Method Room Air 05/03/24 08:00 O2 Flow Rate 1 04/30/24 05:00 BMI result Body Mass Index 29.4 General: AO X 3, no acute distress Resp: CTA bilateral, no accessory muscles used CVS: S1,S2,RRR GI: soft, non tender, non distended Neuro: motor grossly intact, alert Psych: appropriate affect, appropriate insight DS: Data Data Completed and Pending Labs on day of discharge: Laboratory Results - last 24 hr 04/28/24 04/28/24 04/29/24 21:17 22:10 05:51 Lyme Screen IgG & IgM <0.90 HIV-1 Antibody POSITIVE A HIV-1 RNA copies/mL HIV-1 RNA logcopies/mL HIV-1 RNA, Qual (TMA) TNP HIV-2 Antibody NEGATIVE TB Test (T-Spot) Com Negative TB Test Nil Control Passed TB Test Panel A 0 TB Test Panel B 0 TB Test Positive Cntrl Passed 04/29/24 08:27 Lyme Screen IgG & IgM HIV-1 Antibody HIV-1 RNA copies/mL [id number] H HIV-1 RNA logcopies/mL 5.59 H HIV-1 RNA, Qual (TMA) HIV-2 Antibody TB Test (T-Spot) Com TB Test Nil Control TB Test Panel A TB Test Panel B TB Test Positive Cntrl Preliminary micro results at discharge 04/28/24 21:06 Blood Culture - Preliminary Blood - Venous No growth after 48 hours. 04/28/24 20:58 Blood Culture - Preliminary Blood - Venous No growth after 48 hours. Discharge Plan Discharge Anticipated Discharge Date/Time: 05/03/24 10:07 Patient Disposition: Home, Self-Care Discharge Diagnosis: septic shock, hiv Referrals: Leslie Myrick MD [Physician] - 1 Day Physician,Anurag J [Primary Care Provider] - 1 Week Discharge Medications: New sulfamethoxazole-trimethoprim 800-160 mg Tablet 2 tab PO BID 21 Days Qty: 84 0RF levofloxacin 750 mg Tablet 750 mg PO Q24H Qty: 7 0RF prednisone 10 mg tablet See Taper PO DIRECTED Qty: 70 0RF Taper: Prednisone 30 mg 2 times a day for 7 Days and 0 Hour 15 mg 2 times a day for 7 Days and 0 Hour 7.5 mg 2 times a day for 7 Days and 0 Hour Rx Instructions: see taper instructions Discontinued cefuroxime axetil 500 mg tablet 500 mg PO BID 7 Days Qty: 14 0RF Discharge Orders: Discharge Order (Routine); Ordered 05/03/24 Ordered By: Alessandro Mcgrath Diet: Advance to usual diet Activity on Discharge: As tolerated Stand Alone Forms: Patient Portal Discharge page Print Language: Korean Care Plan Goals: manage hiv Health Concerns: hiv Plan of Treatment: bactrim for 3 weeks, prednisone taper as directed, levaquin 7 more days follow up with Dr. Myrick tomorrow may 04, 2024 any time between 1pm-330pm Assessment: see above
--- NOTE | 2024-05-03 10:24 | MHC.CM.PN ---
Patient has been medically cleared for dc to home today, self care.
[2024-05-03 11:41] VITALS: BP 115/50; PULSE 81; RESP 20; TEMP 36.1; O2SAT 97
[2024-05-04 15:59] LABS: Absolute CD3 Count 299 cells/uL (840-3060); Absolute CD4 Count 10 cells/uL (490-1740); Absolute CD8 Count 277 cells/uL (180-1170); Absolute Lymphocytes 378 cells/uL (850-3900); CD4 CD8 Ratio 0.04 (0.86-5.00); Percent CD3 Cells 79 % (57-85); Percent CD4 Cells 3 % (30-61); Percent CD8 Cells 73 % (12-42)
[2024-05-05 05:58] LABS: Legionella Ag Urine Not Detected (Not Detected)
== END 2024-05-03 11:45 | disposition home or self-care (01) | DRG 720 ==
LOC: HO.ED 04-29 00:32 → HO.EDOVER 04-29 01:17 → HO.ICU 04-29 03:34 → HO.IMC 04-30 11:30
PROVIDERS: Internal Medicine Critical Care Medicine; Physician Assistant; Admitting Provider Nurse Practitioner Family; Emergency Provider Emergency Medicine; Visit Provider Internal Medicine
DX: A41.9 Sepsis, unspecified organism (principal); R65.21 Severe sepsis with septic shock; D61.818 Other pancytopenia; D64.9 Anemia, unspecified; E66.9 Obesity, unspecified; Z21 Asymptomatic human immunodeficiency virus [HIV] infection status; Z68.29 Body mass index [BMI] 29.0-29.9, adult; Z20.822 Contact with and (suspected) exposure to COVID-19
CPT/HCPCS: 0241U; 36415; 71045; 71260; 74177; 80048; 80053; 80202; 80307; 81003; 82533; 82550; 83605; 83615; 83735; 84100; 84145; 84443; 85007; 85025; 85027; 86308; 86359; 86360; 86481; 86617; 86618; 86701; 86702; 86704; 86706; 86709; 86803; 87040; 87340; 87389; 87449; 87468; 87469; 87478; 87484; 87491; 87536; 87591; 87633; 87640; 87641; 87651; 87798; 93005; 99285; J0613; J0692; J0696; J1644; J1650; J1956; J3370; J3371; J7120; P9047; Q9967

== ENCOUNTER → 2024-04-29 01:13 | Outpatient (BNV) | payer BC, SELFPAY | PROVIDERS: Admitting Provider Nurse Practitioner Family; Emergency Provider Emergency Medicine; Visit Provider Nurse Practitioner Family | DX: I95.9 Hypotension, unspecified (principal); R53.81 Other malaise; R50.9 Fever, unspecified; D72.825 Bandemia; D64.9 Anemia, unspecified | CPT/HCPCS: 99223; 99233 ==

== ENCOUNTER → 2024-04-29 01:13 | Outpatient (BNV) | payer BC, SELFPAY | PROVIDERS: Admitting Provider Nurse Practitioner Family; Emergency Provider Emergency Medicine; Visit Provider Internal Medicine | DX: A41.9 Sepsis, unspecified organism (principal); R65.21 Severe sepsis with septic shock; Z21 Asymptomatic human immunodeficiency virus [HIV] infection status | CPT/HCPCS: 99232; 99239 ==

== ENCOUNTER → 2024-04-29 01:13 | Outpatient (BNV) | payer BC, SELFPAY | PROVIDERS: Admitting Provider Nurse Practitioner Family; Emergency Provider Emergency Medicine; Visit Provider Internal Medicine | DX: I95.9 Hypotension, unspecified (principal); R53.81 Other malaise; R50.9 Fever, unspecified | CPT/HCPCS: 99222; 99499 ==

== ENCOUNTER 2024-05-04 15:26 | Outpatient (AMB) | payer BC, SELFPAY ==
--- NOTE | 2024-05-04 15:49 | A.OFFVIS_ITS ---
Vital Signs 05/04/24 15:54 Height 5 ft 8 in Weight 188 lb BMI 28.6 Pulse 72 Pulse Source Pulse Oximeter Temp 97.4 F Temp Source Oral Pulse Oximetry (%) 97 Oxygen Delivery Method Room Air Intake Visit Reasons: Ref.[facility]per DR Myrick Allergies No Known Allergies Allergy (Verified 05/04/24 15:55) HPI HPI Ref.[facility]per DR Myrick: Details: mother contact Delilah Saavedra [phone] I had seen him at Hospital and had new HIV diagnosis. He had some nodular areas RUL He has viral load 386,000 and CD4 count 10. PFSH Medical History Encounter to establish care Surgical History No pertinent past surgical history Family History Father No problems noted. Mother No problems noted. Social History Household Members: Family Household Members Other:: Mother, brother Housing: House Do you presently have visiting nurse or other home services: No Alcohol intake: never Patient Tobacco Use Status: Never used Tobacco e-Cigarette/Vaping Use: Never Used Second Hand Smoke Exposure: No service: No Current occupational status: employed Current occupational exposures/hazards: No Cognitive needs: No Hearing needs: No Vision needs: No Review of Systems Const All systems reviewed & are unremarkable except as noted in HPI and below Physical Exam Vital Signs: Last Vital Signs Temp 97.4 F 05/04/24 15:54 Pulse 72 05/04/24 15:54 Pulse Ox 97 05/04/24 15:54 Oxygen Delivery Method Room Air 05/04/24 15:54 BMI result Body Mass Index 28.6 Const General: cooperative Orientation/consciousness: patient oriented x3 HEENT Head: Yes normal to inspection Mouth: Normal oral and palatal mucosa present Eyes General: appearance normal, both eyes and all related structures Pupils: Equal, round and reactive pupils present Resp Effort & Inspection: normal respiratory effort Cardio Rate: regular rate Rhythm: regular rhythm GI Palpation (GI): Soft to palpation and nontender General: Yes no CVA tenderness Back/Spine/Pelvis Back: no CVA tenderness Skin General skin exam: no rashes or lesions noted Neuro General: patient oriented x3 Cranial nerves: Yes CN's II-XII intact bilaterally and Yes Equal, round and reactive pupils present Extrem General: Yes normal to inspection Psych Appearance: grossly normal Assessment & Plan Assessment & Plan (1) HIV antibody positive: Code(s): Z21 - Asymptomatic human immunodeficiency virus [HIV] infection status Category: Medical Plan: He has to finish 21 d Bactrim 2 DS bid. Finish Prednisone taper. Consider weekly 500 mg Zmax until CD4 count over 200. Take Biktarvy. Orders: Orders HIV Genotype 05/04/24 Z21 - Asymptomatic human immunodeficiency virus [HIV] infection status HIV-1 Integrase Genotype 05/04/24 Syphilis Screen 05/04/24 Z21 - Asymptomatic human immunodeficiency virus [HIV] infection status Other Ref Test - Misc 05/04/24 Z21 - Asymptomatic human immunodeficiency virus [HIV] infection status Toxoplasma Ab IgG & IgM 05/04/24 Z21 - Asymptomatic human immunodeficiency virus [HIV] infection status Cytomegalovirus Ab (IgG, IgM) 05/04/24 Z21 - Asymptomatic human immunodeficiency virus [HIV] infection status Medications: New avnvxqvyb-mricjhlt-sexdovq ala 50-200-25 mg (Biktarvy) 1 tab PO DAILY 30 days 30 tabs 2RF Coding Level of Care Code Est Pt Level 3 (00203) Diagnoses HIV antibody positive Z21
[2024-05-04 15:54] VITALS: PULSE 72; TEMP 36.3; O2SAT 97; BMI 28.6
== END 2024-05-04 16:23 | disposition home or self-care (01) ==
LOC: HO.HID 15:26
PROVIDERS: Visit Provider Internal Medicine
DX: Z21 Asymptomatic human immunodeficiency virus [HIV] infection status (principal)
CPT/HCPCS: 99213

== ENCOUNTER 2024-05-04 15:26 | Outpatient (REF) | payer BC, SELFPAY ==
[2024-05-05 04:26] LABS: CT PCR NOT DETECTED (Not Detect.); NG PCR NOT DETECTED (Not Detect.)
[2024-05-05 08:29] LABS: Syphilis Screen Nonreactive (Nonreactive)
[2024-05-05 21:33] LABS: Toxoplasma IgG Antibody <7.20 IU/mL; Toxoplasma IgM Antibody <8.00 AU/mL
[2024-05-06 11:18] LABS: Cytomegalovirus Ab IgM <30.00 AU/mL
[2024-05-14 00:09] LABS: HIV Genotype DETECTED
== END 2024-05-04 15:27 | disposition home or self-care (01) ==
LOC: HO.LAB 15:26
PROVIDERS: Visit Provider Internal Medicine
DX: Z21 Asymptomatic human immunodeficiency virus [HIV] infection status (principal)
CPT/HCPCS: 36415; 86644; 86645; 86777; 86778; 86780; 87491; 87591; 87900; 87901

== ENCOUNTER 2024-05-27 19:28 | Emergency (ER) | payer BC, SELFPAY ==
--- NOTE | ~2024-05-27 | CT_ITS ---
EXAMINATION: CT HEAD WITHOUT CONTRAST CLINICAL INFORMATION: Headache. History of HIV. COMPARISON: None available. TECHNIQUE: Contiguous axial imaging was performed from the skull base to vertex without intravenous administration of contrast. This CT examination was performed using dose optimization techniques as appropriate, variously including the following: *Automated exposure control. *Adjustment of mA and/or kV according to patient size (this includes techniques or standardized protocols for targeted exams where dose is matched to indication/reason for exam; i.e. extremities or head). *Use of iterative reconstruction technique. DLP: 805 mGy-cm FINDINGS: There is no evidence of acute intracranial hemorrhage or edematous territorial infarction. Slater-white matter differentiation is preserved. Scattered hypoattenuation in the periventricular and deep white matter. The ventricles are normal in morphology and size. No evidence for obstructive hydrocephalus. The suprasellar cistern remains widely patent. Normal positioning of the cerebellar tonsils. No abnormal mass effect or midline shift. No extra-axial fluid collections. No acute soft tissue or osseous abnormalities. The mastoid air cells and visualized paranasal sinuses are clear. CT/CT head/brain wo IV con IMPRESSION: 1. No evidence of acute intracranial hemorrhage or edematous territorial infarction. 2. Mild nonspecific white matter disease. Electronically signed by: Julien Noriega DO 05/28/2024 01:44 AM EDT
[2024-05-27 20:04] VITALS: BP 129/79; PULSE 86; RESP 16; TEMP 36.7; O2SAT 97; BMI 27.8
--- NOTE | 2024-05-27 20:04 | ED_ITS ---
HPI - Headache General Chief Complaint: Headache Stated Complaint: migraines Time Seen by Provider: 05/27/24 22:33 Source: patient Mode of arrival: ambulatory Limitations: no limitations History of Present Illness ED Provider: toni DONNELLY Narrative: Patient's newly diagnose HIV bleed CD4 count of 10 on 04/28 on Bictarvy, Zithromax and bactrim comes here for having left-sided headache since discharge on 05/03 no nausea no vomiting no light sensitivity does have dull headache no fever no chills patient did not have any CT scan of the head at the time of last admission Related Data Previous Rx's ?Medication ?Instructions ?Recorded levofloxacin 750 mg tablet 750 mg PO Q24H #7 tabs 05/03/24 prednisone 10 mg tablet See Taper PO DIRECTED #70 tabs 05/03/24 sulfamethoxazole 800 2 tab PO BID 21 days #84 tabs 05/03/24 mg-trimethoprim 160 mg tablet bictegravir 50 mg-emtricitabine 1 tab PO DAILY 30 days #30 tabs 05/04/24 200 mg-tenofovir alafenam 25 mg tablet (Biktarvy) vinhrzwzle-nroipmtgemewe-brplxgns 1 tab PO Q6H PRN haeadace #20 tabs 05/28/24 50 mg-325 mg-40 mg tablet Allergies Allergy/AdvReac Type Severity Reaction Status Date / Time No Known Allergies Allergy Verified 05/27/24 20:09 Review of Systems 2 Review of Systems: Yes all other systems are reviewed and are negative PMFSH Past Medical History Medical History Encounter to establish care Surgical History No pertinent past surgical history Family History Family History Father No problems noted. Mother No problems noted. Social History Social History Household Members: Family Household Members Other:: Mother, brother Housing: House Do you presently have visiting nurse or other home services: No Alcohol intake: never Patient Tobacco Use Status: Never used Tobacco Smoked in Last 30 Days: No e-Cigarette/Vaping Use: Never Used Second Hand Smoke Exposure: No Use of substances other than those prescribed or required for medical reasons: No Advance Directives: No Advance Directives Information Provided: No service: No Current occupational status: employed Current occupational exposures/hazards: No Cognitive needs: No Hearing needs: No Vision needs: No Physical Exam 2 Vital Signs: Vital Signs: Last Vital Signs Temp 98.5 F 05/28/24 01:01 Pulse 85 05/28/24 01:01 Resp 20 05/28/24 01:01 BP 137/86 05/28/24 01:01 Pulse Ox 100 05/28/24 01:01 O2 Del Method Room Air 05/28/24 01:01 BMI result Body Mass Index 27.8 Course Course Course Narrative: This is an RME performed by Liudmila Campbell CNP: Additional HPI, ROS, PE not included below will be deferred to primary provider. Patient is a 28-year-old male who presents emergency department for evaluation, he states over the past week he has been experiencing a left frontal headache daily typically occurring at night. However today the pain started in the morning and has been more constant in nature,, more severe, he has had minimal improvement from acetaminophen, also endorsing pain to the left occipital region. Reports no history of migraines/headaches in the past Denies associated dizziness, lightheadedness, neck pain, neck stiffness, vision changes, chest pain, shortness of breath. Reports that a few weeks ago he began taking Biktarvy and thinks that this may potentially be the cause for the headache Medications Administered Discontinued Medications Generic Name Dose Route Start Last Admin Trade Name Claudio PRN Reason Stop Dose Admin Acetaminophen/Butalbital/Caffeine 1 tab 05/27/24 23:03 05/27/24 23:26 Butalb/Acetamin/Caff 50/325/40 Tablet PO 05/27/24 23:04 1 tab ONCE ONE Administration Medical Decision Making Medical Decision Making MDM Narrative: Patient nonspecific headache responded to Fioricet CT scan of the head is negative for acute will discharge patient home advised to continue his HIV medication and Fioricet for headache Lab Data [facility] Lab Attestation statement: I reviewed the patient's lab results. 05/27/24 21:03 05/27/24 21:02 Labs: Lab Results 05/27/24 05/27/24 Range/Units 21:02 21:03 WBC 2.6 L (4.8-10.8) X10*3/uL RBC 3.74 L (4.60-5.80) X10*6/uL Hgb 11.5 L D (14.0-18.0) g/dl Hct 33.1 L D (42.0-52.0) % MCV 88.5 (80.0-98.0) fL MCH 30.7 (27.0-33.0) pg MCHC 34.7 (31.0-36.0) g/dl RDW 20.4 H (11.0-16.0) % Plt Count 130 L (160-400) X10*3/uL MPV 10.0 (9.4-12.4) fL Immature Gran % (Auto) Cancelled Neut % (Auto) Cancelled Lymph % (Auto) Cancelled Worth % (Auto) Cancelled Eos % (Auto) Cancelled Baso % (Auto) Cancelled Lymph # (Auto) Cancelled Worth # (Auto) Cancelled Eos # (Auto) Cancelled Baso # (Auto) Cancelled Abs Immat Gran (auto) Cancelled Absolute Neuts (auto) Cancelled Absolute Nucleated RBC 0.000 (0.0-0.012) X10*3/uL Nucleated RBC % (auto) 0.0 (0.0-0.2) /100WBC Neutrophils % (Manual) 52 (45-73) % Band Neutrophils % 10 H (3-5) % Lymphocytes % (Manual) 22 (20-40) % Monocytes % (Manual) 4 (2-11) % Eosinophils % (Manual) 11 H (0-4) % Metamyelocytes % 1 % Abs Neuts (Manual) 1.6 L (2.0-8.3) X10*3/uL Lymphocytes # (Manual) 0.6 L (1.2-4.9) X10*3/uL Monocytes # (Manual) 0.1 (0.1-1.2) X10*3/uL Eosinophils # (Manual) 0.3 (0.0-0.4) X10*3/uL Toxic Vacuolation PRESENT Dohle Bodies PRESENT Platelet Estimate NORMAL (NORMAL) Plt Morphology Comment NORMAL RBC Morphology NOTED Microcytosis 1+ (5-14) /OIF Schistocytes 1+ (0-2) /OIF ESR 7 (0-15) MM/HR Sodium 140 (135-145) mmol/L Potassium 3.5 (3.3-5.1) mmol/L Chloride 106 (96-108) mmol/L Carbon Dioxide 24 (22-29) mmol/L Anion Gap 14 (12-20) BUN 19 H (9-16) mg/dL Creatinine 0.71 (0.5-1.4) mg/dL Estim Creat Clear Calc 161.2 Estimated GFR > 60 Random Glucose 78 (60-115) mg/dL Calcium 8.8 (8.4-10.2) mg/dL Total Bilirubin 0.9 (0.0-1.0) mg/dL AST 25 (5-37) U/L ALT 38 (0-40) U/L Alkaline Phosphatase 107 (39-117) U/L C-Reactive Protein 1.67 H (< or = 0.50) mg/dL Total Protein 6.8 (6.5-8.0) g/dL Albumin 3.7 (3.5-5.0) g/dL Influenza Type A (PCR) NEGATIVE (Negative) Influenza Type B (PCR) NEGATIVE (Negative) RSV RNA Qual (PCR) NEGATIVE (Negative) SARS-CoV-2 RNA (RT-PCR) NEGATIVE (Negative) Discharge Plan Discharge Clinical Impression: Headache Patient Disposition: Home, Self-Care Instructions: General Headache (ED) Additional Instructions: Cause the headache is not clear likely stress Take Fioricet for headaches Follow up with your PCP Prescriptions: New jxrjlhnmuk-eawljtpaqxcxk-tycm 50-325-40 mg tablet 1 tab PO Q6H PRN (Reason: haeadace) Qty: 20 0RF No Action sulfamethoxazole-trimethoprim 800-160 mg Tablet 2 tab PO BID 21 Days Qty: 84 0RF levofloxacin 750 mg Tablet 750 mg PO Q24H Qty: 7 0RF prednisone 10 mg tablet See Taper PO DIRECTED Qty: 70 0RF Taper: Prednisone 30 mg 2 times a day for 7 Days and 0 Hour 15 mg 2 times a day for 7 Days and 0 Hour 7.5 mg 2 times a day for 7 Days and 0 Hour Rx Instructions: see taper instructions Biktarvy 50-200-25 mg tablet 1 tab PO DAILY 30 Days Qty: 30 2RF Interventions: ED Discharge Assessment Last Done: 05/28/24 01:01 Discharge Date/Time: 05/28/24 01:02 Print Language: Urdu
[2024-05-27 21:09] LABS: Hematocrit 33.1 % (42.0-52.0); Hemoglobin 11.5 g/dl (14.0-18.0); Mean Corpuscular HGB Conc 34.7 g/dl (31.0-36.0); Mean Corpuscular Hemoglobin 30.7 pg (27.0-33.0); Mean Corpuscular Volume 88.5 fL (80.0-98.0); Platelet Count 130 X10*3/uL (160-400); Red Blood Count 3.74 X10*6/uL (4.60-5.80); Red Cell Distribution Width 20.4 % (11.0-16.0); White Blood Count 2.6 X10*3/uL (4.8-10.8)
[2024-05-27 21:23] LABS: Alanine Aminotransferase 38 U/L (0-40); Albumin Level 3.7 g/dL (3.5-5.0); Alkaline Phosphatase 107 U/L (39-117); Anion Gap 14 (12-20); Aspartate Amino Transferase 25 U/L (5-37); Bilirubin Total 0.9 mg/dL (0.0-1.0); Blood Urea Nitrogen 19 mg/dL (9-16); C Reactive Protein 1.67 mg/dL (< or = 0.50); Calcium 8.8 mg/dL (8.4-10.2); Carbon Dioxide 24 mmol/L (22-29); Chloride 106 mmol/L (96-108); Creatinine Clr Calc Pharmacy 161.2; Estimated Glomerular Filt Rate > 60; Glucose Random 78 mg/dL (60-115); Potassium 3.5 mmol/L (3.3-5.1); Sodium 140 mmol/L (135-145); Total Protein 6.8 g/dL (6.5-8.0)
[2024-05-27 21:45] LABS: Influenza A PCR NEGATIVE (Negative); Influenza B PCR NEGATIVE (Negative); Resp Syncy Virus RNA Qual PCR NEGATIVE (Negative); SARS COV2 PCR INHOUSE NEGATIVE (Negative)
[2024-05-27 21:55] LABS: Neutrophils Percent Manual 52 % (45-73)
[2024-05-27 21:59] LABS: Band Neutrophils Percent 10 % (3-5); Eosinophils Absolute Manual 0.3 X10*3/uL (0.0-0.4); Eosinophils Percent Manual 11 % (0-4); Lymphocytes Absolute Manual 0.6 X10*3/uL (1.2-4.9); Lymphocytes Percent Manual 22 % (20-40); Metamyelocytes Percent 1 %; Monocytes Absolute Manual 0.1 X10*3/uL (0.1-1.2); Monocytes Percent Manual 4 % (2-11); Neutrophils Absolute Manual 1.6 X10*3/uL (2.0-8.3)
[2024-05-27 22:00] LABS: Microcytosis 1+ (5-14) /OIF; RBC Morphology NOTED
[2024-05-27 22:01] LABS: Dohle Bodies PRESENT; Schistocytes 1+ (0-2) /OIF; Toxic Vacuolation PRESENT
[2024-05-27 22:04] LABS: Platelet Estimate NORMAL (NORMAL); Platelet Morphology Comment NORMAL
[2024-05-27 22:38] LABS: Erythrocyte Sedimentation Rate 7 MM/HR (0-15)
[2024-05-27] MEDS: Butalb/Acetamin/Caff 50/325/40 TABLET 1 TAB PO (23:26)
--- NOTE | 2024-05-27 23:41 | PC.NURSE ---
Took over care from Elvin Rogers, medicted per Oct, pt resting in stretcher, no n/v or dizziness at this time.
[2024-05-28 00:36] VITALS: BP 137/86; PULSE 85; RESP 20; TEMP 36.9; O2SAT 100
[2024-05-28 01:01] VITALS: BP 137/86; PULSE 85; RESP 20; TEMP 36.9; O2SAT 100
== END 2024-05-28 01:02 | disposition home or self-care (01) ==
PROVIDERS: Nurse Practitioner Family; Emergency Provider Internal Medicine; PCP Student in an Organized Health Care Education/Training Program
DX: R51.9 Headache, unspecified (principal); Z79.899 Other long term (current) drug therapy; Z03.818 Encounter for observation for suspected exposure to other biological agents ruled out
CPT/HCPCS: 0241U; 36415; 70450; 80053; 85007; 85027; 85652; 86140; 99284

== ENCOUNTER 2024-06-13 10:15 | Outpatient (REF) | payer BC, SELFPAY ==
[2024-06-13 14:08] LABS: MANUAL DIFF FLAG NO
[2024-06-13 14:12] LABS: Eosinophils Absolute Auto 0.1 X10*3/uL (0.0-0.4); Eosinophils Percent Auto 3.4 % (0-4); Hematocrit 37.3 % (42.0-52.0); Hemoglobin 12.6 g/dl (14.0-18.0); Imm Gran Abs Auto 0.03 X10*3/uL (0.00-0.03); Imm Gran Pct Auto 0.8 % (0.0-0.4); Lymphocytes Absolute Auto 2.1 X10*3/uL (1.2-4.9); Lymphocytes Percent Auto 54.3 % (20-40); Mean Corpuscular HGB Conc 33.8 g/dl (31.0-36.0); Mean Corpuscular Hemoglobin 29.6 pg (27.0-33.0); Mean Corpuscular Volume 87.8 fL (80.0-98.0); Mean Platelet Volume 9.9 fL (9.4-12.4); Monocytes Absolute Auto 0.4 X10*3/uL (0.1-1.2); Neutrophils Absolute Auto 1.2 x10*3/uL (2.0-8.3); Neutrophils Percent Auto 31.5 % (45-73); Platelet Count 289 X10*3/uL (160-400); Red Blood Count 4.25 X10*6/uL (4.60-5.80); Red Cell Distribution Width 17.7 % (11.0-16.0); White Blood Count 3.9 X10*3/uL (4.8-10.8)
[2024-06-13 14:35] LABS: Alanine Aminotransferase 13 U/L (0-40); Albumin Level 3.8 g/dL (3.5-5.0); Alkaline Phosphatase 102 U/L (39-117); Anion Gap 12 (12-20); Aspartate Amino Transferase 29 U/L (5-37); Bilirubin Total 0.7 mg/dL (0.0-1.0); Blood Urea Nitrogen 8 mg/dL (9-16); Calcium 9.6 mg/dL (8.4-10.2); Carbon Dioxide 26 mmol/L (22-29); Chloride 106 mmol/L (96-108); Estimated Glomerular Filt Rate > 60; Glucose Random 83 mg/dL (60-115); Potassium 3.8 mmol/L (3.3-5.1); Sodium 140 mmol/L (135-145); Total Protein 8.1 g/dL (6.5-8.0)
[2024-06-13 17:54] LABS: CT PCR NOT DETECTED (Not Detect.); NG PCR NOT DETECTED (Not Detect.)
[2024-06-14 08:26] LABS: Syphilis Screen Nonreactive (Nonreactive)
[2024-06-14 08:36] LABS: HBS Num1 6.26 mIU/mL (0-7.99); HBc Num1 0.27 S/CO (0.00-0.79); HBsAGNum1 0.28 S/CO (0.00-0.99); Hepatitis B Core Antibody Nonreactive (Nonreactive); Hepatitis B Surface Antigen Negative (Negative); ~HepC Num1 0.19 S/CO (0.00-0.79); ~Hepatitis B Surface Antibody NONREACTIVE (Nonreactive); ~Hepatitis C Antibody Nonreactive (Nonreactive)
[2024-06-14 08:40] LABS: Hepatitis A Antibody IgG Nonreactive (Nonreactive); ~Hepatitis A Antibody IgG 0.87 S/CO (0.00-0.99)
[2024-06-14 08:53] LABS: Rubeola IgG (Measles) >300.00 AU/mL
[2024-06-15 06:44] LABS: Toxoplasma IgG Antibody <7.20 IU/mL; Toxoplasma IgM Antibody <8.00 AU/mL
[2024-06-15 16:39] LABS: HIV RNA PCR Qn Copies 84 copies/mL (NOT DETECTED); HIV RNA PCR Qn Log Copies 1.92 (NOT DETECTED)
[2024-06-16 05:09] LABS: TS Negative Control Passed; TS Panel A 0; TS Panel B 0; TS Positive Control Passed; TSpotTB Negative (Negative)
[2024-06-16 18:49] LABS: Absolute CD3 Count 1701 cells/uL (840-3060); Absolute CD4 Count 119 cells/uL (490-1740); Absolute CD8 Count 1582 cells/uL (180-1170); Absolute Lymphocytes 2128 cells/uL (850-3900); CD4 CD8 Ratio 0.07 (0.86-5.00); Percent CD3 Cells 80 % (57-85); Percent CD4 Cells 6 % (30-61); Percent CD8 Cells 74 % (12-42)
== END 2024-06-13 10:16 | disposition home or self-care (01) ==
LOC: HO.CHCLDS 10:15
PROVIDERS: Visit Provider Internal Medicine
DX: Z21 Asymptomatic human immunodeficiency virus [HIV] infection status (principal)
CPT/HCPCS: 36415; 80053; 85025; 86359; 86360; 86481; 86704; 86706; 86708; 86735; 86762; 86765; 86777; 86778; 86780; 86787; 86803; 87340; 87491; 87536; 87591

== ENCOUNTER 2024-06-23 13:28 | Outpatient (REF) | payer BC, SELFPAY ==
[2024-06-25 07:18] LABS: C. trachomatis RNA TMA NOT DETECTED (NOT DETECTED); N. gonorrhoeae RNA TMA NOT DETECTED (NOT DETECTED)
[2024-06-28 05:34] LABS: C.Trachomatis RNA TMA, Rectal NOT DETECTED; N.Gonorrhoeae RNA TMA, Rectal NOT DETECTED
[2024-06-28 05:50] LABS: C. Trachomatis RNA TMA, Throat NOT DETECTED; N. gonorrhoeae RNA TMA, Throat NOT DETECTED
== END 2024-06-23 13:29 | disposition home or self-care (01) ==
LOC: HO.HHCLNP 13:28
PROVIDERS: Visit Provider Internal Medicine
DX: Z21 Asymptomatic human immunodeficiency virus [HIV] infection status (principal)
CPT/HCPCS: 87491; 87591

== ENCOUNTER 2024-09-07 09:22 | Outpatient (REF) | payer BC, SELFPAY ==
[2024-09-07 14:01] LABS: MANUAL DIFF FLAG NO
[2024-09-07 14:06] LABS: Basophils Percent Auto 0.2 % (0-2); Eosinophils Absolute Auto 0.1 X10*3/uL (0.0-0.4); Eosinophils Percent Auto 3.4 % (0-4); Hematocrit 44.4 % (42.0-52.0); Hemoglobin 15.4 g/dl (14.0-18.0); Imm Gran Abs Auto 0.02 X10*3/uL (0.00-0.03); Imm Gran Pct Auto 0.5 % (0.0-0.4); Lymphocytes Absolute Auto 1.7 X10*3/uL (1.2-4.9); Lymphocytes Percent Auto 41.8 % (20-40); Mean Corpuscular HGB Conc 34.7 g/dl (31.0-36.0); Mean Corpuscular Hemoglobin 29.4 pg (27.0-33.0); Mean Corpuscular Volume 84.7 fL (80.0-98.0); Mean Platelet Volume 10.5 fL (9.4-12.4); Monocytes Absolute Auto 0.3 X10*3/uL (0.1-1.2); Monocytes Percent Auto 6.8 % (2-11); Neutrophils Absolute Auto 1.9 x10*3/uL (2.0-8.3); Neutrophils Percent Auto 47.3 % (45-73); Platelet Count 271 X10*3/uL (160-400); Red Blood Count 5.24 X10*6/uL (4.60-5.80); Red Cell Distribution Width 13.1 % (11.0-16.0); White Blood Count 4.1 X10*3/uL (4.8-10.8)
[2024-09-07 14:25] LABS: Alanine Aminotransferase 21 U/L (0-40); Albumin Level 4.1 g/dL (3.5-5.0); Alkaline Phosphatase 108 U/L (39-117); Anion Gap 9 (12-20); Aspartate Amino Transferase 23 U/L (5-37); Bilirubin Total 0.7 mg/dL (0.0-1.0); Blood Urea Nitrogen 16 mg/dL (9-16); Calcium 9.3 mg/dL (8.4-10.2); Carbon Dioxide 28 mmol/L (22-29); Chloride 106 mmol/L (96-108); Estimated Glomerular Filt Rate > 60; Glucose Random 87 mg/dL (60-115); Sodium 139 mmol/L (135-145); Total Protein 8.1 g/dL (6.5-8.0)
[2024-09-10 15:44] LABS: HIV RNA PCR Qn Copies NOT DETECTED copies/mL (NOT DETECTED); HIV RNA PCR Qn Log Copies NOT DETECTED (NOT DETECTED)
[2024-09-11 17:43] LABS: Absolute CD3 Count 1290 cells/uL (840-3060); Absolute CD4 Count 145 cells/uL (490-1740); Absolute CD8 Count 1103 cells/uL (180-1170); Absolute Lymphocytes 1685 cells/uL (850-3900); CD4 CD8 Ratio 0.13 (0.86-5.00); Percent CD3 Cells 77 % (57-85); Percent CD4 Cells 9 % (30-61); Percent CD8 Cells 66 % (12-42)
== END 2024-09-07 09:23 | disposition home or self-care (01) ==
LOC: HO.CHCLDS 09:22
PROVIDERS: Visit Provider Internal Medicine
DX: B20 Human immunodeficiency virus [HIV] disease (principal)
CPT/HCPCS: 36415; 80053; 85025; 86359; 86360; 87536

== ENCOUNTER 2025-05-02 09:36 | Outpatient (REF) | payer BC, SELFPAY ==
[2025-05-02 14:14] LABS: MANUAL DIFF FLAG NO
[2025-05-02 14:16] LABS: Hematocrit 39.9 % (42.0-52.0); Hemoglobin 14.3 g/dl (14.0-18.0); Imm Gran Abs Auto 0.02 X10*3/uL (0.00-0.03); Imm Gran Pct Auto 0.4 % (0.0-0.4); Lymphocytes Absolute Auto 2.0 X10*3/uL (1.2-4.9); Mean Corpuscular HGB Conc 35.8 g/dl (31.0-36.0); Mean Corpuscular Hemoglobin 30.4 pg (27.0-33.0); Mean Corpuscular Volume 84.7 fL (80.0-98.0); NRBC Abs Auto 0.000 X10*3/uL (0.0-0.012); NRBC Pct Auto 0.0 /100WBC (0.0-0.2); Platelet Count 229 X10*3/uL (160-400); Red Blood Count 4.71 X10*6/uL (4.60-5.80); White Blood Count 4.9 X10*3/uL (4.8-10.8)
[2025-05-02 15:29] LABS: Alanine Aminotransferase 36 U/L (0-40); Albumin Level 4.2 g/dL (3.5-5.0); Alkaline Phosphatase 128 U/L (39-117); Anion Gap 10 (12-20); Aspartate Amino Transferase 34 U/L (5-37); Blood Urea Nitrogen 16 mg/dL (9-16); Calcium 9.0 mg/dL (8.4-10.2); Carbon Dioxide 27 mmol/L (22-29); Chloride 107 mmol/L (96-108); Cholesterol 161 mg/dL (<200); Estimated Glomerular Filt Rate > 60; Potassium 4.4 mmol/L (3.3-5.1); Sodium 140 mmol/L (135-145); Total Protein 7.2 g/dL (6.5-8.0); Triglycerides 164 mg/dL (<150)
[2025-05-02 15:45] LABS: HDL Cholesterol 32 mg/dL (>40)
[2025-05-02 15:47] LABS: Reflex LDLD? No
[2025-05-03 16:13] LABS: HIV RNA PCR Qn Copies 61 copies/mL (NOT DETECTED); HIV RNA PCR Qn Log Copies 1.79 (NOT DETECTED)
== END 2025-05-02 09:37 | disposition home or self-care (01) ==
LOC: HO.CHCLDS 09:36
PROVIDERS: Visit Provider Internal Medicine
DX: B20 Human immunodeficiency virus [HIV] disease (principal); Z13.6 Encounter for screening for cardiovascular disorders
CPT/HCPCS: 36415; 80053; 80061; 85025; 86359; 86360; 87536